=== PATIENT | female | born 1975 | race Caucasian/White ===

== ENCOUNTER 2024-07-27 13:11 | Emergency (ER) | payer BC, SELFPAY ==
--- OUTSIDE RECORDS SUMMARY | 2024-07-27 13:14 | XMS_ITS | Clinical Summary ---
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 828226070 (SNOMED CT) Active Marita Adams DNP,SYSTEMS INTEGRATION MANAGER,[place] P Tender point Sacroiliac joint dysfunction 536454280 (SNOMED CT) Active Marita Adams DNP,SYSTEMS INTEGRATION MANAGER,[place] P Sacroiliac disorder Paresthesia, bilateral legs 22030459 (SNOMED CT) Active Warren Gallagher MD Paresthesia Radicular pain to bilateral lower legs and bilateral feet 70226785 (SNOMED CT) Active Warren Gallagher MD Radicular pain Hip pain 84870784 (SNOMED CT) Active Warren Gallagher MD Hip pain Groin pain 297993886 (SNOMED CT) Active Warren Gallagher MD Inguinal pain Low back pain (LBP) 108561157 (SNOMED CT) Active Warren Gallagher MD Low back pain Medications Medication Instructions Start Date Stop Date Generic Name NDC Provider PREGABALIN 50 MG CAPS 1 capsule by mouth as directed : 1 cap or 50 mg 2 times/day for 1 week. Then increase by 50 mg 2 times/day every 1 week until 200 mg 2 times/day or until pain controlled. pregabalin [id number] Warren Gallagher MD FLUTICASONE PROPIONATE 50 MCG/ACT SUSP Administer 2 spray into both nostrils once a day 07/12 fluticasone propionate 61595913027 Warren Gallagher MD FLUTICASONE PROPIONATE 50 MCG/ACT SUSP Administer 2 spray into both nostrils once a day 07/12 fluticasone propionate 57852447852 Warren Gallagher MD FAMOTIDINE 40 MG TABS Take 1 tablet by mouth twice a day 07/12 famotidine 03717842147 Warren Gallagher MD TRETINOIN 0.025 % CREA Apply 1 pump to skin every night 07/12 tretinoin 28882406354 Warren Gallagher MD IBUPROFEN 200 MG TABS Take 400 mg by mouth 07/12 ibuprofen 87890460975 Warren Gallagher MD CYCLOBENZAPRINE HCL 10 MG TABS Take 1 tablet by mouth every night as needed 07/12 cyclobenzaprine 89589558551 Warren Gallagher MD multivitamin tablet Take 1 tablet by mouth once a day 07/12 multivitamin tablet Warren Gallagher MD LORATADINE 10 MG TBDP Dissolve 10 mg by mouth once a day 07/12 loratadine 49963630180 Warren Gallagher MD ACETAMINOPHEN 500 MG TABS Take by mouth 07/12 acetaminophen 73176227156 Warren Gallagher MD TRETINOIN 0.025 % CREA Apply 1 pump to skin every night 07/12 tretinoin 86766203327 Marita Adams DNP,SYSTEMS INTEGRATION MANAGER,SALES OFFICE ADMINISTRATOR magnesium 200 mg tablet Take 330 mg by mouth every morning magnesium 200 mg tablet Marita Adams DNP,SYSTEMS INTEGRATION MANAGER,SALES OFFICE ADMINISTRATOR ALBUTEROL SULFATE HFA 108 (90 Base) MCG/ACT AERS Inhale 2 puff every six hours as needed 12/19 albuterol sulfate 80415177125 Marita Adams DNP,SYSTEMS INTEGRATION MANAGER,SALES OFFICE ADMINISTRATOR FAMOTIDINE 40 MG TABS Take 1 tablet by mouth twice a day 07/12 famotidine 71282565539 Marita Adams DNPSYSTEMS INTEGRATION MANAGER,SALES OFFICE ADMINISTRATOR ACETAMINOPHEN 500 MG TABS Take by mouth 07/12 acetaminophen 97378076682 Marita Adams DNPSYSTEMS INTEGRATION MANAGER,SALES OFFICE ADMINISTRATOR LORATADINE 10 MG TBDP Dissolve 10 mg by mouth once a day 07/12 loratadine 93502465156 Marita Adams DNPSYSTEMS INTEGRATION MANAGER,SALES OFFICE ADMINISTRATOR CYCLOBENZAPRINE HCL 10 MG TABS Take 1 tablet by mouth every night as needed 07/12 cyclobenzaprine 73425377445 Marita Adams DNP,SYSTEMS INTEGRATION MANAGER,SALES OFFICE ADMINISTRATOR FLUTICASONE PROPIONATE 50 MCG/ACT SUSP Administer 2 spray into both nostrils once a day 07/12 fluticasone propionate 15329491389 Marita Adams DNPSYSTEMS INTEGRATION MANAGER,SALES OFFICE ADMINISTRATOR LIDOCAINE VISCOUS HCL 2 % SOLN Apply 10 ml every six hours as needed 12/19 lidocaine hcl 69842327886 Marita Adams DNPSYSTEMS INTEGRATION MANAGER,SALES OFFICE ADMINISTRATOR multivitamin tablet Take 1 tablet by mouth once a day 07/12 multivitamin tablet Marita Adams DNP,SYSTEMS INTEGRATION MANAGER,SALES OFFICE ADMINISTRATOR IBUPROFEN 200 MG TABS Take 400 mg by mouth 07/12 ibuprofen 82364361959 Marita Adams DNPSYSTEMS INTEGRATION MANAGER,SALES OFFICE ADMINISTRATOR FLUTICASONE PROPIONATE 50 MCG/ACT SUSP Administer 2 spray into both nostrils once a day 08/15 fluticasone propionate 82466374427 Marita Adams DNPSYSTEMS INTEGRATION MANAGER,SALES OFFICE ADMINISTRATOR TRETINOIN 0.025 % CREA APPLY ONE APPLICATION TOPICALLY AT BEDTIME 12/19 tretinoin 44764632324 QIEUSER QIEUSER multivitamin tablet Take 1 tablet by mouth daily. 12/19 multivitamin tablet QIEUSER QIEUSER magnesium 200 mg tablet Take 330 mg by mouth every morning before breakfast. 12/19 magnesium 200 mg tablet QIEUSER QIEUSER LORATADINE 10 MG TBDP Dissolve 10 mg in the mouth daily. Seasonal; summer and fall 12/19 loratadine 92239789840 QIEUSER QIEUSER LIDOCAINE VISCOUS HCL 2 % SOLN Apply 10 mL to the mouth or throat every 6 (six) hours as needed for pain. 12/19 lidocaine hcl 53782389408 QIEUSER QIEUSER IBUPROFEN 200 MG TABS Take 400 mg by mouth. 12/19 ibuprofen 35548147201 QIEUSER QIEUSER FLUTICASONE PROPIONATE 50 MCG/ACT SUSP Administer 2 sprays into each nostril daily. 12/19 fluticasone propionate 84459627664 QIEUSER QIEUSER FLUTICASONE PROPIONATE 50 MCG/ACT SUSP Administer 2 sprays into each nostril daily. 08/15 fluticasone propionate 50608808605 QIEUSER QIEUSER FAMOTIDINE 40 MG TABS Take 1 tablet (40 mg total) by mouth 2 (two) times a day. 12/19 famotidine 71852986483 QIEUSER QIEUSER CYCLOBENZAPRINE HCL 10 MG TABS TAKE ONE TABLET BY MOUTH AT BEDTIME NEEDED FOR MUSCLE SPASMS 12/19 cyclobenzaprine 98231558090 QIEUSER QIEUSER ALBUTEROL SULFATE HFA 108 (90 Base) MCG/ACT AERS Inhale 2 puffs every 6 (six) hours as needed for wheezing for up to 14 days. 12/19 albuterol sulfate 58844740943 QIEUSER QIEUSER ACETAMINOPHEN 500 MG TABS Take by mouth. 12/19 acetaminophen 64913833668 QIEUSER QIEUSER Medications Administered No information available. Allergies, Adverse Reactions, Alerts Allergy Name Reaction Description Start Date Severity Statu s Provider LEVOFLOXACIN Nausea And Vomiting Mild Active Ellis Marin Results Date Name Value Unit Range Flag Description Internal Other: Authorizatio n - OBS [email or web address] Yes Authoriza tion: Release of Information - Authorize [facility] - Payment and Healthcare Operations ROIAUTHOTHER Yes Authoriz ation: Release of Information - Authorize Others/Insurance - Payment and Healthcare Operations HIECONSENT Yes Consent To Release information to the Health Information Exchange (HIE) [email or web address] Yes Authorizat ion: Authorization for [facility] to leave messages, voicemail, send text messages, send emails AUTHRELHCARE Yes Authoriz ation: Release/Retrieval of Information to/from Healthcare Facilities, Pharmacy Benefit Payers and Providers AUTHPRIVPRAC Yes Authoriz ation: Notice of privacy practices AUTHBENEFIT Yes Authoriza tion: Assignment of Benefits and Payment Agreement Internal Other: Verbal Autho rization/Emergency Contact - OBS VERBAL_EMER Done Verbal au thorization and emergency contact Office Visit: Office Visit f ax+mail MEDS REVIEW Done Documenta tion of current medications (procedure) Plan of Care Type Date Detail Referral Other Referral Pending order Follow up Pending order Follow up Pending order Follow up Pending order Follow up Pending order Immunofixation S marty w/Electrophoresis Pending order Other Test Pending order Update Referring Provider Pending order Follow up with N eurologist or EDDIE Pending order Update Referring Provider Pending order Follow up as nee ded Pending order EMG bilateral lo w ext Procedures Code Procedure Name Date Entry Date [facility]-[id number] Documentation of current medicatio ns ORDERS Immunofixation Serum w/Electrophoresis 24/04/15 ORDERS Other Test CPT-45996 Skin Biopsy, 1 lesion 03/12 CPT-06877 Skin Biopsy, each additional lesion 03/12 ORDERS Update Referring Provider 22/02/19 ORDERS Update Referring Provider 20 24/12/19 ORDERS Other Referral ORDERS Follow up as needed ORDERS Follow up with Neurologist or EDDIE ORDERS EMG bilateral low ext 11/20 CPT-55128 Nerve Conduction 7-8 studies CPT-44224 EMG with NCS (5+ muscles) - 2 limbs 12/17 [facility]-[id number] Documentation of current medicatio ns Vital Signs Date Name Value Unit Description Heart Rate 66 /min pulse rate Immunizations No information available. Advance Directives No information available.
[2024-07-27 13:30] VITALS: BP 143/91; PULSE 85; RESP 16; TEMP 36.6; O2SAT 98; BMI 18.1
--- NOTE | 2024-07-27 14:05 | ED.GENADULT ---
HPI - General Adult General Chief complaint: Psychiatric Problem/Disorder <Marisela Means MD - Last Filed: 08/02/24 08:20> Stated complaint: would like drug screen <Marisela Means MD - Last Filed: 08/02/24 08:20> Time Seen by Provider: 07/27/24 13:15 <Marisela Means MD - Last Filed: 08/02/24 08:20> Source: patient and family <Marisela Means MD - Last Filed: 08/02/24 08:20> Mode of arrival: ambulatory <Marisela Means MD - Last Filed: 08/02/24 08:20> Limitations: altered mental status <Marisela Means MD - Last Filed: 08/02/24 08:20> History of Present Illness HPI narrative: 49-year-old female presenting today requesting a toxicology screen because she believes that her is poisoning her. Patient states that she has not been able to sleep for 3 days and when she does sleep she wakes up in the middle of the night not feeling well. She is convinced that her is trying to poison her. She states that she has asked him to move out and he refuses. She states that she has seen multiple doctors in the last several weeks and they are all trying to ?dope her up?. She states that she stop taking all of her medications because of this. Patient is also requesting a hepatitis screen. She states that she has never had 1 and she feels this is necessary. Patient's vjxpxc-ni-anp is here with her and is quite concerned about the patient's behavior. She states that the patient has not slept at all in the last 3 days and she has been very manic and paranoid. The this is not necessarily new behavior according to the zqdntv-ul-cqf, however it has progressively gotten worse. Ctjxkl-jp-vne also states that the patient has mentioned on multiple occasions wanting to kill herself, patient herself denies this today. Looking through medical records from [facility]: Past medical history significant for back pain, tobacco use disorder, depression, anxiety. Patient was on ProAir inhaler as needed, Cymbalta, was on hydrocodone in the past for her pain. Family history: Mother has a history of hypertension, thyroid disease, dementia, anxiety, bipolar disorder, depression, lung cancer. Father had aortic stenosis, kidney disease, hypertension and history of stroke. Patient's son has ADD, ADHD, anxiety, PTSD. Her other son has anxiety, ADHD. Allergies include Levaquin which causes nausea and vomiting. <Marisela Means MD - Last Filed: 08/02/24 08:20> Related Data Home medications: Previous Rx's ?Medication ?Instructions ?Recorded lorazepam 2 mg tablet (Ativan) 2 mg PO QHS PRN #1 tab 07/28/24 <Marisela Means MD - Last Filed: 08/02/24 08:20> Allergies/adverse reactions: Allergies Allergy/AdvReac Type Severity Reaction Status Date / Time levofloxacin (From Levaquin) AdvReac nausea Verified 07/27/24 14:06 <Marisela Means MD - Last Filed: 08/02/24 08:20> Review of Systems Status of ROS: Reports: 10 or more systems reviewed and unremarkable except as noted in History and below <Marisela Means MD - Last Filed: 08/02/24 08:20> PFSH PFS Social History: Social History Smoking Status: Current every day smoker Do you use any of these nicotine containing products: None Non-prescribed substance use details: uses cbd and thc <Marisela Menas MD - Last Filed: 08/02/24 08:20> Exam Narrative: Exam Narrative: Well-nourished well-developed patient in no acute distress. Alert and oriented x3. Patient is very animated, speech is pressured and loud, and includes endless expletives. The patient appears to be very angry and her current situation, angry that her is trying to kill her. She is exhibiting tangential and irrational thoughts. Very difficult to keep the patient on task. Patient speaks in full sentences without needing to catch her breath. HEENT: Normocephalic atraumatic. Pupils are equally round reactive to light. Extraocular muscles are intact. Conjunctivae are moist without any icterus noted. Moist mucous membranes. Neck is soft without any lymphadenopathy or thyromegaly. No masses are appreciated. Cardiovascular: Heart is regular rate and rhythm S1 and S2 are present without any murmurs. Lungs: Clear to auscultation bilaterally no wheezes rhonchi or rales are appreciated. Patient takes deep breaths without any discomfort. Abdomen: Soft and nontender nondistended with normal bowel sounds. Extremities: Bilateral lower extremities are without edema. Normal DP and PT pulses. Skin: Well perfused without any obvious rashes. <Marisela Means MD - Last Filed: 08/02/24 08:20> Const: Vital Signs, click to edit/add: Vital Signs - 24 hr 07/27/24 13:30 07/27/24 21:00 07/28/24 08:00 Temperature 97.9 F 97.1 F L 98.5 F Pulse Rate [Right Pulse Oximeter] 85 64 61 Respiratory Rate 16 16 18 Blood Pressure [Le ft Upper Arm] 143/91 H 135/91 H 123/60 Pulse Oximetry 98 95 94 Oxygen Delivery Me thod Room Air Room Air Room Air <Marisela Means MD - Last Filed: 08/02/24 08:20> Vital Signs, click to edit/add: Vital Signs - 24 hr 07/27/24 13:30 07/27/24 21:00 07/28/24 08:00 Temperature 97.9 F 97.1 F L 98.5 F Pulse Rate [Right Pulse Oximeter] 85 64 61 Respiratory Rate 16 16 18 Blood Pressure [Le ft Upper Arm] 143/91 H 135/91 H 123/60 Pulse Oximetry 98 95 94 Oxygen Delivery Me thod Room Air Room Air Room Air <Vee Nguyen MD - Last Filed: 07/30/24 23:54> Vital Signs, click to edit/add: Vital Signs - 24 hr 07/27/24 13:30 07/27/24 21:00 07/28/24 08:00 Temperature 97.9 F 97.1 F L 98.5 F Pulse Rate [Right Pulse Oximeter] 85 64 61 Respiratory Rate 16 16 18 Blood Pressure [Le ft Upper Arm] 143/91 H 135/91 H 123/60 Pulse Oximetry 98 95 94 Oxygen Delivery Me thod Room Air Room Air Room Air <Tong Melgoza MD - Last Filed: 07/28/24 00:20> Vital Signs, click to edit/add: Vital Signs - 24 hr 07/27/24 13:30 07/27/24 21:00 07/28/24 08:00 Temperature 97.9 F 97.1 F L 98.5 F Pulse Rate [Right Pulse Oximeter] 85 64 61 Respiratory Rate 16 16 18 Blood Pressure [Le ft Upper Arm] 143/91 H 135/91 H 123/60 Pulse Oximetry 98 95 94 Oxygen Delivery Me thod Room Air Room Air Room Air <Marisela Nguyen MD - Last Filed: 07/28/24 12:46> Course Course ED Course: Upon further review of the patient's medical records she has been dealing with chronic pain, has been having bilateral low back pain leg pain feet pain. She had an L4-L5 injection which made her symptoms worse. Is also complaining of neck shoulder hips and ankle pain. She has gone through extensive testing including EMG testing as well as multiple specific laboratory examinations which have been unremarkable. Them RI of the lumbar spine did not show any significant pathology she had an epidermal nerve fiber density test which was normal. These things involved none in the last couple of months. She has also been seen by production line assembler: Abdominal CT and pelvic MRI both done within the last year. She has also seen ENT recently in patient overall is very upset that she has seen so many doctors and has not had a definitive diagnosis regarding her myriad of symptoms. We did go ahead and draw labs including a drug screen and hepatitis panel. Blood work is unremarkable. Drug screen is positive for THC which the patient admits to taking for pain control. Patient had a mental health evaluation from [facility] -it was difficult for her to hold a conversation and the pfqtmx-uc-jds did not want to speak frankly in front of the patient. However, again we went on for the patient's jujxow-wm-bnu states that the patient has mention suicide more than 1 occasion, has not slept in 3 days and has been behaving very erratically over the last several days. Because of this I do not feel it is safe for this patient to go home at this time. I did discuss this with her. Patient tells me that she does not trust any doctors or any hospitals and that she knows that every one is trying to kill her. Because of this, patient will be placed on hold at this time. Inpatient psychiatric evaluation recommended. <Marisela Means MD - Last Filed: 08/02/24 08:20> Upon further review of the patient's medical records she has been dealing with chronic pain, has been having bilateral low back pain leg pain feet pain. She had an L4-L5 injection which made her symptoms worse. Is also complaining of neck shoulder hips and ankle pain. She has gone through extensive testing including EMG testing as well as multiple specific laboratory examinations which have been unremarkable. Them RI of the lumbar spine did not show any significant pathology she had an epidermal nerve fiber density test which was normal. These things involved none in the last couple of months. She has also been seen by production line assembler: Abdominal CT and pelvic MRI both done within the last year. She has also seen ENT recently in patient overall is very upset that she has seen so many doctors and has not had a definitive diagnosis regarding her myriad of symptoms. We did go ahead and draw labs including a drug screen and hepatitis panel. Blood work is unremarkable. Drug screen is positive for THC which the patient admits to taking for pain control. Patient had a mental health evaluation from [facility] -it was difficult for her to hold a conversation and the phmvgo-jp-mpv did not want to speak frankly in front of the patient. However, again we went on for the patient's zyhipc-gu-vvh states that the patient has mention suicide more than 1 occasion, has not slept in 3 days and has been behaving very erratically over the last several days. Because of this I do not feel it is safe for this patient to go home at this time. I did discuss this with her. Patient tells me that she does not trust any doctors or any hospitals and that she knows that every one is trying to kill her. Because of this, patient will be placed on hold at this time. Inpatient psychiatric evaluation recommended. Patient signed out to Dr. Melgoza at shift change-[address] Means 49-year-old female presenting to the ER today with family. Has had recent paranoid delusions that her 's trying to poison her and also dealing with chronic pain and mental health problems. She is now developing paranoid thoughts that her doctors are trying to poison her with medications. She has been increasingly agitated and anxious at home. She stopped her recent medications, apparently due to her paranoid thoughts. Family reports that she has not had any sleep for 3 days. She has also made some suicidal statements. She has been angry and sometimes belligerent but not violent. She has been assessed and is medically clear. She has been evaluated by [facility] and they recommend inpatient mental health placement She believes that inpatient mental health placement is an attempt to poison her. Therefore she has been placed on hold by Dr. Means I reassessed the patient at about 9:30 p.m.. Her sxqufx-fr-dhz was at her bedside. Patient remained paranoid, guarded, and denying that she has any problems. She is refusing to eat or drink any food that we give her here in the hospital because she is concerned that it might be poisoned. She says she will only drink ?hy Vee water. ?. Her fsvwgf-mi-nxd is reassuring and they interact well together. Discussed the plan is for her to remain on a hold. Unfortunately way of not yet been able to identify any appropriate inpatient mental health unit to meet her needs. Therefore she will have to board here in the [facility] until a bed becomes available, possibly overnight. I offered her food and water here but she refused. I offered medications for anxiety or insomnia and she is refusing, citing that she thinks I am trying to poison her. Recheck-her nurse reports that she is willing to take an Ativan. Ativan 1 mg p.o. ordered. Nurses report that she did have some water and a salad and a small snack. Signed out to Dr. Nguyen <Tong Melgoza MD - Last Filed: 07/28/24 00:20> Reevaluation(s) Time of Reevaluation #1: 00:03 <Vee Nguyen MD - Last Filed: 07/30/24 23:54> Reevaluation #1: Dr. Nguyen- I assumed care for patient overnight. Chart is reviewed. Classic choco symptoms. Will start 250 Depakote delayed release b.i.d. will we continue to await placement. Labs are reviewed, no contraindications. End of shift update: Patient ambulated to bathroom overnight, was calm and respectful with staff. Still verbalizing paranoid delusions but no aggressive or problematic behavior. She declined to take the Depakote which is not terribly surprising, it is still ordered for her to take twice daily and will continue to be offered. Vitals have remained stable, has not required any additional intervention. Labs were reviewed with no additional concerns. We are awaiting potential transfer later today. <Vee Nguyen MD - Last Filed: 07/30/24 23:54> Consultations Consultation #1: Spoke with the tele psychiatrist Dr. Reynoso. Went over patient's history, she will talk to the patient, review prior notes. 12:19 p.m.: The psychiatrist spoke with Nicole the krrlpu-lr-fvz, spoke with the patient. Both the psychiatrist and the hvpqcn-mg-vgr feel that a psychiatric hospitalization is not going to be helpful or good for this patient. They both feel that she has no harm to others or herself. This CT wrist does note her to be intense and irritable and angry but the bslkyb-tj-ojp does endorse that her has been mean to her that this is true. She does not feel that she is necessarily delusional. In the past when she has ramped up like this, sleep has calmed her down. She does have future appointments for her physical issues, the psychiatrist does wonder about somatic type pain in this patient. Discussing bipolar disorder does flare her. She is wondering if we could get her prescription for 2 mg of oral Ativan and try to have her sleep. She is recommending discharge. We discussed other potential sleep aids that I could talk to the patient. She thought mirtazapine or trazodone might be beneficial. I did subsequently review this with the patient. She has tried trazodone in the past and did not help her. She has also used Ambien was sleep walking with that. She does talk about her physical pain, she is having hysteroscopy, CT next week. She does states that she is done genetic testing for psychiatric medications. She states citalopram, many other medicines she is found not respond to. She has tried melatonin vkor-ixr-giawzpx sleep aids. She is agreeable to go back to talk to the pharmacist to reviewed this genetic testing with her, was done at [facility]. Reviewed with her that I do not have any long-term sleep solution for her. I do not have access to her [facility] records. I do recommend that she follow up there if she is having ongoing issues. She is agreeable to trying 2 mg oral Ativan to try to get some sleep at home. If this is not helping, may need to proceed for further medical evaluation. She may need inpatient psychiatric evaluation if this is not helpful. <Marisela Nguyen MD - Last Filed: 07/28/24 12:46> Time: 11:24 <Marisela Nguyen MD - Last Filed: 07/28/24 12:46> Vital Signs Vital signs: Initial Vital Signs Temperature 97.9 F 07/27/24 13:30 Temperature Source Oral 07/27/24 13:30 Pulse Rate 85 07/27/24 13:30 Respiratory Rate 16 07/27/24 13:30 Blood Pressure 143/91 H 07/27/24 13:30 Blood Pressure Mean 108 H 07/27/24 13:30 Blood Pressure Position Sitting 07/27/24 13:30 Pulse Oximetry 98 07/27/24 13:30 Oxygen Delivery Method Room Air 07/27/24 13:30 Vital Signs Temperature 97.9 F 07/27/24 13:30 Pulse Rate 85 07/27/24 13:30 Respiratory Rate 16 07/27/24 13:30 Blood Pressure 143/91 H 07/27/24 13:30 Pulse Oximetry 98 07/27/24 13:30 Oxygen Delivery Method Room Air 07/27/24 13:30 Temperature 98.5 F 07/28/24 08:00 Pulse Rate 61 07/28/24 08:00 Respiratory Rate 18 07/28/24 08:00 Blood Pressure 123/60 07/28/24 08:00 Pulse Oximetry 94 07/28/24 08:00 Oxygen Delivery Method Room Air 07/28/24 08:00 <Marisela Means MD - Last Filed: 08/02/24 08:20> Initial Vital Signs Temperature 97.9 F 07/27/24 13:30 Temperature Source Oral 07/27/24 13:30 Pulse Rate 85 07/27/24 13:30 Respiratory Rate 16 07/27/24 13:30 Blood Pressure 143/91 H 07/27/24 13:30 Blood Pressure Mean 108 H 07/27/24 13:30 Blood Pressure Position Sitting 07/27/24 13:30 Pulse Oximetry 98 07/27/24 13:30 Oxygen Delivery Method Room Air 07/27/24 13:30 Vital Signs Temperature 97.9 F 07/27/24 13:30 Pulse Rate 85 07/27/24 13:30 Respiratory Rate 16 07/27/24 13:30 Blood Pressure 143/91 H 07/27/24 13:30 Pulse Oximetry 98 07/27/24 13:30 Oxygen Delivery Method Room Air 07/27/24 13:30 Temperature 98.5 F 07/28/24 08:00 Pulse Rate 61 07/28/24 08:00 Respiratory Rate 18 07/28/24 08:00 Blood Pressure 123/60 07/28/24 08:00 Pulse Oximetry 94 07/28/24 08:00 Oxygen Delivery Method Room Air 07/28/24 08:00 <Vee Nguyen MD - Last Filed: 07/30/24 23:54> Initial Vital Signs Temperature 97.9 F 07/27/24 13:30 Temperature Source Oral 07/27/24 13:30 Pulse Rate 85 07/27/24 13:30 Respiratory Rate 16 07/27/24 13:30 Blood Pressure 143/91 H 07/27/24 13:30 Blood Pressure Mean 108 H 07/27/24 13:30 Blood Pressure Position Sitting 07/27/24 13:30 Pulse Oximetry 98 07/27/24 13:30 Oxygen Delivery Method Room Air 07/27/24 13:30 Vital Signs Temperature 97.9 F 07/27/24 13:30 Pulse Rate 85 07/27/24 13:30 Respiratory Rate 16 07/27/24 13:30 Blood Pressure 143/91 H 07/27/24 13:30 Pulse Oximetry 98 07/27/24 13:30 Oxygen Delivery Method Room Air 07/27/24 13:30 Temperature 98.5 F 07/28/24 08:00 Pulse Rate 61 07/28/24 08:00 Respiratory Rate 18 07/28/24 08:00 Blood Pressure 123/60 07/28/24 08:00 Pulse Oximetry 94 07/28/24 08:00 Oxygen Delivery Method Room Air 07/28/24 08:00 <Tong Melgoza MD - Last Filed: 07/28/24 00:20> Initial Vital Signs Temperature 97.9 F 07/27/24 13:30 Temperature Source Oral 07/27/24 13:30 Pulse Rate 85 07/27/24 13:30 Respiratory Rate 16 07/27/24 13:30 Blood Pressure 143/91 H 07/27/24 13:30 Blood Pressure Mean 108 H 07/27/24 13:30 Blood Pressure Position Sitting 07/27/24 13:30 Pulse Oximetry 98 07/27/24 13:30 Oxygen Delivery Method Room Air 07/27/24 13:30 Vital Signs Temperature 97.9 F 07/27/24 13:30 Pulse Rate 85 07/27/24 13:30 Respiratory Rate 16 07/27/24 13:30 Blood Pressure 143/91 H 07/27/24 13:30 Pulse Oximetry 98 07/27/24 13:30 Oxygen Delivery Method Room Air 07/27/24 13:30 Temperature 98.5 F 07/28/24 08:00 Pulse Rate 61 07/28/24 08:00 Respiratory Rate 18 07/28/24 08:00 Blood Pressure 123/60 07/28/24 08:00 Pulse Oximetry 94 07/28/24 08:00 Oxygen Delivery Method Room Air 07/28/24 08:00 <Marisela Nguyen MD - Last Filed: 07/28/24 12:46> Medications Administered Medications: Discontinued Medications Generic Name Dose Route Start Last Admin Trade Name Freq PRN Reason Stop Dose Admin Divalproex Sodium 250 mg 07/28/24 00:05 07/28/24 09:08 Divalproex Delayed Release 250 Mg Tablet PO Not Given BID CHERELLE Lorazepam 1 mg 07/27/24 16:16 07/27/24 16:20 Lorazepam 1 Mg Tablet PO 07/27/24 16:17 1 mg ONCE ONE Administration Lorazepam 1 mg 07/27/24 22:57 07/27/24 23:07 Lorazepam 1 Mg Tablet PO 07/27/24 22:58 1 mg ONCE ONE Administration Olanzapine 10 mg 07/27/24 16:12 07/27/24 16:15 Olanzapine 5 Mg Tab.Rapdis PO 07/27/24 16:13 Not Given ONCE ONE <Marisela Means MD - Last Filed: 08/02/24 08:20> Discontinued Medications Generic Name Dose Route Start Last Admin Trade Name Freq PRN Reason Stop Dose Admin Divalproex Sodium 250 mg 07/28/24 00:05 07/28/24 09:08 Divalproex Delayed Release 250 Mg Tablet PO Not Given BID CHERELLE Lorazepam 1 mg 07/27/24 16:16 07/27/24 16:20 Lorazepam 1 Mg Tablet PO 07/27/24 16:17 1 mg ONCE ONE Administration Lorazepam 1 mg 07/27/24 22:57 07/27/24 23:07 Lorazepam 1 Mg Tablet PO 07/27/24 22:58 1 mg ONCE ONE Administration Olanzapine 10 mg 07/27/24 16:12 07/27/24 16:15 Olanzapine 5 Mg Tab.Rapdis PO 07/27/24 16:13 Not Given ONCE ONE <Vee Nguyen MD - Last Filed: 07/30/24 23:54> Discontinued Medications Generic Name Dose Route Start Last Admin Trade Name Freq PRN Reason Stop Dose Admin Divalproex Sodium 250 mg 07/28/24 00:05 07/28/24 09:08 Divalproex Delayed Release 250 Mg Tablet PO Not Given BID CHERELLE Lorazepam 1 mg 07/27/24 16:16 07/27/24 16:20 Lorazepam 1 Mg Tablet PO 07/27/24 16:17 1 mg ONCE ONE Administration Lorazepam 1 mg 07/27/24 22:57 07/27/24 23:07 Lorazepam 1 Mg Tablet PO 07/27/24 22:58 1 mg ONCE ONE Administration Olanzapine 10 mg 07/27/24 16:12 07/27/24 16:15 Olanzapine 5 Mg Tab.Rapdis PO 07/27/24 16:13 Not Given ONCE ONE <Tong Melgoza MD - Last Filed: 07/28/24 00:20> Discontinued Medications Generic Name Dose Route Start Last Admin Trade Name Freq PRN Reason Stop Dose Admin Divalproex Sodium 250 mg 07/28/24 00:05 07/28/24 09:08 Divalproex Delayed Release 250 Mg Tablet PO Not Given BID CHERELLE Lorazepam 1 mg 07/27/24 16:16 07/27/24 16:20 Lorazepam 1 Mg Tablet PO 07/27/24 16:17 1 mg ONCE ONE Administration Lorazepam 1 mg 07/27/24 22:57 07/27/24 23:07 Lorazepam 1 Mg Tablet PO 07/27/24 22:58 1 mg ONCE ONE Administration Olanzapine 10 mg 07/27/24 16:12 07/27/24 16:15 Olanzapine 5 Mg Tab.Rapdis PO 07/27/24 16:13 Not Given ONCE ONE <Marisela Nguyen MD - Last Filed: 07/28/24 12:46> Medical Decision Making MDM Narrative Medical decision making narrative: 49-year-old female with paranoid delusions. Concern about self-harm. Patient will be transferred to inpatient psych. <Marisela Means MD - Last Filed: 08/02/24 08:20> Lab Data Lab results reviewed: Yes I reviewed the patient's lab results <Vee Nguyen MD - Last Filed: 07/30/24 23:54> Lab results narrative: Labs reassuring. <Vee Nguyen MD - Last Filed: 07/30/24 23:54> Labs: Lab Results 07/27/24 07/27/24 07/27/24 Range/Units 14:24 14:25 14:30 WBC 9.51 (4.50-11.00) K/uL RBC 4.77 (4.00-5.20) m/uL Hgb 14.3 (12.0-16.0) gm/dL Hct 43.5 (33.0-51.0) % MCV 91 (80-100) fL MCH 30 (26-34) pg MCHC 33 (32-36) gm/dL RDW Coeff of Halley 12.2 (11.5-15.5) % Plt Count 328 (140-440) K/uL Neut % (Auto) 67.4 (42.0-72.0) % Lymph % (Auto) 24.8 (20-44) % Clinch % (Auto) 6.3 (0.0-11.0) % Eos % (Auto) 0.9 (0.0-7.0) % Baso % (Auto) 0.4 (0.0-3.0) % Neut # (Auto) 6.40 (1.7-7.0) K/uL Lymph # (Auto) 2.36 (0.90-2.90) K/uL Clinch # (Auto) 0.60 (0.00-0.90) K/UL Eos # (Auto) 0.09 (0.00-0.50) K/uL Baso # (Auto) 0.04 (0.00-0.30) K/uL Abs Immat Gran (auto) 0.02 (0.00-0.30) K/uL Imm/Tot Granulo (auto) 0.2 % Sodium 141 (135-149) mmol/L Potassium 3.8 (3.6-5.1) mmol/L Chloride 106 (96-114) mmol/L Carbon Dioxide 26 (20-32) mmol/L Anion Gap 9 (7-15) mEq/L BUN 17 (5-24) mg/dL Creatinine 0.6 (0.5-1.5) mg/dL Estimated Creat Clear 90.96 Estimated GFR 110 ml/min Glucose 100 (60-115) mg/dL Calcium 9.6 (8.4-10.6) mg/dL Total Bilirubin 0.4 (0.1-1.5) mg/dL Direct Bilirubin 0.2 (0.0-0.5) mg/dL AST 18 (12-35) U/L ALT 19 (4-35) U/L Alkaline Phosphatase 69 (40-150) U/L Total Protein 6.9 (6.0-8.3) g/dL Albumin 4.5 (3.3-5.0) g/dL TSH 0.676 (0.270-4.20) uIU/mL Urine Color Yellow (Yellow) Urine Appearance Clear (Clear) Urine pH 6.0 (5.0-8.5) Ur Specific [place] 1.020 (1.000-1.030) Urine Protein Negative (Negative) Urine Glucose (UA) Negative (Negative) Urine Ketones Negative (Negative) Urine Blood Negative (Negative) Urine Nitrite Negative (Negative) Urine Bilirubin Negative (Negative) Urine Urobilinogen 0.2 (0.2-1.0) Ur Leukocyte Esterase Negative (Negative) Urine RBC 0-2 (0-2) Urine WBC 0-2 (0-5) Ur Squamous Epith Cells None (None-Few) Urine Bacteria None (None) Urine HCG, Qual Negative (Negative) Salicylates < 1.0 L (1.0-10) mg/dL Urine Opiates Screen Negative (Negative) Ur Oxycodone Screen Negative (Negative) Urine Methadone Screen Negative (Negative) Acetaminophen < 10.0 L (10.0-30.0) ug/mL Ur Barbiturates Screen Negative (Negative) U Tricyclic Antidepress Negative (Negative) Ur Phencyclidine Scrn Negative (Negative) Ur Amphetamines Screen Negative (Negative) U Methamphetamines Scrn Negative (Negative) U Benzodiazepines Scrn Negative (Negative) Urine Cocaine Screen Negative (Negative) U Marijuana (THC) Screen POSITIVE A (Negative) Ur Drug Screen Comment See Note Ethyl Alcohol < 0.00 L (0.01-0.03) % SARS-CoV-2 (PCR) Negative SARS-CoV-2 (Negative) Hepatitis A IgM Ab Negative (Negative) Hep Bs Antigen Negative (Negative) Hep B Core IgM Ab Negative (Negative) Hep C Ab Index (SERENA) 0.13 IV Hep C Ab Interp SERENA Negative (Negative) Hepatitis Interpret See Note <Marisela Means MD - Last Filed: 08/02/24 08:20> Lab Results 07/27/24 07/27/24 07/27/24 Range/Units 14:24 14:25 14:30 WBC 9.51 (4.50-11.00) K/uL RBC 4.77 (4.00-5.20) m/uL Hgb 14.3 (12.0-16.0) gm/dL Hct 43.5 (33.0-51.0) % MCV 91 (80-100) fL MCH 30 (26-34) pg MCHC 33 (32-36) gm/dL RDW Coeff of Halley 12.2 (11.5-15.5) % Plt Count 328 (140-440) K/uL Neut % (Auto) 67.4 (42.0-72.0) % Lymph % (Auto) 24.8 (20-44) % Clinch % (Auto) 6.3 (0.0-11.0) % Eos % (Auto) 0.9 (0.0-7.0) % Baso % (Auto) 0.4 (0.0-3.0) % Neut # (Auto) 6.40 (1.7-7.0) K/uL Lymph # (Auto) 2.36 (0.90-2.90) K/uL Clinch # (Auto) 0.60 (0.00-0.90) K/UL Eos # (Auto) 0.09 (0.00-0.50) K/uL Baso # (Auto) 0.04 (0.00-0.30) K/uL Abs Immat Gran (auto) 0.02 (0.00-0.30) K/uL Imm/Tot Granulo (auto) 0.2 % Sodium 141 (135-149) mmol/L Potassium 3.8 (3.6-5.1) mmol/L Chloride 106 (96-114) mmol/L Carbon Dioxide 26 (20-32) mmol/L Anion Gap 9 (7-15) mEq/L BUN 17 (5-24) mg/dL Creatinine 0.6 (0.5-1.5) mg/dL Estimated Creat Clear 90.96 Estimated GFR 110 ml/min Glucose 100 (60-115) mg/dL Calcium 9.6 (8.4-10.6) mg/dL Total Bilirubin 0.4 (0.1-1.5) mg/dL Direct Bilirubin 0.2 (0.0-0.5) mg/dL AST 18 (12-35) U/L ALT 19 (4-35) U/L Alkaline Phosphatase 69 (40-150) U/L Total Protein 6.9 (6.0-8.3) g/dL Albumin 4.5 (3.3-5.0) g/dL TSH 0.676 (0.270-4.20) uIU/mL Urine Color Yellow (Yellow) Urine Appearance Clear (Clear) Urine pH 6.0 (5.0-8.5) Ur Specific [place] 1.020 (1.000-1.030) Urine Protein Negative (Negative) Urine Glucose (UA) Negative (Negative) Urine Ketones Negative (Negative) Urine Blood Negative (Negative) Urine Nitrite Negative (Negative) Urine Bilirubin Negative (Negative) Urine Urobilinogen 0.2 (0.2-1.0) Ur Leukocyte Esterase Negative (Negative) Urine RBC 0-2 (0-2) Urine WBC 0-2 (0-5) Ur Squamous Epith Cells None (None-Few) Urine Bacteria None (None) Urine HCG, Qual Negative (Negative) Salicylates < 1.0 L (1.0-10) mg/dL Urine Opiates Screen Negative (Negative) Ur Oxycodone Screen Negative (Negative) Urine Methadone Screen Negative (Negative) Acetaminophen < 10.0 L (10.0-30.0) ug/mL Ur Barbiturates Screen Negative (Negative) U Tricyclic Antidepress Negative (Negative) Ur Phencyclidine Scrn Negative (Negative) Ur Amphetamines Screen Negative (Negative) U Methamphetamines Scrn Negative (Negative) U Benzodiazepines Scrn Negative (Negative) Urine Cocaine Screen Negative (Negative) U Marijuana (THC) Screen POSITIVE A (Negative) Ur Drug Screen Comment See Note Ethyl Alcohol < 0.00 L (0.01-0.03) % SARS-CoV-2 (PCR) Negative SARS-CoV-2 (Negative) Hepatitis A IgM Ab Negative (Negative) Hep Bs Antigen Negative (Negative) Hep B Core IgM Ab Negative (Negative) Hep C Ab Index (SERENA) 0.13 IV Hep C Ab Interp SERENA Negative (Negative) Hepatitis Interpret See Note <Vee Nguyen MD - Last Filed: 07/30/24 23:54> Lab Results 07/27/24 07/27/24 07/27/24 Range/Units 14:24 14:25 14:30 WBC 9.51 (4.50-11.00) K/uL RBC 4.77 (4.00-5.20) m/uL Hgb 14.3 (12.0-16.0) gm/dL Hct 43.5 (33.0-51.0) % MCV 91 (80-100) fL MCH 30 (26-34) pg MCHC 33 (32-36) gm/dL RDW Coeff of Halley 12.2 (11.5-15.5) % Plt Count 328 (140-440) K/uL Neut % (Auto) 67.4 (42.0-72.0) % Lymph % (Auto) 24.8 (20-44) % Clinch % (Auto) 6.3 (0.0-11.0) % Eos % (Auto) 0.9 (0.0-7.0) % Baso % (Auto) 0.4 (0.0-3.0) % Neut # (Auto) 6.40 (1.7-7.0) K/uL Lymph # (Auto) 2.36 (0.90-2.90) K/uL Clinch # (Auto) 0.60 (0.00-0.90) K/UL Eos # (Auto) 0.09 (0.00-0.50) K/uL Baso # (Auto) 0.04 (0.00-0.30) K/uL Abs Immat Gran (auto) 0.02 (0.00-0.30) K/uL Imm/Tot Granulo (auto) 0.2 % Sodium 141 (135-149) mmol/L Potassium 3.8 (3.6-5.1) mmol/L Chloride 106 (96-114) mmol/L Carbon Dioxide 26 (20-32) mmol/L Anion Gap 9 (7-15) mEq/L BUN 17 (5-24) mg/dL Creatinine 0.6 (0.5-1.5) mg/dL Estimated Creat Clear 90.96 Estimated GFR 110 ml/min Glucose 100 (60-115) mg/dL Calcium 9.6 (8.4-10.6) mg/dL Total Bilirubin 0.4 (0.1-1.5) mg/dL Direct Bilirubin 0.2 (0.0-0.5) mg/dL AST 18 (12-35) U/L ALT 19 (4-35) U/L Alkaline Phosphatase 69 (40-150) U/L Total Protein 6.9 (6.0-8.3) g/dL Albumin 4.5 (3.3-5.0) g/dL TSH 0.676 (0.270-4.20) uIU/mL Urine Color Yellow (Yellow) Urine Appearance Clear (Clear) Urine pH 6.0 (5.0-8.5) Ur Specific [place] 1.020 (1.000-1.030) Urine Protein Negative (Negative) Urine Glucose (UA) Negative (Negative) Urine Ketones Negative (Negative) Urine Blood Negative (Negative) Urine Nitrite Negative (Negative) Urine Bilirubin Negative (Negative) Urine Urobilinogen 0.2 (0.2-1.0) Ur Leukocyte Esterase Negative (Negative) Urine RBC 0-2 (0-2) Urine WBC 0-2 (0-5) Ur Squamous Epith Cells None (None-Few) Urine Bacteria None (None) Urine HCG, Qual Negative (Negative) Salicylates < 1.0 L (1.0-10) mg/dL Urine Opiates Screen Negative (Negative) Ur Oxycodone Screen Negative (Negative) Urine Methadone Screen Negative (Negative) Acetaminophen < 10.0 L (10.0-30.0) ug/mL Ur Barbiturates Screen Negative (Negative) U Tricyclic Antidepress Negative (Negative) Ur Phencyclidine Scrn Negative (Negative) Ur Amphetamines Screen Negative (Negative) U Methamphetamines Scrn Negative (Negative) U Benzodiazepines Scrn Negative (Negative) Urine Cocaine Screen Negative (Negative) U Marijuana (THC) Screen POSITIVE A (Negative) Ur Drug Screen Comment See Note Ethyl Alcohol < 0.00 L (0.01-0.03) % SARS-CoV-2 (PCR) Negative SARS-CoV-2 (Negative) Hepatitis A IgM Ab Negative (Negative) Hep Bs Antigen Negative (Negative) Hep B Core IgM Ab Negative (Negative) Hep C Ab Index (SERENA) 0.13 IV Hep C Ab Interp SERENA Negative (Negative) Hepatitis Interpret See Note <Tong Melgoza MD - Last Filed: 07/28/24 00:20> Lab Results 07/27/24 07/27/24 07/27/24 Range/Units 14:24 14:25 14:30 WBC 9.51 (4.50-11.00) K/uL RBC 4.77 (4.00-5.20) m/uL Hgb 14.3 (12.0-16.0) gm/dL Hct 43.5 (33.0-51.0) % MCV 91 (80-100) fL MCH 30 (26-34) pg MCHC 33 (32-36) gm/dL RDW Coeff of Halley 12.2 (11.5-15.5) % Plt Count 328 (140-440) K/uL Neut % (Auto) 67.4 (42.0-72.0) % Lymph % (Auto) 24.8 (20-44) % Clinch % (Auto) 6.3 (0.0-11.0) % Eos % (Auto) 0.9 (0.0-7.0) % Baso % (Auto) 0.4 (0.0-3.0) % Neut # (Auto) 6.40 (1.7-7.0) K/uL Lymph # (Auto) 2.36 (0.90-2.90) K/uL Clinch # (Auto) 0.60 (0.00-0.90) K/UL Eos # (Auto) 0.09 (0.00-0.50) K/uL Baso # (Auto) 0.04 (0.00-0.30) K/uL Abs Immat Gran (auto) 0.02 (0.00-0.30) K/uL Imm/Tot Granulo (auto) 0.2 % Sodium 141 (135-149) mmol/L Potassium 3.8 (3.6-5.1) mmol/L Chloride 106 (96-114) mmol/L Carbon Dioxide 26 (20-32) mmol/L Anion Gap 9 (7-15) mEq/L BUN 17 (5-24) mg/dL Creatinine 0.6 (0.5-1.5) mg/dL Estimated Creat Clear 90.96 Estimated GFR 110 ml/min Glucose 100 (60-115) mg/dL Calcium 9.6 (8.4-10.6) mg/dL Total Bilirubin 0.4 (0.1-1.5) mg/dL Direct Bilirubin 0.2 (0.0-0.5) mg/dL AST 18 (12-35) U/L ALT 19 (4-35) U/L Alkaline Phosphatase 69 (40-150) U/L Total Protein 6.9 (6.0-8.3) g/dL Albumin 4.5 (3.3-5.0) g/dL TSH 0.676 (0.270-4.20) uIU/mL Urine Color Yellow (Yellow) Urine Appearance Clear (Clear) Urine pH 6.0 (5.0-8.5) Ur Specific [place] 1.020 (1.000-1.030) Urine Protein Negative (Negative) Urine Glucose (UA) Negative (Negative) Urine Ketones Negative (Negative) Urine Blood Negative (Negative) Urine Nitrite Negative (Negative) Urine Bilirubin Negative (Negative) Urine Urobilinogen 0.2 (0.2-1.0) Ur Leukocyte Esterase Negative (Negative) Urine RBC 0-2 (0-2) Urine WBC 0-2 (0-5) Ur Squamous Epith Cells None (None-Few) Urine Bacteria None (None) Urine HCG, Qual Negative (Negative) Salicylates < 1.0 L (1.0-10) mg/dL Urine Opiates Screen Negative (Negative) Ur Oxycodone Screen Negative (Negative) Urine Methadone Screen Negative (Negative) Acetaminophen < 10.0 L (10.0-30.0) ug/mL Ur Barbiturates Screen Negative (Negative) U Tricyclic Antidepress Negative (Negative) Ur Phencyclidine Scrn Negative (Negative) Ur Amphetamines Screen Negative (Negative) U Methamphetamines Scrn Negative (Negative) U Benzodiazepines Scrn Negative (Negative) Urine Cocaine Screen Negative (Negative) U Marijuana (THC) Screen POSITIVE A (Negative) Ur Drug Screen Comment See Note Ethyl Alcohol < 0.00 L (0.01-0.03) % SARS-CoV-2 (PCR) Negative SARS-CoV-2 (Negative) Hepatitis A IgM Ab Negative (Negative) Hep Bs Antigen Negative (Negative) Hep B Core IgM Ab Negative (Negative) Hep C Ab Index (SERENA) 0.13 IV Hep C Ab Interp SERENA Negative (Negative) Hepatitis Interpret See Note <Marisela Nguyen MD - Last Filed: 07/28/24 12:46> Discharge Plan Discharge Clinical Impression: Insomnia <Marisela Means MD - Last Filed: 08/02/24 08:20> Patient Disposition: Home, Self-Care <Marisela Means MD - Last Filed: 08/02/24 08:20> Condition: Stable <Marisela Means MD - Last Filed: 08/02/24 08:20> Instructions: Insomnia (ED) <Marisela Means MD - Last Filed: 08/02/24 08:20> Additional Instructions: Try the 2 mg of oral Ativan and see if this will help you sleep. If you are not getting sleep with Ativan, may need to seek further evaluation, would recommend going where the stenotic testing for psychiatric medicines was done. It is unclear at this time if there is possibly some underlying psychiatric illness contributing to the insomnia, continue to proceed with outpatient therapy as you have been doing. Keep your scheduled clinic appointments for next week. Do recommend follow-up with your primary care provider as soon as possible. <Marisela Means MD - Last Filed: 08/02/24 08:20> Activity Level: Activity as Tolerated <Marisela Means MD - Last Filed: 08/02/24 08:20> Activity as Tolerated <Vee Nguyen MD - Last Filed: 07/30/24 23:54> Activity as Tolerated <Tong Melgoza MD - Last Filed: 07/28/24 00:20> Activity as Tolerated <Marisela Nguyen MD - Last Filed: 07/28/24 12:46> Prescriptions: New lorazepam [Ativan] 2 mg tablet 2 mg PO QHS PRNQty: 1 0RF <Marisela Means MD - Last Filed: 08/02/24 08:20> Follow Up/Referrals: Provider,Not a Local [Primary Care Provider] - <Marisela Means MD - Last Filed: 08/02/24 08:20> Stand Alone Forms: MyHealth Info Instructions <Marisela Means MD - Last Filed: 08/02/24 08:20>
--- OUTSIDE RECORDS SUMMARY | 2024-07-27 14:27 | XMS_ITS | Encounter Summary ---
Author Organization [facility] Address [address] [place] [address] Care Team Providers Care Naturopathic Doctor Name Role Phone Sadaf Go APRN C.N.PAngelo, M.S.N. Primary Care Provider Reason for Referral * Outpatient (Routine) - Authorized Specialty Diagnoses / Procedures Referred By Contac t Referred To Contact Obstetrics and Gynecology Diagnoses Perimenopause Micaela Ellington APRN, C.N.P., M.S.N. [address] [place] [address] Phone: tel: fax: [facility] Referral ID Status Reason Start Date Expiration Date V isits Requested Visits Authorized [id number] Authorized 06/13/2024 12/13/2025 1 1 [place] LEASING [place] * Outpatient (Routine) - Authorized Specialty Diagnoses / Procedures Referred By Contact Referred To Contact Radiology / Interventional Radiology Diagnoses Pelvic Congestion Syndrome Micaela Ellington APRN, C.N.P., M.S.N. [address] [place] [address] Phone: tel: fax: [facility] Referral ID Status Reason Start Date Expiration Date V isits Requested Visits Authorized [id number] Authorized 06/13/2024 12/13/2025 1 1 [place] LE[place] Reason for Visit * Reason Comments Results Follow up on results * Outpatient (Routine) - Closed Specialty Diagnoses / Procedures Referred By Yvette zhang Referred To Contact Obstetrics and Gynecology Diagnoses Amenorrhea Bleeding Postmenopausal Pelvic Congestion Syndrome Sadaf Go APRN, C.N.Crispin., M.S.N. [address] [place] [address] Phone: tel: fax: [facility] Referral ID Status Reason Start Date Expiration Date Visits Re quested Visits Authorized [id number] Closed 05/28/2024 11/27/2025 1 1 Encounter Details Date Type Department Care Team (Latest Contact Info) Description 06/13/2024 12:00 PM RETAIL LEASING AGENT Comprehensive Visit Department of Obstetrics and Gynecology in [place], [place] [address] [place] [phone] Micaela Ellington APRN, C.N.Crispin., M.S.N. [address] [place] [phone] Perimenopause (Primary Dx); Pelvic Congestion Syndrome; Pap Smear Examination Discharge Disposition: Home or Self Care Social History Tobacco Use Types Packs/Day Years Used Date Smoking Tobacco: Every Day Cigarettes 1 25 Smokeless Tobacco: Never Tobacco Cessation:Ready to Q uit: Not Asked; Counseling Given: Not Answered Alcohol Use Standard Drinks/Week Comments Yes 2 (1 standard drink = 0.6 oz pur e alcohol) [facility] Utilities Answer Date Recorded In the past 12 months has [employer], gas, oil, or water [employer] threatened to shut off services in your home? No 02/25/2024 Humiliation, Afraid, Rape, and Kick questionnair e Answer Date Recorded Within the last year, have y ou been afraid of your partner or ex-partner? No 02/20/2023 Within the last year, have y ou been humiliated or emotionally abused in other ways by your partner or ex-partner? No Within the last year, have y ou been kicked, hit, slapped, or otherwise physically hurt by your partner or ex-partner? No 02/20/2023 Within the last year, have y ou been raped or forced to have any kind of sexual activity by your partner or ex-partner? No 02/20/2023 Social Connection and Isolation Panel [NHANES] A nswer Date Recorded In a typical week, how many times do you talk on the phone with family, friends, or neighbors? Three times a week 05/13/20 How often do you get togethe r with friends or relatives? Once a week 05/13/2021 How often do you attend chur ch or baptism services? Never 05/13/2021 Do you belong to any clubs o r organizations such as bahai groups, unions, fraternal or athletic groups, or school groups? No 05/13/2021 How often do you attend meet ings of the clubs or organizations you belong to? 1 to 4 times per year 05/13/2021 Are you , , di vorced, , never , or living with a partner? 05/13/2021 AUDIT-C Answer Date Recorded Q1: How often do you have a drink containing alc ohol? 2-4 times a month 12/06/2021 Q2: How many drinks containi ng alcohol do you have on a typical day when you are drinking? 3 or 4 12/06/2021 Q3: How often do you have si x or more drinks on one occasion? Less than monthly 12/06/2021 Overall Financial Resource Strain (CARDIA) Answe r Date Recorded How hard is it for you to pa y for the very basics like food, housing, medical care, and heating? Not hard at all 02/20/2023 PHQ-2 Answer Date Recorded PHQ-2 Score 0 09/07/2023 [facility] [employer] [facility] - Occupational Stress Questionnaire Answer Date Recorded Do you feel stress - tense, restless, nervous, or anxious, or unable to sleep at night because your mind is troubled all the time - these days? Only a little 05/13/2021 Exercise Vital Sign Answer Date Recorde d On average, how many days pe r week do you engage in moderate to strenuous exercise (like a brisk walk)? 6 days 02/25/2024 On average, how many minutes do you engage in exercise at this level? 150+ min 02/25/2024 Hunger Vital Sign Answer Date Recorded Within the past 12 months, y ou worried that your food would run out before you got the money to buy more. Never true 02/25/20 24 Within the past 12 months, t he food you bought just didn't last and you didn't have money to get more. Never true 02/25/2024 PRAPARE - Transportation Answer Date Re corded In the past 12 months, has l ack of transportation kept you from medical appointments or from getting medications? No 01/31 In the past 12 months, has l ack of transportation kept you from meetings, work, or from getting things needed for daily living? No 02/25/2024 Depression Answer Date Recor ded PHQ-9 Total Score (max 27) 1 12/05 Nutrition Answer Date Recorded On average, how many serving s of fruits and vegetables do you eat per day (serving size is equal to 1 cup or approximately the size of a tennis ball)? 5 or more 02/25/2024 Dental Answer Date Recorded Dental: Regular Dentist Yes 07/02/19 Employment Answer Date Recorded Employment status Employed but not working due t o illness or injury 02/25/2024 Housing Stability Answer Date Recorded What is your living situation today? I have a [facility] place to live 02/25/2024 Education Answer Date Recorded What is the highest level of school you have completed or the highest degree you have received? Some college, no degree 06/13/2019 Comments No Sex and Gender Information Value Date Recorded Sex Assigned at Female 07/06/2019 10:15 AM RETAIL LEASING AGENT Legal Sex Female 8:01 AM RETAIL LEASING AGENT Gender Identity Female 07/06/2019 10:15 AM RETAIL LEASING AGENT Sexual Orientation Not on file documented as of this encounter Last Filed Vital Signs Vital Sign Reading Time Taken Comments Blood Pressure 150/89 06/13/2024 11:46 AM RETAIL LEASING AGENT Pulse 78 06/13/2024 11:46 AM RETAIL LEASING AGENT Temperature - - Respiratory Rate - - Oxygen Saturation - - Inhaled Oxygen Concentration - - Weight 53.8 kg (118 lb 9.6 oz) 06/13/2024 11:46 AM RETAIL LEASING AGENT Height 168.5 cm (5' 6.34) 06/13/2024 11:[address] Body Mass Index 18.95 06/13/2024 11:46 AM RETAIL LEASING AGENT documented in this encounter Consult Notes * Micaela Ellington APRN C.N.Crispin., M.S.N. - 06/13/2024 12:00 PM CST SUBJECTIVE REFERRING PROVIDER Sadaf Go APRN, C.Armond., M.S.N. REASON FOR VISIT Consult HISTORY OF PRESENT CONDITION Ms. Conn is a 49 y.o. who presents for gynecological evaluation and review of recent imaging. She is accompanied by her , Arvind. Her primary presenting complaint is low back pain and lower extremity pain with neuropathy symptomsas well as menstrual changes and ovarian cyst findings on recent imaging. She would like to review whether any of these things are related and if she should be pursuing treatment options apart from her spine and pain medicine providers. Her history and timeline of events were provided by the patient, her , and a thorough chart review. She reports regular menstrual cycles were occurring up until December 2022. She was evaluated in April 2023 for abdominal bloating and pain. Pelvic ultrasound at that time showed a 6-7 mm endometrial lining, a physiological cyst to the right ovary, and a unilocular cystic lesion to the left ovary. Patient recalls a very light spotting episode sometime that fall. (She recalls a retained tampon scenar io). She had 3 days bleeding in August 2023 and 11 days of bleeding in September or October 2023. She has had no bleeding since. Her FSH was checked in December and was 99. She has some vasomotor complaints that have waxed and waned over the past 12 months. She does have some difficulty falling asleep and staying asleep as well as some vaginal dryness complaints. She had an MRI for back pain in October 2023. There was mention of a 4 cm right ovarian cyst at that time. At [facility] in May 2024, pelvic US showed a 7 mm endometrial lining and no persistent ovarian cysts noted. CT scan showed evidence of pelvic congestion syndrome. Coinciding with this timeline, she began doctoring at [facility] for back pain and lower extremity symptoms in August 2023. She does recall that some of her back pain symptoms began before that time. She has since had numerous imaging studies, cortisone injections, and referrals related to her low back pain and activities of daily living impact. She has a Neurology consult next week in [place]. She describes the bulk of her symptoms as radiating through her pelvis and to her inner groin as well as radiating down her legs. HISTORY REVIEW The following portions of the patient's history were reviewed and updated as appropriate: allergies, current medications, family history, medical history, social history, surgical history and problemlist. 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 I found normal external pap smear results dated 07/20/2011 and 01/12/2016. She had normal pap at [facility] 12/05/2021. OBJECTIVE VITAL SIGNS Vitals: 06/13/24 1146 BP: 150/89 Patient Position: Sitting Pulse: 78 Height: 168.5 cm Weight: 53.8 kg PHYSICAL EXAM Constitutional General: She is not in acute distress. Appearance: Normal appearance. She is well-groomed. She is not ill-appearing. Genitourinary Normal external genitalia. Normal urethra, no masses. Normal introitus. Vaginal mucosa normal. Cervix exam normal. Pap smear screening collected. Well-supported anterior, apical, posterior, vaginal clement. Uterus is normal and smooth. No adnexal masses palpable. No pain with palpation of pelvic floor muscles. Rectum normal. Abdominal General: Abdomen is flat. Palpations: Abdomen is soft. Tenderness: There is no abdominal tenderness. There is no guarding or rebound. Neurological Mental Status: She is alert and oriented to person, place, and time. Psychiatric Mood and Affect: Mood normal. Speech: Speech normal. Behavior: Behavior normal. Behavior is cooperative. Cognition and Memory: Cognition normal. Javascript Ui Developer for pelvic exam or qualifying procedure: Cielo Lubin, C.M.A. Constitutional: Positive for night sweats. Gastrointestinal: Positive for abdominal (belly) pain or cramping and constipation. Genitourinary: Positive for menses change or abnormal. Musculoskeletal: Positive for back pain. Neurological: Positive for numbness or shooting pain in hands, arms, legs, or feet and loss of balance or tendency to fall easily. Psychiatric/Behavioral: Positive for sleep disturbance. DIAGNOSTICS CT Abdomen Pelvis with IV Contrast Narrative: EXAM: CT ABDOMEN PELVIS WITH IV CONTRAST COMPARISON: None FINDINGS: Lung bases: Centrilobular emphysematous changes, greatest in the bilateral apices. No acute airspace opacity is observed. Liver: Area of focal fatty infiltration along the fissure for ligamentum teres. No suspicious hepatic masses Gallbladder and Biliary Tree: No evidence of cholelithiasis. No biliary dilatation. Spleen: No focal lesion is identified. No evidence of splenomegaly. Pancreas: Normal enhancement. No focal lesion or ductal dilatation. Adrenal glands: No focal lesion identified. Kidneys, ureters, and bladder: Normal enhancement. No evidence of hydronephrosis or hydroureter. Nosuspicious mass lesion. No renal or ureteral calculi. GI tract: Normal appearing appendix in the right lower quadrant on image [id number] of series 3. No small bowel or colon obstruction or pneumatosis. Arcuate uterus demonstrated best on image 218 of series 3, unchanged. Prominent draining pelvic veins more so than was seen 05/11/2008. There is no free intraperitoneal air, free fluid, fluid collection, or abscess. Aortoiliac atherosclerotic changes are observed. Impression: 1. Normal appearing appendix. 2. No acute intra-abdominal/pelvic pathology. 3. Findings that can be consistent with pelvic congestion syndrome, in the correct clinical context Narrative & Impression EXAM: US PELVIS TRANSVAGINAL AND TRANSABDOMINAL COMPARISON: Pelvic MRI in 10/01/2023, pelvic ultrasound 04/10/2023. TECHNIQUE: Transabdominal and transvaginal. Transvaginal exam performed to better visualize the uterus and/or adnexal regions. FINDINGS: Uterus: 3.0 cm x 4.1 cm x 7.0 cm. Myometrium: Normal. Endometrium: A few endometrial echogenic foci/calcifications. Thickness: 7 mm Right ovary: Dominant 1.7 cm follicle. Ovarian volume: 6 ml. Left ovary: Normal. Ovarian volume: 2 ml. Intraperitoneal Fluid: None. IMPRESSION: 1. Endometrial thickening up to 7 mm, abnormal in a postmenopausal patient. Recommend gynecologic consultation for further evaluation. 2. A few endometrial echogenic foci/calcifications that are similar to 04/10/2023 and may be sequela of prior infection/instrumentation. 3. The ovaries are unremarkable. ASSESSMENT / PLAN #1 Perimenopause In review of her menstrual pattern, which was regular up until December 2022 and then irregularly occurring since then, I suspect late perimenopause over postmenopausal bleeding at this time. This is also in conjunction with evidence of physiological cyst formation on imaging in April 2023 and October 2023. Currently, her last menstrual bleed is considered October 2023. The endometrial lining on ultrasound is not of particular concern, but one way we can rule out abnormal tissue formation or presence of a polyp contributing to her bleeding is to perform a hysteroscopy. This would provide the greatestlevel of reassurance for a duration of time, so that she isn't left worrying if she does have spotti ng again in the near future. She would like to proceed with that, but requests a referral to [place] for this. She understands she may need to meet with the gynecology team there first before beingoffered a procedure. We reviewed perimenopausal and menopausal symptom management options. She is not interested in hormone replacement therapy at this time, but we did introduce the topic if her symptoms are increasingly bothersome to her and after completing her uterine assessment. We reviewed sexual intimacy drynessand OTC products to trial, including lubricants and vaginal moisturizers. She is welcome to return for further conversation on any of this at a future date. #2 Pelvic Congestion Syndrome Her primary complaint is the lower back, pelvic, and extremity discomfort she is experiencing. I donot think that pelvic congestion syndrome would be the root cause of all of it, but I cannot rule out a contributing factor for the pelvic pressure and achiness she is feeling at times. She was interested in referral to Interventional Radiology for further consultation on this topic. Again, she would prefer [place] location for this referral. #3 Pap Smear Examination Pap smear obtained during pelvic exam today as precaution. If normal, recommend co-testing every 3 years until 2035 based on her reported history of cone biopsy procedure. BILLING Total time: 60 minutes Greater than 50% of the time spent counseling. Micaela Ellington APRN, C.N.P., M.S.N. [place] LE[place]ING AG[place] documented in this encounter Plan of Treatment Upcoming Encounters Date Type Department Care Team (Latest Contact Info) Description 07/30/2024 8:45 AM RETAIL LEASING AGENT Appointment Department of Radiology, [facility], in [place], [place] [address] [place] [address] Micaela Ellington APRN, C.N.P., M.S.N. [address] [place] [address] 07/30/2024 10:00 AM RETAIL LEASING AGENT Procedure visit Department of Obstetrics and Gynecology in [place], [place] [address] [place] [address] Micaela Ellington APRN, C.N.P., M.S.N. [address] [place] [address] Yaneth Edgar M.D. [address] [place] [address] Discharge Disposition: Home or Self Care 07/30/2024 12:45 PM RETAIL LEASING AGENT Comprehensive Visit Division of Vascular and Endovascular Surgery in [place], [place] [address] [place] [address] Joselo Horton M.D. [address] [place] [address] Scheduled Referrals Name Type Priority Associated Diagnoses Order Schedule Interventional Radiology - General consult (clinic) Outpatient Referral Routine Pelvic Congestion Syndrome Expected: 06/13/2024, Expires: 09/11/2025 Obstetrics and Gynecology - Gynecology consult (clinic) Outpatient Referral Routine Perimenopause Expected: 06/13/2024 (Approximate), Expires: 09/11/2025 documented as of this encounter Procedures Procedure Name Priority Date/Time Associated Diagnosis Comments THINPREP W/HPV CO-TEST SCREEN Routine 06/13/2024 1:04 PM RETAIL LEASING AGENT Pap Smear Examination HPV WITH GENOTYPING, PCR, THINPREP Routine 06/13/2024 1:04 PM RETAIL LEASING AGENT documented in this encounter Results * HPV with Genotyping, PCR, ThinPrep (06/13/2024 1:04 PM RETAIL LEASING AGENT) Pathologist [facility] HPV with Genotyping, ThinPrep, PCR Negative Negative 06/16/2024 2:47 PM RETAIL LEASING AGENT MK[facility] Comment: Negative for high risk HPV by nucleic acid amplification. The following high risk HPV types were not detected: 16, 18, 31, 33, 35, 39, 45, 51, 52, 56, 58, 59, 66, and 68 This result does not rule out HPV in the patient, as the sensitivity of the test depends on the timing of the specimen collection and the quality of the specimen. Result should be correlated with patient's history, clinical presentation, and FREIGHT MANAGER cytology report. 06/13/2024 1:04 PM RETAIL LEASING AGENT 06/16/2024 7:38 AM RETAIL LEASING AGENT us Tad Manning APRNNDago., M.S.N. LAB MICROBIOLOGY - GENERAL ORDERABLES Final Result [facility] [address] [place] [address] [facility] [place] [address] * ThinPrep w/HPV Co-Test Screen (06/13/2024 1:04 PM RETAIL LEASING AGENT) Pathologist [facility] 06/18/2024 1:07 PM RETAIL LEASING AGENT [facility] Report electronically signed by ANNY Monzon (ASCP) I verify that I have examined all relevant slides/materials for the specimen(s) and rendered or confirmed the diagnosis. 06/18/2024 1:07 PM RETAIL LEASING AGENT [facility] Gross Description Received specimen in a ThinPrep vial. 06/18/2024 1:07 PM RETAIL LEASING AGENT [facility] Pap Test Source Cervical/Endocervi noy 06/18/2024 1:07 PM RETAIL LEASING AGENT [facility] Hormone Therapy/Contracep tives None/Not known 06/18/2024 1:07 PM RETAIL LEASING AGENT [facility] Interpretation Cervical/Endocervi noy (ThinPrep): Satisfactory for Evaluation Negative for Intraepithelial Lesion or Malignancy High Risk HPV: Negative Negative for High Risk HPV by nucleic acid amplification. The following High Risk HPV types were not detected: 16, 18, 31, 33, 35, 39, 45, 51, 52, 56, 58, 59, 66, and 68. 06/18/2024 1:07 PM RETAIL LEASING AGENT [facility] Thin Prep Vial (Cervix/Endocerv ix) 06/13/2024 1:04 PM RETAIL LEASING AGENT 06/16/2024 7:38 AM RETAIL LEASING AGENT us Elia Manning APRN.Crispin., M.S.N. LAB PAP PATH DX ORDERABLES Final Result [facility] [address] [place] [address], [facility] [address] [address] documented in this encounter Visit Diagnoses Diagnosis Perimenopause- Primary Pelvic Congestion Syndrome Pap Smear Examination documented in this encounter Additional Health Concerns Assessment Noted Time PHQ-9 Depression Total Score: 1 12/06/19 22 3:26 PM CDT documented as of this encounter Care Teams Naturopathic Doctor Relationship Specialty Start Date End Date Sadaf Go APRN, C.N.P., M.S.N. [address] [place] [address] PCP - General Family Medicine 08/08/19 documented as of this encounter
--- OUTSIDE RECORDS SUMMARY | 2024-07-27 14:27 | XMS_ITS | Encounter Summary ---
Author Organization [facility] Address [address] [place] [address] Care Team Providers Care [employer] Senior Officer Name Role Phone Sadaf Go APRN C.N.Lanre, M.S.N. Primary Care Provider Encounter Details Date Type Department Care Team (Late st Contact Info) Description 07/16/2024 12:10 PM SKI TOPPER - 07/16/2024 11:59 PM [facility] Hospital Encounter Department of Laboratory Medicine and Pathology, [facility] in [place], [place] [address] [place] [phone] Servando Garcias M.D. [address] [place] [phone] Paresthesia Discharge Disposition: Home or Self Care Social History Tobacco Use Types Packs/Day Years Used Date Smoking Tobacco: Every Day Cigarettes 1 25 Smokeless Tobacco: Never Alcohol Use Standard Drinks/Week Comments Yes 2 (1 standard drink = 0.6 oz pur e alcohol) [facility] Utilities Answer Date Recorded In the past 12 months has e [employer], gas, oil, or water [employer] threatened to shut off services in your [...] often do you attend chur ch or tenriism services? Never 05/13/2021 Do you belong to any clubs o r organizations such as judaism groups, unions, fraternal or athletic groups, or [...] Answer Date Recorded PHQ-2 Score 0 09/07/2023 [facility] [place] of Occupat ional Health - Occupational Stress [...] your living situation today? I have a [facility] place to live 02/25/2024 Education Answer Date Recorded What is the highest level of school you have completed or the highest degree you have received? Some college, no degree 06/13/2019 Comments No Sex and Gender Information Value Date Recorded Sex Assigned at Female 07/06/2019 10:15 AM SKI TOPPER Legal Sex Female 8:01 AM SKI TOPPER Gender Identity Female 07/06/2019 10:15 AM SKI TOPPER Sexual Orientation Not on file documented as of this encounter Medications at Time of Discharge bisacodyL (Dulcolax) 5 mg EC tablet Take 2 tablets (10mg) by mouth 2 days before and the day before the procedure in the morning 4 tablet 05/26/2024 magnesium 200 mg tablet Take 330 mg by mouth daily before morning meal. multivitamin tablet Take 1 tablet by mouth daily. polyethylene glycol (Miralax) 17 gram/dose oral powder Mix 1 heaping tablespoon of MiraLAX into 4 to 8 oz of clear beverage and drink daily starting 5 to 7 days prior to procedure through the day before the procedure. 238 g 05/26/2024 polyethylene glycol-electroly porfirio (Golytely) 236-22.74-6.74 -5.86 gram solution Take first portion of the prep at 4pm the evening before and start second portion 3 to 6 hours before and finish 2 hours prior to report time. 4000 mL 05/26/2024 UNABLE TO FIND Med Name: THC oil. 0.25 ml prn documented as of this encounter Plan of Treatment Upcoming Encounters Date Type Department Care Team (Latest Contact Info) Description 07/30/2024 8:45 AM SKI TOPPER Appointment Department of Radiology, [facility], in [place], [place] [address] [place] [phone] Micaela Ellington APRN, C.N.P., M.S.N. [address] [place] [phone] 07/30/2024 10:00 AM SKI TOPPER Procedure visit Department of Obstetrics and Gynecology in [place], [place] [address] [place] [phone] Micaela Ellington APRN, C.N.P., M.S.N. [address] [place] [phone] Yaneth Edgar M.D. [address] [place] [phone] Discharge Disposition: Home or Self Care 07/30/2024 12:45 PM SKI TOPPER Comprehensive Visit Division of Vascular and Endovascular Surgery in [place], [place] [address] [place] [phone] Joselo Horton M.D. [address] [place] [phone] documented as of this encounter Procedures Procedure Name Priority Date/Time Associated Diagnosis Comments AXONAL, AUTOIMM/PARANEO, SERUM Routine 07/16/2024 12:21 PM SKI TOPPER Paresthesia documented in this encounter Results * Axonal Neuropathy, Autoimmune/Paraneoplastic Evaluation (07/16/2024 12:21 PM SKI TOPPER) Autoimmune Axonal Interp, S see below 07/23/2024 9:07 AM SKI TOPPER DTL Comment: No informative autoantibodies were detected in this evaluation. However, a negative result does not exclude an autoimmune neuropathy. IFA Notes None. 07/23/2024 9:07 AM SKI TOPPER DTL Amphiphysin Ab, S Negative Negative 025 9:07 AM SKI TOPPER DTL Comment: ----ADDITIONAL INFORMATION---- This test was developed and its performance characteristics determined by [facility] in a manner consistent with CLIA requirements. This test has not been cleared or approved by the U.S. Food and Drug Administration. ISRAEL-1, S Negative Negative 07/23/2024 9:07 AM SKI TOPPER DTL Comment: ----ADDITIONAL INFORMATION---- This test was developed and its performance characteristics determined by [facility] in a manner consistent with CLIA requirements. This test has not been cleared or approved by the U.S. Food and Drug Administration. ISRAEL-3, S Negative Negative 07/23/2024 9:07 AM SKI TOPPER DTL Comment: ----ADDITIONAL INFORMATION---- This test was developed and its performance characteristics determined by [facility] in a manner consistent with CLIA requirements. This test has not been cleared or approved by the U.S. Food and Drug Administration. AGNA-1, S Negative Negative 07/23/2024 9:07 AM SKI TOPPER DTL Comment: ----ADDITIONAL INFORMATION---- This test was developed and its performance characteristics determined by [facility] in a manner consistent with CLIA requirements. This test has not been cleared or approved by the U.S. Food and Drug Administration. AP3B2 IFA, S Negative Negative 07/23/2024 9:07 AM SKI TOPPER DTL Comment: ----ADDITIONAL INFORMATION---- This test was developed and its performance characteristics determined by [facility] in a manner consistent with CLIA requirements. This test has not been cleared or approved by the U.S. Food and Drug Administration. CASPR2-IgG CBA, S Negative Negative 025 9:07 AM SKI TOPPER DTL Comment: ----ADDITIONAL INFORMATION---- This test was developed and its performance characteristics determined by [facility] in a manner consistent with CLIA requirements. This test has not been cleared or approved by the U.S. Food and Drug Administration. CRMP-5-IgG Western Blot, S Negative Negative 07/23/2024 9:07 AM SKI TOPPER DTL Comment: ----ADDITIONAL INFORMATION---- This test was developed and its performance characteristics determined by [facility] in a manner consistent with CLIA requirements. This test has not been cleared or approved by the U.S. Food and Drug Administration. GFAP IFA, S Negative Negative 07/23/2024 9:07 AM SKI TOPPER DTL Comment: ----ADDITIONAL INFORMATION---- This test was developed and its performance characteristics determined by [facility] in a manner consistent with CLIA requirements. This test has not been cleared or approved by the U.S. Food and Drug Administration. IgLON5 CBA, S Negative Negative 07/23/2024 9:07 AM SKI TOPPER DTL Comment: ----ADDITIONAL INFORMATION---- This test was developed and its performance characteristics determined by [facility] in a manner consistent with CLIA requirements. This test has not been cleared or approved by the U.S. Food and Drug Administration. LGI1-IgG CBA, S Negative Negative 5 9:07 AM SKI TOPPER DTL Comment: ----ADDITIONAL INFORMATION---- This test was developed and its performance characteristics determined by [facility] in a manner consistent with CLIA requirements. This test has not been cleared or approved by the U.S. Food and Drug Administration. NIF IFA, S Negative Negative 07/23/2024 9:07 AM SKI TOPPER DTL Comment: ----ADDITIONAL INFORMATION---- This test was developed and its performance characteristics determined by [facility] in a manner consistent with CLIA requirements. This test has not been cleared or approved by the U.S. Food and Drug Administration. STOCK FEEDER-1, S Negative Negative 07/23/2024 9:07 AM SKI TOPPER DTL Comment: ----ADDITIONAL INFORMATION---- This test was developed and its performance characteristics determined by [facility] in a manner consistent with CLIA requirements. This test has not been cleared or approved by the U.S. Food and Drug Administration. STOCK FEEDER-2, S Negative Negative 07/23/2024 9:07 AM SKI TOPPER DTL Comment: ----ADDITIONAL INFORMATION---- This test was developed and its performance characteristics determined by [facility] in a manner consistent with CLIA requirements. This test has not been cleared or approved by the U.S. Food and Drug Administration. Blood (Blood, Venous) 07/16/2024 12:21 PM SKI TOPPER 07/16/2024 1:58 PM SKI TOPPER us Servando Garcias M.D. LAB BLOOD NON ADD-ON Fi nal Result [facility] [address] [place] [address], [facility] [address] [place] [address] documented in this encounter Visit Diagnoses Diagnosis Paresthesia documented in this encounter Additional Health Concerns Assessment Noted Time PHQ-9 Depression Total Score: 1 12/06/19 22 3:26 PM CDT documented as of this encounter Care Teams [employer] Senior Officer Relationship Specialty Start Date End Date Sadaf Go APRN, C.N.P., M.S.N. [address] [place] [phone] PCP - General Family Medicine 08/08/19 documented as of this encounter
--- OUTSIDE RECORDS SUMMARY | 2024-07-27 14:27 | XMS_ITS | Encounter Summary ---
Author Organization [facility] Address [address] [place] [address] Care Team Providers Care Academic Administrator Name Role Phone Sadaf Go APRN, C.N.P., M.S.N. Primary Care Provider Reason for Referral * MRI/CAT/PET Scan (Routine) - Authorized Specialty Diagnoses / Procedures Referred By Contac t Referred To Contact Radiology Diagnoses Pelvic Congestion Syndrome Procedures CT Abdomen Pelvis Venogram with IV Contrast Micaela Ellington APRN, C.N.P., M.S.N. 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 [address] [place] [phone] Social History Tobacco Use Types Packs/Day Years Used Date Smoking Tobacco: Every Day Cigarettes 1 25 Smokeless Tobacco: Never Alcohol Use Standard Drinks/Week Comments Yes 2 (1 standard drink = 0.6 oz pur e alcohol) [facility] Utilities Answer Date Recorded In the past 12 months has th e electric, gas, oil, or water company threatened to shut off services in your [...] or neighbors? Three times a week 05/13/20 21 How often do you get togethe r with friends or relatives? Once a week 05/13/2021 How often do you attend chur ch or cheondoism services? Never 05/13/2021 Do you belong to any clubs o r organizations such as yazdanism groups, unions, fraternal or athletic groups, or [...] Answer Date Recorded PHQ-2 Score 0 09/07/2023 [facility] of Occupat ional Health - Occupational Stress [...] your living situation today? I have a [facility] place to live 02/25/2024 Education Answer Date Recorded What is the highest level of school you have completed or the highest degree you have received? 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 [address] [place] [phone] 07/30/2024 10:00 AM UPSETTING MACHINE OPERATOR Procedure visit Department of Obstetrics and Gynecology in [place], [place] [address] [place] [phone] Micaela Ellington APRN, C.N.P., M.S.N. [address] [place] [phone] Yaneth Edgar M.D. [address] [place] [phone] Discharge Disposition: Home or Self Care 07/30/2024 12:45 PM UPSETTING MACHINE OPERATOR Comprehensive Visit Division of Vascular and Endovascular Surgery in [place], [place] [address] [place] [phone] Joselo Horton M.D. [address] [place] [phone] Scheduled Orders Name Type Priority Associated Diagnoses Orde r Schedule CT Abdomen Pelvis Venogram with IV Contrast Imaging RAD - Routine (most inpatients and all outpatients) Pelvic Congestion Syndrome Expected: 07/30/2024, Expires: 09/14/2025 documented as of this encounter Visit Diagnoses Diagnosis Pelvic Congestion Syndrome- Primary documented in this encounter Additional Health Concerns Assessment Noted Time PHQ-9 Depression Total Score: 1 12/06/19 22 3:26 PM CDT documented as of this encounter Care Teams Academic Administrator Relationship Specialty Start Date End Date Sadaf Go APRN, C.N.P., M.S.N. [address] [place] [phone] PCP - General Family Medicine 08/08/19 documented as of this encounter
--- OUTSIDE RECORDS SUMMARY | 2024-07-27 14:27 | XMS_ITS | Encounter Summary ---
Author Organization [facility] Address [address] [place] [id number] Care Team Providers Care Project Buyer Name Role Phone Sadaf Go APRN C.NNadeem, M.S.N. Primary Care Provider Reason for Visit * Outpatient (Routine) - Closed Specialty Diagnoses / Procedures Referred By Yvette zhang Referred To Contact Neurology Diagnoses Neuropathy Peripheral Kenyon Mathis M.D. [address] [place] [phone] Phone: tel: fax: [facility] Referral ID Status Reason Start Date Expiration Date Visits Re quested Visits Authorized [id number] Closed 05/16/2024 11/15/2025 1 1 Encounter Details Date Type Department Care Team ([facility] st Contact Info) Description 07/16/2024 10:00 AM REAL ESTATE OFFICER Comprehensive Visit Department of Neurology in [place], [place] [address] [place] [phone] Servando Garcias M.D. [address] [place] [phone] Paresthesia (Primary Dx); Neuropathy Peripheral Social History Tobacco Use Types Packs/Day Years Used Date Smoking Tobacco: Every Day Cigarettes 1 25 Smokeless Tobacco: Never Alcohol Use Standard Drinks/Week Comments Yes 2 (1 standard drink = 0.6 oz pur e alcohol) [facility] Utilities Answer Date Recorded In the past 12 months has [employer] electric, gas, oil, or water company threatened [...] 05/13/2021 How often do you attend chur or cheondoism services? Never 05/13/2021 Do you belong to any clubs o r organizations such as faith groups, unions, fraternal or athletic groups, or [...] Answer Date Recorded PHQ-2 Score 0 09/07/2023 [facility] - Occupational Stress [...] Date Recorded Dental: Regular Dentist Yes 07/02/19 23 Employment Answer Date Recorded Employment status Employed but not working due t o illness or injury 02/25/2024 Housing Stability Answer Date Recorded What is your living situation today? I have a [facility] place to live 02/25/2024 Education Answer Date Recorded What is the highest level of school you have completed or the highest degree you have received? Some college, no degree 06/13/2019 Comments No Sex and Gender Information Value Date Recorded Sex Assigned at Female 07/06/2019 10:15 AM REAL ESTATE OFFICER Legal Sex Female 8:01 AM REAL ESTATE OFFICER Gender Identity Female 07/06/2019 10:15 AM REAL ESTATE OFFICER Sexual Orientation Not on file documented as of this encounter Last Filed Vital Signs Vital Sign Reading Time Taken Comments Blood Pressure - - Pulse - - Temperature - - Respiratory Rate - - Oxygen Saturation - - Inhaled Oxygen Concentration - - Weight 54.2 kg (119 lb 7.8 oz) 07/16/2024 10:06 AM REAL ESTATE OFFICER Height 171.2 cm (5' 7.4) 07/16/2024 10:06 AM CS T Body Mass Index 18.49 07/16/2024 10:06 AM REAL ESTATE OFFICER documented in this encounter Consult Notes * Servando Garcias M.D. - 07/16/2024 10:00 AM CST Supervisory note for Dr. Campos. Whereas to review for possible neuropathy in Mrs. Conn. She outlines pain problem beginning in March of last year after a tattoo was placed on her right wrist. She had shock-like pains in the bilateral buttock posterior thigh. Return of pain in her left ankle prior injury site, and weight loss. She has been using low intensity pulsed electromagnetic field with the device from [employer], which tends to help her symptoms. She finds her symptoms worse at night. Review of systems she has lost weight. I see in old notes her BMI was as high as 21 currently 19. Her testing has been thoughtful she underwent an EMG that showed a fairly normal study apart from slightly larger motor units performed by the resident. Spine imaging has not been revealing as to cause. She underwent Thera path skin punch biopsy which was remarkably normal at all sites. He had thermoregulatory sweat test and autonomic reflex screen which are both normal. Impression #1 Myofascial pain disorder not otherwise specified no evidence for neuropathy I think in such condition staying active is important in returning to work at the would be good forher at a limited capacity. With a big problem she has a sitting for any period of time in between jobs on the way in the car. She can continue to work with physical therapy. Because of the weight loss we will order a paraneoplastic eval for axonal neuropathy which can sometimes be hyperexcitable inform without loss of fibers. ESTATE OFFICER * Ronak Campos M.D. - 07/16/2024 10:00 AM CST Images from the original note were not included. Referring provider Katty Delacruz.* CHIEF COMPLAINT / REASON FOR VISIT Mya Conn is a 49 y.o. female who presents for evaluation of possible small fiber neuropathy. HISTORY OF PRESENT ILLNESS In July of 2023, she began having bilateral low back pain radiating into her buttocks, posteriorthighs and calves, and feet. Symptoms were worse sitting. In September, she received in L4-5 injection which made symptoms worse and seemed to correlate with the onset of bilateral foot numbness and coolness, which was worse in the cold. She occasionally has reddish discoloration of her feet. She also describes diffuse body pain in her ankles, thighs, hips, neck, and shoulders. She has received multiple sacroiliac injections and short oral steroid courses which have been ineffective. Autonomic reflex screen and thermoregulatory sweat test here were normal. EMG was overall normal and suggested possible L5-S1 radiculopathies but did not show neuropathy. Lumbar spine MRI showed milddegenerative changes but no critical areas of stenosis. Epidermal nerve fiber density (Therapath) was normal. Sweat gland nerve fiber density was reduced in the left thigh, which prompted her physicians to consider small fiber neuropathy. She has found the Bemer device to be very helpful for her pain symptoms. I reviewed outside records for this visit. She has had extensive lab evaluation for causes of neuropathy including Sjogren's antibodies, A1c, RF, monoclonal protein study, and inflammatory markers which have all been normal. I directly reviewed imaging studies for this visit. PAST MEDICAL SURGICAL HISTORY #1 Neuropathy Peripheral #2 Paresthesia #3 Other Specified Anxiety Disorders #4 Pain Back #5 Livedo Reticularis #6 Tobacco Use REVIEW OF SYSTEMS: She has had weight loss and dry mouth. CURRENT MEDICATIONS: Current Outpatient Medications: bisacodyL (Dulcolax) 5 mg EC tablet, Take 2 tablets (10mg) by mouth 2 days before and the day before the procedure in the morning (Patient not taking: Reported on 06/13/2024), Disp: 4 tablet, Rfl: 0 magnesium 200 mg tablet, Take 330 mg by mouth daily before morning meal., Disp: , Rfl: multivitamin tablet, Take 1 tablet by mouth daily., Disp: , Rfl: polyethylene glycol (Miralax) 17 gram/dose oral powder, Mix 1 heaping tablespoon of MiraLAX into 4 to 8 oz of clear beverage and drink daily starting 5 to 7 days prior to procedure through the day before the procedure. (Patient not taking: Reported on 06/13/2024), Disp: 238 g, Rfl: 0 polyethylene glycol-electrolytes (Golytely) 236-22.74-6.74 -5.86 gram solution, Take first portion of the prep at 4pm the evening before and start second portion 3 to 6 hours before and finish 2 hours prior to report time. (Patient not taking: Reported on 06/13/2024), Disp: 4000 mL, Rfl: 0 UNABLE TO FIND, Med Name: THC oil. 0.25 ml prn (Patient not taking: Reported on 06/13/2024), Disp: , Rfl: ALLERGIES: Allergies Allergen Reactions Levofloxacin Nausea And Vomiting Levaquin SOCIAL HISTORY: Social History Socioeconomic History Marital status: Highest education level: Some college, no degree Tobacco Use Smoking status: Every Day Current packs/day: 1.00 Average packs/day: 1 pack/day for 25.0 years (25.0 ttl pk-yrs) Types: Cigarettes Smokeless tobacco: Never Vaping Use Vaping status: current some days use Substances: Nicotine Devices: Pre-filled pod Substance and Sexual Activity Alcohol use: Yes Alcohol/week: 2.0 standard drinks of alcohol Types: 2 Standard drinks or equivalent per week Drug use: Yes Comment: Cannabis patches, edibles, smoked. Sexual activity: Yes Partners: Male control/protection: Post-menopausal, Vasectomy Comment: with vasectomy Social Drivers of Health Food Insecurity: No Food Insecurity (02/25/2024) Hunger Vital Sign Worried About Running Out of Food in the Last Year: Never true Ran Out of Food in the Last Year: Never true Transportation Needs: No Transportation Needs (02/25/2024) PRAPARE - Transportation Lack of Transportation (Medical): No Lack of Transportation (Non-Medical): No Physical Activity: Sufficiently Active (02/25/2024) Exercise Vital Sign Days of Exercise per Week: 6 days Minutes of Exercise per Session: 150+ min Intimate Partner Violence: Not At Risk (02/20/2023) Humiliation, Afraid, Rape, and Kick questionnaire Fear of Current or Ex-Partner: No Emotionally Abused: No Physically Abused: No Sexually Abused: No Housing Stability: Low Risk (02/25/2024) Housing Stability Housing: Living Situation: I have a steady place to live FAMILY HISTORY Family History Problem Relation Name Age of Onset Hypertension Mother Vilma Thyroid disease Mother Vilma Dementia Mother Vilma Coronary artery disease Mother Vilma triple bypass Hyperlipidemia Mother Vilma Anxiety disorder Mother Vilma Arthritis Mother Vilma Bipolar Mother Vilma Osteoporosis Mother Vilma Psychiatric Mother Vilma Vasculitis Mother Vilma purpura vascular disease many vascular issues legs look similar to Mya pain in feet Kidney disease Mother Vilma 60 stage 3 Depression Mother Vilma Lung cancer Mother Vilma 73 radiation Aortic stenosis Father Don Kidney disease Father Don stage 3 Clotting disorder Father Don Hypertension Father Don Stroke Father Don 2019 after knee surgery stroke, 60 Arthritis Father Don Transient ischemic attack Father Don Other (anthro scolastic disease) Father Don d. Heart attack Maternal Grandmother Aidee 55. 57 Lung cancer Maternal Grandmother Aidee d. 2x Heart attack Maternal Grandfather d. Blood clot Paternal Grandmother Yamile in lungs and legs Arthritis Paternal Grandmother Yamile in spine Diabetes Paternal Grandmother Yamile Stroke Paternal Grandmother Yamile 80 - 89 Transient ischemic attack Paternal Grandmother Yamile Migraines Paternal Grandfather Ankush Intestinal cancer Paternal Grandfather Ankush smoker Stroke Paternal Grandfather Ankush 80 - 89 Transient ischemic attack Paternal Grandfather Ankush ADD Son Tristian Anxiety depression Son Tristian ADD / ADHD Son Mable Anxiety disorder Son Mable PTSD Son Mable milirary service Anxiety disorder Son Treyton ADD / ADHD Son Treyton GI problems Son Treyton Single kidney Brother Vladimir found this out at 21 Skin cancer Brother Vladimir non-melanoma ADD / ADHD Grandson ADD / ADHD Nephew Heart attack Mother's Sister 76 Other (emergency hysterectomy) Mother's Sister Alcohol abuse Mother's Sister Autoimmune disorder Mother's Sister Autoimmune Father's Sister unsure of details Other (genetic testing) Maternal Cousin Cockayne syndrome Other (genetic testing) Maternal Cousin negative for cockayne syndrome VITALS & BMI: Ht 171.2 cm Wt 54.2 kg LMP 11/17/2021 BMI 18.49 kg/m?? Body mass index is 18.49 kg/m??. PHYSICAL EXAM Ht 171.2 cm Wt 54.2 kg LMP 11/17/2021 BMI 18.49 kg/m?? I have reviewed vital signs as recorded in the EPIC record. NEUROMUSCULAR NEUROLOGICAL EXAMINATION Neurology Scorecard Lower limb assessment Gait: Normal Walk on heels: Able Walk on toes: Able Arise from chair: Able Foot/Ankle deformities: Absent Associated conditions Speech/Language: Normal Cognition: Normal Tremor: Absent Myoclonus: Absent Limb ataxia: Absent Joint abnormalities: Absent Facial dysmorphism: Absent Scoring, muscle weakness (* NIS) The Neuropathy Impairment Scoring System (NIS) strength: 0=normal; 1=25% weak (MRC equivalent= 5-);2=50% weak (MRC equivalent 4+); 3=75% weak (MRC equivalent 4-); 3.25%=movement against gravity (MRCequivalent 3); 3.5=movement, gravity eliminated (MRC equivalent 2); 3.75; flicker of movement (MRC equivalent 1) 4=complete paralysis (MRC equivalent 0). Right Left Deficit Deficit Visual Acuity normal Fundus normal 0 Pupil light reflex 0 0 Hearing loss 0 Right Cranial Left Strength Strength 0 * 3rd nerve 0 0 4th nerve 0 0 * 6th nerve 0 0 * Facial weakness 0 Temporal-[place] Forehead Orbicularis Oculi Orbicularis Mary * Palate weakness Sternocleidomastoid Trapezius * Tongue weakness Right Cervical Left Strength Strength * Neck flexion Neck extension Infraspinatus Supraspinatus Pectoralis 0 * Deltoid 0 0 * Elbow flexion 0 * Brachioradialis 0 * Elbow extension 0 0 * Wrist extension 0 0 * Wrist flexion 0 Supinator Pronator 0 Finger extension 0 0 * Finger flexion 0 0 * Thumb abduction 0 0 Thumb flexion 0 0 * Finger spread 0 0 Hypothenar 0 Abdominal muscles * Respiratory Right Lumbosacral Left Strength Strength 0 * Hip flexion 0 0 * Hip extension 0 Hip internal rotation 0 Hip adduction 0 0 Hip abduction 0 0 * Knee extension 0 0 * Knee flexion 0 0 * Ankle dorsiflexors 0 0 * Ankle plantar flexors 0 0 * Toe extensors 0 0 * Toe flexors 0 0 Extensor hallucis 0 0 Ankle evertors 0 0 Ankle invertors 0 Scoring, reflexes (* NIS) NIS (Normal= 0 or above 0; Reduced= -1 to -3; Absent=-4) Right Reflexes Left 0 * Biceps brachii 0 0 * Brachioradialis 0 0 * Triceps brachii 0 0 Albert 0 0 * Quadriceps femoris 0 0 * Gastroc. soleus 0 0 Clonus 0 0 Plantar response 0 Scoring, sensation (* NIS) NIS (Normal= 0 or above 0; Reduced= -1 to -3; Absent=-4) Right Sensation - Index finger Left 0 * Touch-pressure 0 0 * Pin-prick 0 0 Heat-pain 0 0 Cold-sensation 0 0 * Vibration 0 0 * Joint position 0 Right Sensation - Great Toe Left 0 * Touch-pressure 0 0 * Pin-prick 0 0 Heat-pain 0 0 Cold-sensation 0 0 * Vibration 0 0 * Joint position 0 SUMMED SCORES (0 is normal) Strength (Range) Reflex (Range) Sensation (Range) Total Score (Range) Total Scores 0 (0-376) 0 (0-64) 0 (0-96) 0 (0-536) Musculoskeletal: Tender to palpation of ankles, posterior neck, shoulders, hips. IMPRESSION #1 Whole-body pain, suspect myofascial #2 Weight loss #3 Anxiety PLAN and RECOMMENDATIONS The patient has no clinical or physiologic evidence for a small fiber neuropathy. We reassured the patient that overall her clinical presentation is not concerning for a sinister etiology, though we will order a paraneoplastic axonal neuropathy evaluation given her weight loss. We recommended continued physical activity with exercise, work, and physical therapy if she finds it helpful. Orders Placed This Encounter Procedures Axonal Neuropathy, Autoimmune/Paraneoplastic Evaluation PATIENT EDUCATION Ready to learn, no apparent learning barriers were identified; learning preferences include listening. Explained diagnosis and treatment plan; patient expressed understanding of the content. Electronically signed by: Ronak Campos M.D. 07/16/24 12:17 PM REAL ESTATE OFFICER ESTATE OFFICER documented in this encounter Plan of Treatment Upcoming Encounters Date Type Department Care Team (Latest Contact Info) Description 07/30/2024 8:45 AM REAL ESTATE OFFICER Appointment Department of Radiology, [facility], in [place], [place] [address] [place] [phone] Micaela Ellington APRN, C.N.P., M.S.N. [address] [place] [phone] 07/30/2024 10:00 AM REAL ESTATE OFFICER Procedure visit Department of Obstetrics and Gynecology in [place], [place] [address] [place] [phone] Micaela Ellington, KAY, C.N.P., M.S.N. [address] [place] [phone] Yaneth Edgar M.D. [address] [place] [phone] Discharge Disposition: Home or Self Care 07/30/2024 12:45 PM REAL ESTATE OFFICER Comprehensive Visit Division of Vascular and Endovascular Surgery in [place], [place] [address] [place] [phone] Joselo Horton M.D. [address] [place] [phone] documented as of this encounter Results * Axonal Neuropathy, Autoimmune/Paraneoplastic Evaluation (07/16/2024 12:21 PM REAL ESTATE OFFICER) Autoimmune Axonal Interp, S see below 07/23/2024 9:07 AM REAL ESTATE OFFICER DTL Comment: No informative autoantibodies were detected in this evaluation. However, a negative result does not exclude an autoimmune neuropathy. IFA Notes None. 07/23/2024 9:07 AM REAL ESTATE OFFICER DTL Amphiphysin Ab, S Negative Negative 025 9:07 AM REAL ESTATE OFFICER DTL Comment: ----ADDITIONAL INFORMATION---- This test was developed and its performance characteristics determined by [facility] in a manner consistent with CLIA requirements. This test has not been cleared or approved by the U.S. Food and Drug Administration. ISRAEL-1, S Negative Negative 07/23/2024 9:07 AM REAL ESTATE OFFICER DTL Comment: ----ADDITIONAL INFORMATION---- This test was developed and its performance characteristics determined by [facility] in a manner consistent with CLIA requirements. This test has not been cleared or approved by the U.S. Food and Drug Administration. ISRAEL-3, S Negative Negative 07/23/2024 9:07 AM REAL ESTATE OFFICER DTL Comment: ----ADDITIONAL INFORMATION---- This test was developed and its performance characteristics determined by [facility] in a manner consistent with CLIA requirements. This test has not been cleared or approved by the U.S. Food and Drug Administration. AGNA-1, S Negative Negative 07/23/2024 9:07 AM REAL ESTATE OFFICER DTL Comment: ----ADDITIONAL INFORMATION---- This test was developed and its performance characteristics determined by [facility] in a manner consistent with CLIA requirements. This test has not been cleared or approved by the U.S. Food and Drug Administration. AP3B2 IFA, S Negative Negative 07/23/2024 9:07 AM REAL ESTATE OFFICER DTL Comment: ----ADDITIONAL INFORMATION---- This test was developed and its performance characteristics determined by [facility] in a manner consistent with CLIA requirements. This test has not been cleared or approved by the U.S. Food and Drug Administration. [id number]-IgG CBA, S Negative Negative 9:07 AM REAL ESTATE OFFICER DTL Comment: ----ADDITIONAL INFORMATION---- This test was developed and its performance characteristics determined by [facility] in a manner consistent with CLIA requirements. This test has not been cleared or approved by the U.S. Food and Drug Administration. [id number]-[id number] Western Blot, S Negative Negative 07/23/2024 9:07 AM REAL ESTATE OFFICER DTL Comment: ----ADDITIONAL INFORMATION---- This test was developed and its performance characteristics determined by [facility] in a manner consistent with CLIA requirements. This test has not been cleared or approved by the U.S. Food and Drug Administration. GFAP IFA, S Negative Negative 07/23/2024 9:07 AM REAL ESTATE OFFICER DTL Comment: ----ADDITIONAL INFORMATION---- This test was developed and its performance characteristics determined by [facility] in a manner consistent with CLIA requirements. This test has not been cleared or approved by the U.S. Food and Drug Administration. IgLON5 CBA, S Negative Negative 07/23/2024 9:07 AM REAL ESTATE OFFICER DTL Comment: ----ADDITIONAL INFORMATION---- This test was developed and its performance characteristics determined by [facility] in a manner consistent with CLIA requirements. This test has not been cleared or approved by the U.S. Food and Drug Administration. [id number] CBA, S Negative Negative 9:07 AM REAL ESTATE OFFICER DTL Comment: ----ADDITIONAL INFORMATION---- This test was developed and its performance characteristics determined by [facility] in a manner consistent with CLIA requirements. This test has not been cleared or approved by the U.S. Food and Drug Administration. NIF IFA, S Negative Negative 07/23/2024 9:07 AM REAL ESTATE OFFICER DTL Comment: ----ADDITIONAL INFORMATION---- This test was developed and its performance characteristics determined by [facility] in a manner consistent with CLIA requirements. This test has not been cleared or approved by the U.S. Food and Drug Administration. SPORTS INFORMATION DIRECTOR-1, S Negative Negative 07/23/2024 9:07 AM REAL ESTATE OFFICER DTL Comment: ----ADDITIONAL INFORMATION---- This test was developed and its performance characteristics determined by [facility] in a manner consistent with CLIA requirements. This test has not been cleared or approved by the U.S. Food and Drug Administration. SPORTS INFORMATION DIRECTOR-2, S Negative Negative 07/23/2024 9:07 AM REAL ESTATE OFFICER DTL Comment: ----ADDITIONAL INFORMATION---- This test was developed and its performance characteristics determined by [facility] in a manner consistent with CLIA requirements. This test has not been cleared or approved by the U.S. Food and Drug Administration. Blood (Blood, Venous) 07/16/2024 12:21 PM REAL ESTATE OFFICER 07/16/2024 1:58 PM REAL ESTATE OFFICER Servando Garcias M.D. LAB BLOOD NON ADD-ON Fi nal Result [facility] [address] [place] [address], [facility] [address] [place] [address] documented in this encounter Visit Diagnoses Diagnosis Paresthesia- Primary Neuropathy Peripheral documented in this encounter Additional Health Concerns Assessment Noted Time PHQ-9 Depression Total Score: 1 12/06/19 22 3:26 PM CDT documented as of this encounter Care Teams Project Buyer Relationship Specialty Start Date End Date Sadaf Go APRN, C.N.P., M.S.N. [address], [place] [phone] PCP - General Family Medicine 08/08/19 documented as of this encounter
--- OUTSIDE RECORDS SUMMARY | 2024-07-27 14:27 | XMS_ITS | Encounter Summary ---
Author Organization [facility] Address [address] [place] [address] Care Team Providers Care After School Program Assistant Name Role Phone Sadaf Go APRN C.N.Lanre, M.S.N. Primary Care Provider Reason for Referral * Outpatient (Routine) - Closed Specialty Diagnoses / Procedures Referred By Yvette zhang Referred To Contact Diagnoses Pain Leg Bilateral Procedures Lower Extremity Arterial (GREAT) - Exercise (Claudication) Jaciel King M.D. [address] [place] [address] Phone: tel: fax: [facility] Referral ID Status Reason Start Date Expiration Date Visits Re quested Visits Authorized [id number] Closed 05/20/2024 05/20/2025 1 1 NTIFIC PROCESS OPERATOR Reason for Visit * Outpatient (Routine) - Closed Specialty Diagnoses / Procedures Referred By Yvette zhang Referred To Contact Diagnoses Pain Leg Bilateral Procedures Lower Extremity Arterial (GRETA) - Exercise (Claudication) Jaciel King M.D. [address] [place] [address] Phone: tel: fax: [facility] Referral ID Status Reason Start Date Expiration Date Visits Re quested Visits Authorized [id number] Closed 05/20/2024 05/20/2025 1 1 Encounter Details Date Type Department Care Team (Latest Contact Info) Description 06/16/2024 9:29 AM SCIENTIFIC PROCESS OPERATOR - 06/16/2024 11:59 PM SCIENTIFIC PROCESS OPERATOR Hospital Encounter Department of Vascular Medicine in [place], [place] [address] [place] [address] Jaciel King M.D. [address] [place] [address] Pain Leg Bilateral Discharge Disposition: Home or Self Care Social History Tobacco Use Types Packs/Day Years Used Date Smoking Tobacco: Every Day Cigarettes 1 25 Smokeless Tobacco: Never Alcohol Use Standard Drinks/Week Comments Yes 2 (1 standard drink = 0.6 oz pur e alcohol) [facility] Utilities Answer Date Recorded In the past 12 months has e electric, gas, oil, or water company [...] often do you attend chur ch or synagogue services? Never 05/13/2021 Do you belong to any clubs o r organizations such as sabianist groups, unions, fraternal or athletic groups, or [...] Answer Date Recorded PHQ-2 Score 0 09/07/2023 [facility] - Occupational Stress Questionnaire Answer Date Recorded [...] Sex Assigned at Female 07/06/2019 10:15 AM SCIENTIFIC PROCESS OPERATOR Legal Sex Female 8:01 AM SCIENTIFIC PROCESS OPERATOR Gender Identity Female 07/06/2019 10:15 AM SCIENTIFIC PROCESS OPERATOR Sexual Orientation Not on file documented [...] (Latest Contact Info) Description 07/30/2024 8:45 AM SCIENTIFIC PROCESS OPERATOR Appointment Department of Radiology, [facility], in [place], [place] [address] [place] [address] Micaela Ellington, PLASTIC FINISHER, C.N.P., M.S.N. [address] [place] [phone] 07/30/2024 10:00 AM SCIENTIFIC PROCESS OPERATOR Procedure visit Department of Obstetrics and Gynecology in [place], [place] [address] [place] [address] Micaela Ellington APRN, C.N.P., M.S.N. [address] [place] [address] Yaneth Edgar M.D. [address] [place] [address] Discharge Disposition: Home or Self Care 07/30/2024 12:45 PM SCIENTIFIC PROCESS OPERATOR Comprehensive Visit Division of Vascular and Endovascular Surgery in [place], [place] [address] [place] [address] Joselo Horton M.D. [address] [place] [address] documented as of this encounter Procedures Procedure Name Priority Date/Time Associated Diagnosis Comments LOWER EXTREMITY ARTERIAL (GRETA) - EXERCISE (CLAUDICATION) Routine 06/16/2024 10:45 AM SCIENTIFIC PROCESS OPERATOR Pain Leg Bilateral documented in this encounter Results * Lower Extremity Arterial (GRETA) - Exercise (Claudication) (06/16/2024 10:45 AM SCIENTIFIC PROCESS OPERATOR) Anatomical Region Laterality Modality Other 06/16/2024 9:59 AM SCIENTIFIC PROCESS OPERATOR Narrative 06/16/2024 11:21 AM SCIENTIFIC PROCESS OPERATOR Right: Doppler Waveforms: Normal at all levels evaluated. Resting Index: GRETA (PT)- 1.02 GRETA (DP)- 0.95 TBI- 0.70 Post-exercise GRETA: 0.97 Post-Exercise CF Doppler: Normal. Left: Doppler Waveforms: Normal at all levels evaluated. Resting Index: GRETA (PT)- 1.04 GRETA (DP)- 1.05 TBI- 0.66 Post-exercise GRETA: 1.01 General: Patient exercised at speed of 2.0 mph (10% grade) for 2'16 (123 yards). Standard protocol: 2.0 mph (10% grade) for 5 minutes (283 yards). Onset of symptoms at 1'07 (55 yards). Exercise terminated due to lower extremity symptoms and general fatigue. Conclusions: Normal study. No arterial obstruction in either lower extremity. EKG- negative for cardiac ischemia with exercise. No prior study for comparison Procedure Note Checo Odonnell M.D. - 06/16/2024 Right: Doppler Waveforms: Normal at all levels evaluated. RestingIndex: GRETA (PT)- 1.02 GRETA (DP)- 0.95 TBI- 0.70Post-exercise GRETA: 0.97 Post-Exercise CF Doppler: Normal. Left: Doppler Waveforms: Normal at all levels evaluated. RestingIndex: GRETA (PT)- 1.04 GRETA (DP)- 1.05 TBI- 0.66Post-exercise GRETA: 1.01 General: Patient exercised at speed of 2.0 mph (10% grade) for 2'16 (123yards). Standard protocol: 2.0 mph (10% grade) for 5 minutes (283yards). Onset of symptoms at 1'07 (55 yards). Exercise terminated dueto lower extremity symptoms and general fatigue. Conclusions: Normal study. No arterial obstruction in either lowerextremity. EKG- negative for cardiac ischemia with exercise. No priorstudy for comparison Jaciel King M.D. CV VASCULAR PROCEDURES Fi nal Result documented in this encounter Visit Diagnoses Diagnosis Pain Leg Bilateral documented in this encounter Additional Health Concerns Assessment Noted Time PHQ-9 Depression Total Score: 1 12/06/19 22 3:26 PM CDT documented as of this encounter Care Teams After School Program Assistant Relationship Specialty Start Date End Date Sadaf Go APRN, C.N.P., M.S.N. [address] [place] [phone] PCP - General Family Medicine 08/08/19 documented as of this encounter
--- OUTSIDE RECORDS SUMMARY | 2024-07-27 14:27 | XMS_ITS | Clinical Summary ---
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 925475984 (SNOMED CT) Active Marita Adams DNP,PIECE JOBBER,CN P Tender point Sacroiliac joint dysfunction 649448552 (SNOMED CT) Active Marita Adams DNP,PIECE JOBBER,CN P Sacroiliac disorder Paresthesia, bilateral legs 55988493 (SNOMED CT) Active Warren Gallagher MD Paresthesia Radicular pain to bilateral lower legs and bilateral feet 59692354 (SNOMED CT) Active Warren Gallagher MD Radicular pain Hip pain 04858375 (SNOMED CT) Active Warren Gallagher MD Hip pain Groin pain 990040016 (SNOMED CT) Active Warren Gallagher MD Inguinal pain Low back pain (LBP) 197290310 (SNOMED CT) Active Warren Gallagher MD Low back pain Medications Medication Instructions Start Date Stop Date Generic Name NDC Provider PREGABALIN 50 MG CAPS 1 capsule by mouth as directed : 1 cap or 50 mg 2 times/day for 1 week. Then increase by 50 mg 2 times/day every 1 week until 200 mg 2 times/day or until pain controlled. pregabalin [id number] Warren Gallagher MD FLUTICASONE PROPIONATE 50 MCG/ACT SUSP Administer 2 spray into both nostrils once a day 07/12 fluticasone propionate 98841896884 Warren Gallagher MD FLUTICASONE PROPIONATE 50 MCG/ACT SUSP Administer 2 spray into both nostrils once a day 07/12 fluticasone propionate 88602160483 Warren Gallagher MD FAMOTIDINE 40 MG TABS Take 1 tablet by mouth twice a day 07/12 famotidine 88450801493 Warren Gallagher MD TRETINOIN 0.025 % CREA Apply 1 pump to skin every night 07/12 tretinoin 05362856263 Warren Gallagher MD IBUPROFEN 200 MG TABS Take 400 mg by mouth 07/12 ibuprofen 92377845505 Warren Gallagher MD CYCLOBENZAPRINE HCL 10 MG TABS Take 1 tablet by mouth every night as needed 07/12 cyclobenzaprine 74905048281 Warren Gallagher MD multivitamin tablet Take 1 tablet by mouth once a day 07/12 multivitamin tablet Warren Gallagher MD LORATADINE 10 MG TBDP Dissolve 10 mg by mouth once a day 07/12 loratadine 48858449590 Warren Gallagher MD ACETAMINOPHEN 500 MG TABS Take by mouth 07/12 acetaminophen 17363166100 Warren Gallagher MD TRETINOIN 0.025 % CREA Apply 1 pump to skin every night 07/12 tretinoin 55199940774 Marita Adams DNP,PIECE JOBBER,SAND MILL OPERATOR magnesium 200 mg tablet Take 330 mg by mouth every morning magnesium 200 mg tablet Marita Adams DNP,PIECE JOBBER,SAND MILL OPERATOR ALBUTEROL SULFATE HFA 108 (90 Base) MCG/ACT AERS Inhale 2 puff every six hours as needed 12/19 albuterol sulfate 30069769479 Marita Adams DNP,PIECE JOBBER,SAND MILL OPERATOR FAMOTIDINE 40 MG TABS Take 1 tablet by mouth twice a day 07/12 famotidine 95386865799 Marita Adams DNPPIECE JOBBER,SAND MILL OPERATOR ACETAMINOPHEN 500 MG TABS Take by mouth 07/12 acetaminophen 29527579252 Marita Adams DNPPIECE JOBBER,SAND MILL OPERATOR LORATADINE 10 MG TBDP Dissolve 10 mg by mouth once a day 07/12 loratadine 41494011234 Marita Adams DNPPIECE JOBBER,SAND MILL OPERATOR CYCLOBENZAPRINE HCL 10 MG TABS Take 1 tablet by mouth every night as needed 07/12 cyclobenzaprine 92279868395 Marita Adams DNP,PIECE JOBBER,SAND MILL OPERATOR FLUTICASONE PROPIONATE 50 MCG/ACT SUSP Administer 2 spray into both nostrils once a day 07/12 fluticasone propionate 32175525113 Marita Adams DNPPIECE JOBBER,SAND MILL OPERATOR LIDOCAINE VISCOUS HCL 2 % SOLN Apply 10 ml every six hours as needed 12/19 lidocaine hcl 74025290309 Marita Adams DNPPIECE JOBBER,SAND MILL OPERATOR multivitamin tablet Take 1 tablet by mouth once a day 07/12 multivitamin tablet Marita Adams DNP,PIECE JOBBER,SAND MILL OPERATOR IBUPROFEN 200 MG TABS Take 400 mg by mouth 07/12 ibuprofen 49823145169 Marita Adams DNPPIECE JOBBER,SAND MILL OPERATOR FLUTICASONE PROPIONATE 50 MCG/ACT SUSP Administer 2 spray into both nostrils once a day 08/15 fluticasone propionate 65537309113 Marita Adams DNPPIECE JOBBER,SAND MILL OPERATOR TRETINOIN 0.025 % CREA APPLY ONE APPLICATION TOPICALLY AT BEDTIME 12/19 tretinoin 43796375036 QIEUSER QIEUSER multivitamin tablet Take 1 tablet by mouth daily. 12/19 multivitamin tablet QIEUSER QIEUSER magnesium 200 mg tablet Take 330 mg by mouth every morning before breakfast. 12/19 magnesium 200 mg tablet QIEUSER QIEUSER LORATADINE 10 MG TBDP Dissolve 10 mg in the mouth daily. Seasonal; summer and fall 12/19 loratadine 39437144053 QIEUSER QIEUSER LIDOCAINE VISCOUS HCL 2 % SOLN Apply 10 mL to the mouth or throat every 6 (six) hours as needed for pain. 12/19 lidocaine hcl 42832253408 QIEUSER QIEUSER IBUPROFEN 200 MG TABS Take 400 mg by mouth. 12/19 ibuprofen 70779738856 QIEUSER QIEUSER FLUTICASONE PROPIONATE 50 MCG/ACT SUSP Administer 2 sprays into each nostril daily. 12/19 fluticasone propionate 53396879590 QIEUSER QIEUSER FLUTICASONE PROPIONATE 50 MCG/ACT SUSP Administer 2 sprays into each nostril daily. 08/15 fluticasone propionate 89067907375 QIEUSER QIEUSER FAMOTIDINE 40 MG TABS Take 1 tablet (40 mg total) by mouth 2 (two) times a day. 12/19 famotidine 65548664198 QIEUSER QIEUSER CYCLOBENZAPRINE HCL 10 MG TABS TAKE ONE TABLET BY MOUTH AT BEDTIME NEEDED FOR MUSCLE SPASMS 12/19 cyclobenzaprine 57617088499 QIEUSER QIEUSER ALBUTEROL SULFATE HFA 108 (90 Base) MCG/ACT AERS Inhale 2 puffs every 6 (six) hours as needed for wheezing for up to 14 days. 12/19 albuterol sulfate 52726459114 QIEUSER QIEUSER ACETAMINOPHEN 500 MG TABS Take by mouth. 12/19 acetaminophen 38087584941 QIEUSER QIEUSER Medications Administered No information available. [...] Procedures Code Procedure Name Date Entry Date [facility]-[id number] Documentation of current medicatio ns ORDERS Immunofixation Serum w/Electrophoresis 24/04/15 ORDERS Other Test CPT-63647 Skin Biopsy, 1 lesion 03/12 CPT-18314 Skin Biopsy, each additional lesion 03/12 ORDERS Update Referring Provider 22/02/19 ORDERS Update Referring Provider 20 24/12/19 ORDERS Other Referral ORDERS Follow up as needed ORDERS Follow up with Neurologist or EDDIE ORDERS EMG bilateral low ext 11/20 CPT-72846 Nerve Conduction 7-8 studies CPT-51152 EMG with NCS (5+ muscles) - 2 limbs 12/17 [facility]-[id number] Documentation of current medicatio ns Vital Signs Date Name Value Unit Description Heart Rate 66 /min pulse rate Immunizations No information available. Advance Directives No information available.
--- OUTSIDE RECORDS SUMMARY | 2024-07-27 14:27 | XMS_ITS | Encounter Summary ---
Author Organization [facility] Address [address] [place] [address] Care Team Providers Care Truck Body Builder Apprentice Name Role Phone Sadaf Go APRN C.NNadeem, M.S.N. Primary Care Provider Reason for Referral * Outpatient (Routine) - Closed Specialty Diagnoses / Procedures Referred By Yvette zhang Referred To Contact Diagnoses Neuropathy Peripheral Procedures Autonomic reflex Screen Kenyon Mathis M.D. [address] [place] [address] Phone: tel: fax: [facility] Referral ID Status Reason Start Date Expiration Date Visits Re quested Visits Authorized [id number] Closed 05/16/2024 05/16/2025 1 1 HOUSE LOADER Reason for Visit * Outpatient (Routine) - Closed Specialty Diagnoses / Procedures Referred By Yvette zhang Referred To Contact Diagnoses Neuropathy Peripheral Procedures Autonomic reflex Screen Kenyon Mathis M.D. [address] [place] [address] Phone: tel: fax: [facility] Referral ID Status Reason Start Date Expiration Date Visits Re quested Visits Authorized [id number] Closed 05/16/2024 05/16/2025 1 1 Encounter Details Date Type Department Care Team (Latest Contact Info) Description 06/16/2024 6:43 AM MALT HOUSE LOADER - 06/16/2024 9:28 AM MALT HOUSE LOADER Hospital Encounter Department of Neurology in [place], [place] [address] [place] [address] Kenyon Mathis M.D. [address] [place] [address] Neuropathy Peripheral Discharge Disposition: Home or Self Care Social [...] often do you attend chur ch or zoroastrian services? Never 05/13/2021 Do you belong to any clubs o r organizations such as evangelical groups, unions, fraternal or athletic groups, or [...] Answer Date Recorded PHQ-2 Score 0 09/07/2023 [facility] - [...] your living situation today? I have a david place to live 02/25/2024 Education Answer Date Recorded What is the highest level of school you have completed or the highest degree you have received? Some college, no degree 06/13/2019 Comments No Sex and Gender Information Value Date Recorded Sex Assigned at Female 07/06/2019 10:15 AM MALT HOUSE LOADER Legal Sex Female 8:01 AM MALT HOUSE LOADER Gender Identity Female 07/06/2019 10:15 AM MALT HOUSE LOADER Sexual Orientation Not on file documented as [...] (Latest Contact Info) Description 07/30/2024 8:45 AM MALT HOUSE LOADER Appointment Department of Radiology, [facility], in [place], [place] [address] [place] [address] Micaela Ellington, KAY, C.N.P., M.S.N. [address] [place] [address] 07/30/2024 10:00 AM MALT HOUSE LOADER Procedure visit Department of Obstetrics and Gynecology in [place], [place] [address] [place] [address] Micaela Ellington, KAY, C.N.P., M.S.N. [address] [place] [address] Yaneth Edgar M.D. [address] [place] [address] Discharge Disposition: Home or Self Care 07/30/2024 12:45 PM MALT HOUSE LOADER Comprehensive Visit Division of Vascular and Endovascular Surgery in [place], [place] [address] [place] [address] Joselo Horton M.D. [address] [place] [phone] documented as of this encounter Procedures Procedure Name Priority Date/Time Associated Diagnosis Comments AUTONOMIC REFLEX SCREEN Routine 06/16/2024 8:49 AM MALT HOUSE LOADER Neuropathy Peripheral documented in this encounter Results * Autonomic reflex Screen (06/16/2024 8:49 AM MALT HOUSE LOADER) 06/16/2024 7:45 AM MALT HOUSE LOADER Narrative [facility] JAKE AUTO - 06/16/2024 11:17 AM MALT HOUSE LOADER FINAL REPORT AUTONOMIC REFLEX SCREEN [id number] Age: 49 Location: [place] Lab #: [id number] Mya Conn Sex: F Order ID: [id number] Date: 06/16/2024 : 1975 Autonomic Commissary Helper: Zulema Jalloh M.D. ([phone]) CONCLUSION Normal study. There is no evidence of autonomic failure. QUANTITATIVE AXON REFLEX SWEAT TEST (QSWEAT) Test Latency Sweat Output Sweat Output Normal Cutoff Side Site Current Duration (min) (uL) 5th (10th) Percentile (mA) (min) L Forearm 2 10 1.6 0.55 F: 0.08 (0.13) L Proximal Leg 2 10 1.3 0.56 F: 0.19 (0.31) L Distal Leg 2 10 1.0 0.53 F: 0.14 (0.23) L Foot 2 10 2.0 0.55 F: 0.07 (0.14) Comments on Sudomotor Test: QSART responses were normal at all sites. DEEP BREATHING & VALSALVA MANEUVER RESPONSES Result Normal Cutoff Deep Breathing Heart Rate Range (bpm) 11.3 > 10 Valsalva Maneuver Valsalva Ratio 1.53 > 1.36 Comments on Deep Breathing: Heart rate responses to deep breathing were normal. Comments on Valsalva maneuver: (A) Heart rate responses to the Valsalva maneuver were normal. (B) Mwyt-tf-nokp blood pressure responses to the Valsalva maneuver were normal. BLOOD PRESSURE AND HEART RATE RESPONSES TO TILT BP (mmHg) Heart Rate (BPM) Supine 120/72 60 Tilt 1 min 136/76 68 Tilt 2 min 112/70 70 Tilt 3 min 124/76 69 Tilt 5 min 130/82 72 Tilt 10 min 142/80 73 Comments on Tilt: Patient was tilted for 10 minutes. Orthostatic hypotension was not detected. Heart rate response was normal. The patient reported feeling mild lightheadedness the first few minutes of tilt. -99 = missing value us Kenyon Mathis M.D. NEUROLOGY ORDERABLES Fi nal Result JAKE AUTO documented in this encounter Visit Diagnoses Diagnosis Neuropathy Peripheral documented in this encounter Additional Health Concerns Assessment Noted Time PHQ-9 Depression Total Score: 1 12/06/19 22 3:26 PM CDT documented as of this encounter Care Teams Truck Body Builder Apprentice Relationship Specialty Start Date End Date Sadaf Go APRN, C.N.P., M.S.N. [address], [place] [address] PCP - General Family Medicine 08/08/19 documented as of this encounter
--- OUTSIDE RECORDS SUMMARY | 2024-07-27 14:27 | XMS_ITS ---
Author Organization [facility] Address [address] [place] [address] Care Team Providers Care Sde Name Role Phone Sadaf Go APRN C.N.P., M.S.N. Primary Care Provider [facility] Program Status:Enrolled (Active) Start date:01/14/2024 Enrollment date:01/17/2024 Current support & services provided:Tier 2 - Specialty Care Consults Continued Care and Services Coordination
--- OUTSIDE RECORDS SUMMARY | 2024-07-27 14:28 | XMS_ITS ---
Author Organization [facility] Address [address] [place] [address] Care Team Providers Care Senior Compensation Analyst Name Role Phone Unavailable Unavailable Unavailable Surgery Details Not on file Complications Check Surgery Details section. Procedure Estimated Blood Loss Check Surgery Details section. Procedure Findings Check Surgery Details section. Procedure Specimens Taken Check Surgery Details section.
--- OUTSIDE RECORDS SUMMARY | 2024-07-27 14:28 | XMS_ITS | Clinical Summary ---
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 0 07/21/19 14 Active albuterol HFA (PRO-AIR,VENTOLIN, PROVENTIL) 90 mcg/actuation inhalerIndications :Acute bronchitis Inhale 2 Puffs by mouth 4 times daily if needed. 1 Inhaler 0 04/10/20 14 Active HYDROcodone-acetam inophen, 5-325 mg, (NORCO) per tabletIndications: Sacroiliac joint dysfunction of left side Take 1 tablet by mouth every 4 hours if needed for Pain Max acetaminophen dose: 4000 mg in 24 hrs. 20 tablet 10/03/19 17 Active MAPAP EXTRA STRENGTH 500 mg tabletIndications: Chronic midline low back pain without sciatica TAKE ONE TABLET BY MOUTH EVERY 6 HOURS NEEDED, MAX ACETAMINOPHEN DOSE: 4000MG / 24HRS 120 tablet 1 02/20/20 17 Active ibuprofen (ADVIL; MOTRIN) 800 mg tabletIndications: Chronic midline low back pain without sciatica TAKE ONE TABLET BY MOUTH THREE TIMES A DAY NEEDED 30 tablet 06/04/20 17 Active loratadine (ALAVERT) 10 mg orally disintegrating tablet Place 1 tablet on the tongue once daily. 0 05/30/20 17 Active DULoxetine (CYMBALTA) 60 mg Delayed-release capsuleIndications :Depression with anxiety TAKE ONE CAPSULE BY MOUTH EVERY DAY 30 capsule 02/02/20 18 Active DULoxetine (CYMBALTA) 30 mg Delayed-release capsuleIndications :Depression with anxiety Take 1 capsule by mouth once daily. 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 Work up at at [facility] was negative and extensive -- PPD with 0 induration; negative sputum culture, microbacaterial QuantiFERON gold test, amplified direct MTbc RNA x2, sputum staining. 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 Numbness of hand 06/22/2010 Back pain 06/22/2010 Numbness of arm 06/22/2010 Tobacco abuse 12/31/2009 Depression with anxiety 12/31/2009 Overview (11/15/2016): Dr. Manriquez recommend stopping all benzo's as they have only short effect and overall worsen mood. Immunizations Name Administration Dates Next Due Influenza, IIV3 (Age >=3 years) 03/22/2009,05/15,04/13/2005 Influenza, IIV4 05/30/2017,08/03/2016 Tdap 05/25/2017,08/22/2007 Tuberculin (PPD) 12/27/2011 Family History Medical History Relation Name Comments Good Health Brother Other Brother congenital one kidney Hyperlipidemia Father Hypertension Father Stroke Father severe Alcohol/Drug Maternal Grandfather EtOh Heart Disease Maternal Grandfather [place] Hyperlipidemia Maternal Grandfather Cancer-breast Maternal Grandmother recove red fully; had B mastectomies Heart Disease Mother [place]; CABG 3v Hypertension Mother Psychiatric illness Mother bipolar Hyperlipidemia Paternal Grandfather Stroke Paternal Grandfather Alcohol/Drug Son 1 Mable chem dependency ; s/p tx Alcohol/Drug Son 2 [place] Psychiatric illness Son 2 Tristian bipolar, Aspergers, ADHD Good Health Son 3 [place] Relation Name Status Comments Brother Alive Father Alive Maternal Grandfather (Age 55) [place] Maternal Grandmother Alive Mother Alive Paternal Grandfather Alive Paternal Grandmother (Age 85) [place] F Son 1 Mable Alive Son 2 [place] Alive Son 3 [place] Alive Social History Tobacco Use Types Packs/Day Years Used Date Smoking Tobacco: Every Day Cigarettes Smokeless Tobacco: Never Tobacco Cessation:Ready to Q uit: No; Counseling Given: Yes Comments:declines any information Alcohol Use Standard Drinks/Week Comments Yes 0 (1 standard drink = 0.6 oz pur e alcohol) once a week; a few drink Comments No Sex and Gender Information Value Date Recorded Sex Assigned at Not on file Legal Sex Female 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 Gender Identity Not on file Sexual Orientation Not on file Obstetrics History Para Term AB IAB SAB Ectopic Multiple Livin g Live Births 3 3 3 3 Date Outcome GA Total Labor Labor/2nd/3rd Weight Sex Type Anes PTL Cele A1 A5 Name Clin Term Term Term Comments Breast fed all children Last Filed Vital Signs Vital Sign Reading Time Taken Comments Blood Pressure 116/74 05/30/2017 2:20 PM PREFITTER Pulse 80 05/30/2017 2:20 PM PREFITTER Temperature 36.7 C (98 F) 05/25/2017 9:58 PM PREFITTER Respiratory Rate 15 05/25/2017 9:58 PM PREFITTER Oxygen Saturation 99% 05/25/2017 9:58 PM PREFITTER Inhaled Oxygen Concentration - - Weight 70.3 kg (154 lb 14.4 oz) 05/30/2017 2:20 PM PREFITTER Height 172.1 cm (5' 7.75) 05/30/2017 2:20 PM CS T Body Mass Index 23.73 05/30/2017 2:20 PM PREFITTER Plan of Treatment Health Maintenance Due Date Last Done Comments HIV for age 15-65 1990 Hepatitis C screening for age 18-79 1993 Depression screening for age 12+ 11/15/2017 11/15/2016, 01/12/2016 BMI (ht and wt on same day) for age 18+ 05/30/2018 05/30/2017, 11/15/2016, 06/12/2016, Additional history exists Colonoscopy through age 75 02/03/2020 Mammogram for age 45-75 02/03/2020 02/28/2016, 02/24 Lipids for age 45-75 01/11/2021 01/12/2016, 07/14/19 11 Pap test for age 21-65 01/11/2021 6, 01/12/2016, 07/20/2011, Additional history exists COVID-19 vaccine series (2023-25 season) 2024 Influenza for age 9-49 03/02/2024 7, 08/03/2016, 03/22/2009, Additional history exists Tetanus booster 05/25/2027 05/25/2017, 08/03, 08/22/2007 Tdap Completed 05/25/2017, 08/22/2007 Pneumococcal series for age 6-49 Aged Out No longer eligible based on patient's age to complete this topic Procedures Procedure Name Priority Date/Time Associated Diagnosis Comments XR MAMMO BILAT DIAG FFDM (IA) Routine 02/28/2016 10:15 AM CDT Screening for breast cancer LIPID PANEL W REFLEX MEASURED LDL Routine 01/12/2016 11:25 AM CDT Screening for endocrine, metabolic and immunity disorder QC TECH THIN PREP PAP SCREEN IMAGED Routine 01/12/2016 10:00 AM CDT Cervical cancer screening from Last 3 Months or Most Recently Relevant to Health Maintenance Results * XR MAMMO BILAT DIAG FFDM (02/28/2016 10:15 AM CDT) Anatomical Region Laterality Modality BREASTS, Breast Left, Breast Right Bilateral Other 02/28/2016 10:1 5 AM CDT Impressions 02/28/2016 2:45 PM CDT IMPRESSION: BI-RADS CATEGORY: 1 - NEGATIVE. RECOMMENDED FOLLOW-UP: Annual Mammography Exam results letter mailed to patient. Narrative 02/28/2016 2:45 PM CDT SCREENING MAMMOGRAM, BILATERAL, DIGITAL w/CAD - 02/28/2016 10:15 AM BREAST SYMPTOMS: No current breast complaints. COMPARISON: 02/24/15. BREAST DENSITY: Heterogeneously dense COMMENTS: No findings of suspicion for malignancy. Procedure Note Aubrey Harden MD - 02/28/2016 SCREENING MAMMOGRAM, BILATERAL, DIGITAL w/CAD - 02/28/2016 10:15 AM BREAST SYMPTOMS: No current breast complaints. COMPARISON: 02/24/15. BREAST DENSITY: Heterogeneously dense COMMENTS: No findings of suspicion for malignancy. IMPRESSION: IMPRESSION: BI-RADS CATEGORY: 1 - NEGATIVE. RECOMMENDED FOLLOW-UP: Annual Mammography Exam results letter mailed to patient. Natalia Diaz MD MAMMO Final Re sult * (ABNORMAL) LIPID PANEL W REFLEX MEASURED LDL (01/12/2016 11:25 AM CDT) CHOLESTEROL,TOTAL 209(H) 100 - 199 mg/dL 01/12/2016 11:53 PM CDT [facility] TRIGLYCERIDES 80 <150 mg/dL 01/12/2016 11:53 PM CDT [facility] HDL CHOLESTEROL 57 >40 mg/dL 01/12/2016 11:53 PM CDT [facility] NON-HDL CHOLESTEROL 152(H) <145 mg/dl 01/12/2016 11:53 PM CDT [facility] CHOL/HDL RATIO 3.67 <4.50 01/12/2016 11:53 PM CDT [facility] LDL CHOLESTEROL 136(H) <=130 mg/dL 01/12/2016 11:53 PM CDT [facility] PATIENT STATUS FASTING 01/12/2016 11:53 PM CDT [facility] Blood BLOOD SPECIMEN / Unknown Butterfly / Unknown 01/12/2016 11:25 AM CDT 01/12/2016 11:25 AM CDT Natalia Diaz MD CHEMISTRY Final Re sult [facility] [address] [place] [address], [place] * QC TECH THIN PREP PAP SCREEN IMAGED (01/12/2016 10:00 AM CDT) QC TECH CYTOLOGY See Anatomic Pathology case 01/13/2016 12:00 PM CDT [facility] Other (Cervical) Non-Blood / Unknown 01/12/2016 10:00 AM CDT 01/12/2016 11:34 AM CDT Natalia Diaz MD PATHOLOGY/CYTOLOGY Final Result [facility] [address] [place] [address], from Last 3 Months or Most Recently Relevant to Health Maintenance Insurance [facility] NON-MS-[employer] WORK[employer] Care Teams Flower Machine Operator Relationship Specialty [place] [id number] [place] [address] PCP - General Family Practice 6/10/15
--- OUTSIDE RECORDS SUMMARY | 2024-07-27 14:28 | XMS_ITS | Referral Summary ---
Author Organization [facility] Address [address] [place] [address] Care Team Providers Care Claims Adjuster Name Role Phone Sadaf Go APRN, C.N.Crispin., M.S.N. Primary Care Provider Source Comments Patient records contain information from all sites at [facility]. For routine questions regarding patient records, call [phone] during business hours, M-F 8:00 AM - 5:00 PM Central Time. Record requests for emergency care only can be directed to [phone] at any time.[facility] Encounters Date Type Department Care Team Description 07/16/2024 12:10 PM COMPENSATOR - 07/16/2024 11:59 PM COMPENSATOR Hospital Encounter Department of Laboratory Medicine and Pathology, [facility] in [place], [place] [address] [place] [address] Servando Garcias M.D. Paresthesia Discharge Disposition: Home or Self Care 07/16/2024 10:00 AM COMPENSATOR Comprehensive Visit Department of Neurology in [place], [place] [address] [place] [address] Servando Garcias M.D. Paresthesia (Primary Dx); Neuropathy Peripheral 06/16/2024 Clinical Communication [facility] in [address] [place] [phone] Sadaf Go APRN C.N.P., M.S.N. 06/16/2024 9:29 AM COMPENSATOR - 06/16/2024 11:59 PM COMPENSATOR Hospital Encounter Department of Vascular Medicine in [place], [place] [address] [place] [address] Jaciel King M.D. Pain Leg Bilateral Discharge Disposition: Home or Self Care 06/16/2024 6:43 AM COMPENSATOR - 06/16/2024 9:28 AM COMPENSATOR Hospital Encounter Department of Neurology in [place], [place] [address] [place] [address] Antionette Mathis M.D. Neuropathy Peripheral Discharge Disposition: Home or Self Care 06/13/2024 12:00 PM COMPENSATOR Comprehensive Visit Department of Obstetrics and Gynecology in [address] [phone] Micaela Ellington APRN, C.N.P., M.S.N. Perimenopause (Primary Dx); Pelvic Congestion Syndrome; Pap Smear Examination Discharge Disposition: Home or Self Care 06/02/2024 9:15 AM COMPENSATOR - 06/02/2024 11:59 PM COMPENSATOR Hospital Encounter Department of Laboratory Medicine in [address] [phone] Sadaf Go APRN, C.N.P., M.S.N. Elevated Blood Pressure Discharge Disposition: Home or Self Care 05/28/2024 Orders Only [facility] of Family Medicine in [address] [place] [address] Sadaf Go APRN, C.N.P., M.S.N. Amenorrhea (Primary Dx); Bleeding Postmenopausal; Pelvic Congestion Syndrome 05/28/2024 7:42 AM COMPENSATOR - 05/28/2024 11:59 PM COMPENSATOR Hospital Encounter Department of Radiology in [address] [phone] Sadaf Go APRN, C.N.P., M.S.N. Bloating Abdominal Discharge Disposition: Home or Self Care 05/27/2024 6:42 PM COMPENSATOR - 05/27/2024 11:59 PM COMPENSATOR Hospital Encounter Department of Radiology in [place], [place] [address] [place] [phone] Sadaf Go APRN, C.N.P., M.S.N. Bleeding Postmenopausal Discharge Disposition: Home or Self Care 05/26/2024 Clinical Communication [facility] in [place], [place] [address] [place] [address] Sadaf Go APRN, C.N.P., M.S.N. 05/26/2024 4:30 PM COMPENSATOR - 05/26/2024 11:59 PM COMPENSATOR Hospital Encounter Department of Laboratory Medicine, [facility], in [place], [place] [address] [place] [address] Sadaf Go APRN, C.N.P., M.S.N. Bleeding Postmenopausal; Bloating Abdominal Discharge Disposition: Home or Self Care 05/26/2024 4:04 PM COMPENSATOR - 05/26/2024 4:29 PM COMPENSATOR Hospital Encounter Department of Laboratory Medicine, [facility], in [place], [place] [address] [place] [address] Sadaf Go APRN, C.N.P., M.S.N. Bleeding Postmenopausal; Bloating Abdominal Discharge Disposition: Home or Self Care 05/26/2024 3:00 PM COMPENSATOR Office Visit [facility] in [place], [place] [address] [place] [address] Sadaf Go APRN, C.N.P., M.S.N. Other Chronic Pain (Primary Dx); Neuropathy Fiber Small; Pain Leg Bilateral; Bleeding Postmenopausal; Bloating Abdominal; Screening Colon Cancer Average Risk; Livedo Reticularis; Other Specified Anxiety Disorders; Tobacco Use 05/21/2024 8:36 AM COMPENSATOR - 05/21/2024 12:35 PM COMPENSATOR Hospital Encounter Department of Neurology in [place], [place] [address] [place] [address] Antionette Mathis M.D. Neuropathy Peripheral Discharge Disposition: Home or Self Care 05/21/2024 12:36 PM COMPENSATOR - 05/21/2024 11:59 PM COMPENSATOR Hospital Encounter Department of Neurology in [place], [place] [address] [place] [address] Antionette Mathis M.D. Neuropathy Peripheral Discharge Disposition: Home or Self Care 05/20/2024 Orders Only Department of Vascular Medicine in [place], [place] [address] [place] [phone] Jaciel King M.D. Pain Leg Bilateral (Primary Dx) 05/20/2024 2:30 PM COMPENSATOR Comprehensive Visit Department of Vascular Medicine in [place], [place] [address] [place] [phone] Jaciel King M.D. Neuropathy Fiber Small (Primary Dx); Pain Leg Bilateral; Tobacco Use 05/19/2024 9:30 AM COMPENSATOR Office Visit Department of Family Medicine in [place], [place] [address] [place] [address] Sadaf Go, CONTRACT LAW SPECIALIST, C.N.P., M.S.N. Kamryn Ratliff, Pharm.D., BCACP, R.Ph. Neuropathy Fiber Small [G62.89] (Primary Dx) 05/16/2024 11:46 AM COMPENSATOR - 05/16/2024 11:59 PM COMPENSATOR Hospital Encounter Department of Laboratory Medicine and Pathology, [facility] in [place], [place] [address] [place] [phone] Antionette Mathis M.D. Neuropathy Peripheral Discharge Disposition: Home or Self Care 05/16/2024 11:46 AM COMPENSATOR - 05/16/2024 11:59 PM COMPENSATOR Hospital Encounter Department of Laboratory Medicine and Pathology, [place], [place] [address] [place] [address] Antionette Mathis M.D. Neuropathy Peripheral Discharge Disposition: Home or Self Care 05/16/2024 11:00 AM COMPENSATOR Comprehensive Visit Department of Medical Genetics in [place], [place] [address] [place] [address] Antionette Mathis M.D. 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 Marta Vela Livedo Reticularis; Neuropathy Fiber Small 04/29/2024 1:30 PM CDT Telemedicine Department of Pain Medicine in [place], [place] [address] [place] [phone] Benjamin Bell M.D., M.B.A. Pain Back (Primary Dx) Discharge Disposition: Home or Self Care 04/28/2024 10:50 AM CDT - 04/28/2024 11:59 PM CDT Hospital Encounter Department of Laboratory Medicine, [facility], in [place], [place] [address] [facility] [place] [phone] Sadaf Go APRN, C.N.P., M.S.N. Livedo Reticularis; Neuropathy Fiber Small Discharge Disposition: Home or Self Care 04/28/2024 10:00 AM CDT Office Visit [facility] in [place], [place] [address] [place] [phone] Sadaf Go APRN, C.N.P., M.S.N. 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) from Last 3 Months Allergies Active Allergy Reactions Criticality Noted Date Comments Levofloxacin Nausea And Vomiting 12/31/2009 Levaquin Medications * This document contains information received from the source organization and may not represent a complete record from that organization. multivitamin tablet Take 1 tablet by mouth daily. Active magnesium 200 mg tablet Take 330 mg by mouth daily before morning meal. Active UNABLE TO FIND Med Name: THC oil. 0.25 ml prn Active polyethylene glycol-electrol ytes (Golytely) 236-22.74-6.74 -5.86 gram solution Take first portion of the prep at 4pm the evening before and start second portion 3 to 6 hours before and finish 2 hours prior to report time. 4000 mL 4 Active Additional Information Patient not taking.Reported on 06/13/2024 polyethylene glycol (Miralax) 17 gram/dose oral powder Mix 1 heaping tablespoon of MiraLAX into 4 to 8 oz of clear beverage and drink daily starting 5 to 7 days prior to procedure through the day before the procedure. 238 g 4 Active Additional Information Patient not taking.Reported on 06/13/2024 bisacodyL (Dulcolax) 5 mg EC tablet Take 2 tablets (10mg) by mouth 2 days before and the day before the procedure in the morning 4 tablet Active Additional Information Patient not taking.Reported on 06/13/2024 Active Problems Problem Noted Date Diagnosed Date Neuropathy Fiber Small 04/28/2024 Livedo Reticularis 08/30/2015 Pain Back 06/22/2010 Other Specified Anxiety Disorders 12/31/2009 Overview (11/09/2017): Overview: Dr. Manriquez recommend stopping all benzo's as they have only short effect and overall worsen mood. 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 Work up at at [place] was negative and extensive -- PPD with 0 induration; negative sputum culture, microbacaterial QuantiFERON gold test, amplified direct MTbc RNA x2, sputum staining. 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 Anesthesia Of Skin 06/22/2010 9 Immunizations Immunization Administration Dates Next Due Influenza TIV (IM) 03/22/2009,05/15/2008, 005 Influenza, Seasonal, Injectable 03/22/2009,05/15,04/13/2005 Influenza, Unspecified 03/22/2009,05/15/2008, PCV20 12/05/2021 PPD Test 12/27/2011 Tdap 05/25/2017,08/22/2007 influenza vaccine quad (FLUZ ONE/FLUARIX) (6 months and older)(PF) 05/30/2017,08/03/2016 Social History Tobacco Use Types Packs/Day Years Used Date Smoking Tobacco: Every Day Cigarettes 1 25 Smokeless Tobacco: Never Tobacco Cessation:Ready to Q uit: Not Asked; Counseling Given: Not Answered Alcohol Use Standard Drinks/Week Comments Yes 2 (1 standard drink = 0.6 oz pur e alcohol) [facility] [employer] Answer Date Recorded In the past 12 months has e [employer], [employer], oil, or water [employer] threatened to shut off services in your [...] week 05/13/2021 How often do you attend [facility] or mormon services? Never 05/13/2021 Do you belong to any clubs o r organizations such as jehovah's witness groups, unions, fraternal or athletic groups, or [...] Answer Date Recorded PHQ-2 Score 0 09/07/2023 [facility] of Occupat ional [facility] - Occupational Stress Questionnaire Answer [...] your living situation today? I have a [facility] place to live 02/25/2024 Education Answer Date Recorded What is the highest level of school you have completed or the highest degree you have received? Some college, no degree 06/13/2019 Comments No Sex and Gender Information Value Date Recorded Sex Assigned at Female 07/06/2019 10:15 AM COMPENSATOR Legal Sex Female 8:01 AM COMPENSATOR Gender Identity Female 07/06/2019 10:15 AM COMPENSATOR Sexual Orientation Not on file Last Filed Vital Signs Vital Sign Reading Time Taken Comments Blood Pressure 150/89 06/13/2024 11:46 AM COMPENSATOR Pulse 78 06/13/2024 11:46 AM COMPENSATOR Temperature 36.9 C (98.4 F) 05/26/2024 2:42 PM COMPENSATOR Respiratory Rate 15 05/26/2024 2:42 PM COMPENSATOR Oxygen Saturation 97% 04/24/2024 2:44 PM CDT Inhaled Oxygen Concentration - - Weight 54.2 kg (119 lb 7.8 oz) 07/16/2024 10:06 AM COMPENSATOR Height 171.2 cm (5' 7.4) 07/16/2024 10:06 AM CS T Body Mass Index 18.49 07/16/2024 10:06 AM COMPENSATOR Plan of Treatment Upcoming Encounters Date Type Department Care Team (Latest Contact Info) Description 07/30/2024 8:45 AM COMPENSATOR Appointment Department of Radiology, [facility], in [place], [place] [address] [place] [address] Micaela Ellington, CONTRACT LAW SPECIALIST, C.N.P., M.S.N. [address] [place] [phone] 07/30/2024 10:00 AM COMPENSATOR Procedure visit Department of Obstetrics and Gynecology in [place], [place] [address] [place] [phone] Micaela Ellington, Cesar VILLANUEVAP., M.S.N. [address] [place] [address] Yaneth Edgar M.D. [address] [place] [address] Discharge Disposition: Home or Self Care 07/30/2024 12:45 PM COMPENSATOR Comprehensive Visit Division of Vascular and Endovascular Surgery in [place], [place] [address] [place] [address] Joselo Horton M.D. [address] [place] [address] Procedures Procedure Name Priority Date/Time Associated Diagnosis Comments AXONAL, AUTOIMM/PARANEO, SERUM Routine 07/16/2024 12:21 PM COMPENSATOR Paresthesia LOWER EXTREMITY ARTERIAL (GRETA) - EXERCISE (CLAUDICATION) Routine 06/16/2024 10:45 AM COMPENSATOR Pain Leg Bilateral AUTONOMIC REFLEX SCREEN Routine 06/16/2024 8:49 AM COMPENSATOR Neuropathy Peripheral THINPREP W/HPV CO-TEST SCREEN Routine 06/13/2024 1:04 PM COMPENSATOR Pap Smear Examination HPV WITH GENOTYPING, PCR, THINPREP Routine 06/13/2024 1:04 PM COMPENSATOR COMPREHENSIVE METABOLIC PANEL, S/P Routine 06/02/2024 9:20 AM COMPENSATOR Elevated Blood Pressure CT ABDOMEN PELVIS WITH IV CONTRAST RAD - Routine (most inpatients and all outpatients) 05/28/2024 8:15 AM COMPENSATOR Bloating Abdominal US PELVIS TRANSVAGINAL AND TRANSABDOMINAL RAD - Routine (most inpatients and all outpatients) 05/27/2024 7:13 PM COMPENSATOR Bleeding Postmenopausal URINALYSIS WITH MICROSCOPIC IF INDICATED, U Routine 05/26/2024 4:07 PM COMPENSATOR Bleeding Postmenopausal Bloating Abdominal EMG Routine 05/21/2024 12:36 PM COMPENSATOR Neuropathy Peripheral THERMOREGULATORY SWEAT TEST Routine 05/21/2024 10:35 AM COMPENSATOR Neuropathy Peripheral CRYOPRESERVATION FOR MOLEC STUDIES Routine 05/16/2024 11:59 AM COMPENSATOR Neuropathy Peripheral HEMOGLOBIN A1C, B Routine 05/16/2024 11:59 AM COMPENSATOR Neuropathy Peripheral SS-A AND SS-B ABS, IGG, S Routine 05/16/2024 11:59 AM COMPENSATOR Neuropathy Peripheral ONEOME RIGHTMED Routine 04/28/2024 10:58 AM CDT Livedo Reticularis Neuropathy Fiber Small BI BREAST SCREENING BILATERAL WITH TOMOSYNTHESIS RAD - Routine (most inpatients and all outpatients) 03/06/2024 1:03 PM CDT Screening Mammogram Breast Cancer LIPID PANEL, S Routine 02/21/2023 11:04 AM CDT Elevated Blood Pressure COLOGUARD Routine 12/22/2021 6:28 AM CDT Screening Cancer Colon from Last 3 Months or Most Recently Relevant to Health Maintenance Results * Axonal Neuropathy, Autoimmune/Paraneoplastic Evaluation (07/16/2024 12:21 PM COMPENSATOR) Autoimmune Axonal Interp, S see below 07/23/2024 9:07 AM COMPENSATOR DTL Comment: No informative autoantibodies were detected in this evaluation. However, a negative result does not exclude an autoimmune neuropathy. IFA Notes None. 07/23/2024 9:07 AM COMPENSATOR DTL Amphiphysin Ab, S Negative Negative 025 9:07 AM COMPENSATOR DTL Comment: ----ADDITIONAL INFORMATION---- This test was developed and its performance characteristics determined by [facility] in a manner consistent with CLIA requirements. This test has not been cleared or approved by the U.S. Food and Drug Administration. ISRAEL-1, S Negative Negative 07/23/2024 9:07 AM COMPENSATOR DTL Comment: ----ADDITIONAL INFORMATION---- This test was developed and its performance characteristics determined by [facility] in a manner consistent with CLIA requirements. This test has not been cleared or approved by the U.S. Food and Drug Administration. ISRAEL-3, S Negative Negative 07/23/2024 9:07 AM COMPENSATOR DTL Comment: ----ADDITIONAL INFORMATION---- This test was developed and its performance characteristics determined by [facility] in a manner consistent with CLIA requirements. This test has not been cleared or approved by the U.S. Food and Drug Administration. AGNA-1, S Negative Negative 07/23/2024 9:07 AM COMPENSATOR DTL Comment: ----ADDITIONAL INFORMATION---- This test was developed and its performance characteristics determined by [facility] in a manner consistent with CLIA requirements. This test has not been cleared or approved by the U.S. Food and Drug Administration. AP3B2 IFA, S Negative Negative 07/23/2024 9:07 AM COMPENSATOR DTL Comment: ----ADDITIONAL INFORMATION---- This test was developed and its performance characteristics determined by [facility] in a manner consistent with CLIA requirements. This test has not been cleared or approved by the U.S. Food and Drug Administration. CASPR2-IgG CBA, S Negative Negative 025 9:07 AM COMPENSATOR DTL Comment: ----ADDITIONAL INFORMATION---- This test was developed and its performance characteristics determined by [facility] in a manner consistent with CLIA requirements. This test has not been cleared or approved by the U.S. Food and Drug Administration. CRMP-5-IgG Western Blot, S Negative Negative 07/23/2024 9:07 AM COMPENSATOR DTL Comment: ----ADDITIONAL INFORMATION---- This test was developed and its performance characteristics determined by [facility] in a manner consistent with CLIA requirements. This test has not been cleared or approved by the U.S. Food and Drug Administration. GFAP IFA, S Negative Negative 07/23/2024 9:07 AM COMPENSATOR DTL Comment: ----ADDITIONAL INFORMATION---- This test was developed and its performance characteristics determined by [facility] in a manner consistent with CLIA requirements. This test has not been cleared or approved by the U.S. Food and Drug Administration. IgLON5 CBA, S Negative Negative 07/23/2024 9:07 AM COMPENSATOR DTL Comment: ----ADDITIONAL INFORMATION---- This test was developed and its performance characteristics determined by [facility] in a manner consistent with CLIA requirements. This test has not been cleared or approved by the U.S. Food and Drug Administration. LGI1-IgG CBA, S Negative Negative 9:07 AM COMPENSATOR DTL Comment: ----ADDITIONAL INFORMATION---- This test was developed and its performance characteristics determined by [facility] in a manner consistent with CLIA requirements. This test has not been cleared or approved by the U.S. Food and Drug Administration. NIF IFA, S Negative Negative 07/23/2024 9:07 AM COMPENSATOR DTL Comment: ----ADDITIONAL INFORMATION---- This test was developed and its performance characteristics determined by [facility] in a manner consistent with CLIA requirements. This test has not been cleared or approved by the U.S. Food and Drug Administration. OPTIONS TRADER-1, S Negative Negative 07/23/2024 9:07 AM COMPENSATOR DTL Comment: ----ADDITIONAL INFORMATION---- This test was developed and its performance characteristics determined by [facility] in a manner consistent with CLIA requirements. This test has not been cleared or approved by the U.S. Food and Drug Administration. OPTIONS TRADER-2, S Negative Negative 07/23/2024 9:07 AM COMPENSATOR DTL Comment: ----ADDITIONAL INFORMATION---- This test was developed and its performance characteristics determined by [facility] in a manner consistent with CLIA requirements. This test has not been cleared or approved by the U.S. Food and Drug Administration. Blood (Blood, Venous) 07/16/2024 12:21 PM COMPENSATOR 07/16/2024 1:58 PM COMPENSATOR us Servando Garcias M.D. LAB BLOOD NON ADD-ON Fi nal Result [facility] [address] [place] [address], [facility] DT [address] [place] [address] * Lower Extremity Arterial (GRETA) - Exercise (Claudication) (06/16/2024 10:45 AM COMPENSATOR) Anatomical Region Laterality Modality Other 06/16/2024 9:59 AM COMPENSATOR Narrative 06/16/2024 11:21 AM COMPENSATOR Right: Doppler Waveforms: Normal at all levels [...] M.D. CV VASCULAR PROCEDURES Fi nal Result * Autonomic reflex Screen (06/16/2024 8:49 AM COMPENSATOR) 06/16/2024 7:45 AM COMPENSATOR Narrative [facility] - 06/16/2024 11:17 AM COMPENSATOR FINAL REPORT AUTONOMIC REFLEX SCREEN [phone] Age: 49 Location: [facility] Lab #: [id number] Chalo Person Sex: F Order ID: [id number] Date: 06/16/2024 : 1975 Autonomic Director Data: Zulema Jalloh M.D. ([id number]) CONCLUSION Normal study. There is no evidence [...] to the Valsalva maneuver were normal. (B) [id number] blood pressure responses to the Valsalva maneuver [...] of tilt. -99 = missing value us Antionette Mathis M.D. NEUROLOGY ORDERABLES Fi nal Result [facility] AUTO * ThinPrep w/HPV Co-Test Screen (06/13/2024 1:04 PM COMPENSATOR) 06/18/2024 1:07 PM COMPENSATOR [facility] Report electronically signed by ANNY Monzon (ASCP) I verify that I have examined all relevant slides/materials for the specimen(s) and rendered or confirmed the diagnosis. 06/18/2024 1:07 PM COMPENSATOR [facility] Gross Description Received specimen in a ThinPrep vial. 06/18/2024 1:07 PM COMPENSATOR [facility] Pap Test Source Cervical/Endocervi noy 06/18/2024 1:07 PM COMPENSATOR [facility] Hormone Therapy/Contracep tives None/Not known 06/18/2024 1:07 PM COMPENSATOR [facility] Interpretation Cervical/Endocervi noy (ThinPrep): Satisfactory for Evaluation Negative for Intraepithelial Lesion or Malignancy High Risk HPV: Negative Negative for High Risk HPV by nucleic acid amplification. The following High Risk HPV types were not detected: 16, 18, 31, 33, 35, 39, 45, 51, 52, 56, 58, 59, 66, and 68. 06/18/2024 1:07 PM COMPENSATOR [facility] Thin Prep Vial (Cervix/Endocerv ix) 06/13/2024 1:04 PM COMPENSATOR 06/16/2024 7:38 AM COMPENSATOR us Micaela Ellington APRN, C.N.P., M.S.N. LAB PAP PATH DX ORDERABLES Final Result [facility] [address] [place] [address], [place] [facility] [id number] [place] [address] * HPV with Genotyping, PCR, ThinPrep (06/13/2024 1:04 PM COMPENSATOR) HPV with Genotyping, ThinPrep, PCR Negative Negative 06/16/2024 2:47 PM COMPENSATOR [facility] Comment: Negative for high risk HPV [...] correlated with patient's history, clinical presentation, and METAL TESTER cytology report. 06/13/2024 1:04 PM COMPENSATOR 06/16/2024 7:38 AM COMPENSATOR Micaela Ellington APRN, C.N.P., M.S.N. LAB MICROBIOLOGY - GENERAL ORDERABLES Final Result [facility] [address] [place] [address], [facility] [address] [address] * Comprehensive Metabolic Panel (06/02/2024 9:20 AM COMPENSATOR) Potassium, P 4.4 3.6 - 5.2 mmol/L 06/02/2024 9:47 AM COMPENSATOR NPRG Sodium, P 143 135 - 145 mmol/L 06/02/2024 9:47 AM COMPENSATOR NPRG Chloride, P 103 98 - 107 mmol/L 06/02/2024 9:47 AM COMPENSATOR NPRG Bicarbonate, P 28 22 - 29 mmol/L 06/02/2024 9:47 AM COMPENSATOR NPRG Anion Gap, P 12 7 - 15 06/02/2024 9:47 AM COMPENSATOR NPRG BUN (Blood Urea Nitrogen), P 16 6 - 21 mg/dL 06/02/2024 9:47 AM COMPENSATOR NPRG Creatinine 0.71 0.59 - 1.04 mg/dL 06/02/2024 9:47 AM COMPENSATOR NPRG Estimated GFR (eGFR) >90 >=60 mL/min/BS A 06/02/2024 9:47 AM COMPENSATOR NPRG Comment: Estimated GFR calculated using the 2020 CKD_EPI creatinine equation. Calcium, Total, P 9.8 8.6 - 10.0 mg/dL 06/02/2024 9:47 AM COMPENSATOR NPRG Glucose, P 113 70 - 140 mg/dL 06/02/2024 9:47 AM COMPENSATOR NPRG Protein, Total, P 7.3 6.3 - 7.9 g/dL 06/02/2024 9:47 AM COMPENSATOR NPRG Albumin, P 4.8 3.5 - 5.0 g/dL 06/02/2024 9:47 AM COMPENSATOR NPRG Aspartate Aminotransferase (AST), P 19 8 - 43 U/L 06/02/2024 9:47 AM COMPENSATOR NPRG Alkaline Phosphatase, P 82 35 - 104 U/L 06/02/2024 9:47 AM COMPENSATOR NPRG Alanine Aminotransferase (ALT), P 21 7 - 45 U/L 06/02/2024 9:47 AM COMPENSATOR NPRG Bilirubin, Total, P 0.3 0.0 - 1.2 mg/dL 06/02/2024 9:47 AM COMPENSATOR NPRG Blood (Blood, Venous) 06/02/2024 9:20 AM COMPENSATOR 06/02/2024 9:22 AM COMPENSATOR us Sadaf Go APRN, C.N.P., M.S.N. LAB BLOOD ADD -ON Final Result [facility] [address] [place] [address], [place] NPRG [facility] [address] [place] [address] * CT Abdomen Pelvis with IV Contrast (05/28/2024 8:15 AM COMPENSATOR) Anatomical Region Laterality Modality Abdomen, Pelvis, Abdominal R ST LOS, Abdominal ARZ LOS, Abdominal FLA LOS N/A Computed Tomography 05/28/2024 8:12 AM COMPENSATOR Impressions 05/28/2024 8:28 AM COMPENSATOR 1. Normal appearing appendix. 2. No acute intra-abdominal/pelvic pathology. 3. Findings that can be consistent with pelvic congestion syndrome, in the correct clinical context Narrative 05/28/2024 8:28 AM COMPENSATOR EXAM: CT ABDOMEN PELVIS WITH IV CONTRAST [...] enhancement. No evidence of hydronephrosis or hydroureter. No suspicious mass lesion. No renal or ureteral calculi. [...] or abscess. Aortoiliac atherosclerotic changes are observed. Procedure Note Gregor Lund M.D. - 05/28/2024 EXAM: CT ABDOMEN PELVIS WITH IV CONTRAST COMPARISON: None FINDINGS: Lung bases: Centrilobular emphysematous changes, greatest in the bilateralapices. No acute airspace opacity is observed. Liver: Area of focal fatty infiltration along the fissure for ligamentumteres. No suspicious hepatic masses Gallbladder and Biliary Tree: No evidence of cholelithiasis. No biliarydilatation. Spleen: No focal lesion is identified. No evidence of splenomegaly. Pancreas: Normal enhancement. No focal lesion or ductal dilatation. Adrenal glands: No focal lesion identified. Kidneys, ureters, and bladder: Normal enhancement. No evidence ofhydronephrosis or hydroureter. No suspicious mass lesion. No renal orureteral calculi. GI tract: Normal appearing appendix in the right lower quadrant on [id number] of series 3. No small bowel or colon obstruction or pneumatosis. 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 There isno free intraperitoneal air, free fluid, fluid collection, or abscess.Aortoiliac atherosclerotic changes are observed. IMPRESSION: 1. Normal appearing appendix. 2. No acute intra-abdominal/pelvic pathology. 3. Findings that can be consistent with pelvic congestion syndrome, in thecorrect clinical context us Sadaf Go APRN, C.N.P., M.S.N. IMG CT PROCED URES Final Result * US Pelvis Transvaginal and Transabdominal (05/27/2024 7:13 PM COMPENSATOR) Anatomical Region Laterality Modality Pelvis, Ultrasound RST LOS, Ultrasound ARZ LOS, Ultrasound FLA LOS N/A Ultrasound Impressions 05/27/2024 7:48 PM COMPENSATOR 1. Endometrial thickening up to 7 mm, abnormal in a postmenopausal patient. Recommend gynecologic consultation for further evaluation. 2. A few endometrial echogenic foci/calcifications that are similar to 04/10/2023 and may be sequela of prior infection/instrumentation. 3. The ovaries are unremarkable. Narrative 05/27/2024 7:48 PM COMPENSATOR EXAM: US PELVIS TRANSVAGINAL AND TRANSABDOMINAL COMPARISON: [...] Ovarian volume: 2 ml. Intraperitoneal Fluid: None. Procedure Note Chu Ferrer M.D. - 05/27/2024 EXAM: US PELVIS TRANSVAGINAL AND TRANSABDOMINAL COMPARISON: Pelvic MRI in 10/01/2023, pelvic ultrasound 04/10/2023. TECHNIQUE: Transabdominal and transvaginal. Transvaginal exam performed tobetter visualize the uterus and/or adnexal regions. FINDINGS: Uterus: 3.0 cm x 4.1 cm x 7.0 cm. Myometrium: Normal. Endometrium: A few endometrial echogenic foci/calcifications. Thickness: 7mm Right ovary: Dominant 1.7 cm follicle. Ovarian volume: 6 ml. Left ovary: Normal. Ovarian volume: 2 ml. Intraperitoneal Fluid: None. IMPRESSION: 1. Endometrial thickening up to 7 mm, abnormal in a postmenopausalpatient. Recommend gynecologic consultation for further evaluation. 2. A few endometrial echogenic foci/calcifications that are similar to04/10/2023 and may be sequela of prior infection/instrumentation. 3. The ovaries are unremarkable. us Sadaf oG APRN, C.N.P., M.S.N. IMG US PROCED URES Final Result * Urinalysis with Microscopic if Indicated (05/26/2024 4:07 PM COMPENSATOR) Source Urine, Urine, Midstream 05/26/2024 4:11 PM COMPENSATOR ERDG Clarity Clear Clear 05/26/2024 4:13 PM COMPENSATOR ERDG Color Yellow 05/26/2024 4:13 PM COMPENSATOR ERDG Comment: ----REFERENCE VALUE---- Colorless Yellow [place] Blood Negative Negative 05/26/2024 4:13 PM COMPENSATOR ERDG Nitrite Negative Negative 05/26/2024 4:13 PM COMPENSATOR ERDG Leukocyte Esterase Negative Negative 05/26/2024 4:13 PM COMPENSATOR ERDG Protein Negative mg/dL 05/26/2024 4:13 PM COMPENSATOR ERDG Comment: ----REFERENCE VALUE---- Negative Trace Glucose Negative Negative mg/dL 05/26/2024 4:13 PM COMPENSATOR ERDG Ketones, QI(U) Negative Negative mg/dL 05/26/2024 4:13 PM COMPENSATOR ERDG Bilirubin Negative Negative 05/26/2024 4:13 PM COMPENSATOR ERDG pH 6.5 5.0 - 8.0 05/26/2024 4:13 PM COMPENSATOR ERDG Specific Cyrus 1.020 1.001 - 1.035 05/26/2024 4:13 PM COMPENSATOR ERDG Urobilinogen 0.2 0.2 - 1.0 mg/dL 05/26/2024 4:13 PM COMPENSATOR ERDG Urine (Urine, Midstream) 05/26/2024 4:07 PM COMPENSATOR 05/26/2024 4:11 PM COMPENSATOR us Sadaf Go APRN C.N.P., M.S.N. LAB URINE ORD ERABLES Final Result [facility] [address] [place] [address], [facility] ERDG [facility] in [address] [place] [address] * EMG (05/21/2024 12:36 PM COMPENSATOR) 05/21/2024 1:15 PM COMPENSATOR Narrative EMG - 05/21/2024 2:34 PM COMPENSATOR Table formatting from the original result was not included. 21-May-2024 Electromyography Final Report Study Number: 1 EMG Director Data: Freddy Vizcarra 127 or [phone] Referred by: ANTIONETTE MATHIS (127 or [phone]) Referred for: SFN - LE Referral Code: RX: 335 SUMMARY: Prior to starting the procedure, the patient's identity was verified, pertinent available records were reviewed, the nature of the procedure was explained, the appropriate sites of the exam were confirmed directly with the patient, and a pre-procedure pause was performed for final verification of all of the above. Nerve conduction studies were normal. Needle examination revealed mildly enlarged, long duration, and mildly polyphasic motor unit potentials in predominantly L5 innervated muscles and a single distal S1 innervated muscle. CLINICAL INTERPRETATION: There is EMG evidence of a chronic L5-S1 radiculopathy with no active denervation. There is no evidence of a large fiber sensorimotor peripheral neuropathy. I have reviewed the findings of the examining physician and agree with the interpretation. Kaitlyn Snow/Preethi Vizcarra (127 or [phone])/SMB NERVE CONDUCTIONS Record Rep Normal Normal Distal Normal F-Wave F-Wave Temp Nerve Type Site Stim Side Amp Amp CV CV Lat Lat Lat Est ( C) Fibular Motor EDB L 4.9 (> 2.0) 46 (> 41) 5.1 (< 6.6) 52.4 51.6 29.6 Tibial Motor AH L 12.9 (> 4.0) 49 (> 40) 3.7 (< 6.1) 47.4 47.4 29.7 Medial plantar Sensory Ankle L 13 (> 7.0) (> 46) 3.0 (< 4.0) 29.6 NEEDLE EMG Ins Spont MUP Recruitment Duration Amplitude Phases Muscle Side Act Fib Fasc Normal Activ Reduced Rapid Long Short High Low % Turns Gluteus cheyenne L NL 0 0 NL Tensor fasciae latae L NL 0 0 + + Biceps femoris (long head) L NL 0 0 + + 25% Vastus medialis L NL 0 0 NL Gastrocnemius (medial head) L NL 0 0 + + 25% Tibialis anterior L NL 0 0 + + 25% This interpretation has been electronically signed: Freddy Vizcarra M.D. at 05/21/2024 2:32:49 PM COMPENSATOR Procedure Note Michael Vizcarra Jr., M.D. - 05/21/2024 21-May-2024 Electromyography Final Report Study Number: 1 EMG Director Data: Freddy Vizcarra 127 or [phone] Referred by: ANTIONETTE MATHIS (127 or [phone]) Referred for: SFN - LE Referral Code: RX: 335 SUMMARY: Prior to starting the procedure, the patient's identity wasverified, pertinent available records were reviewed, the nature of theprocedure was explained, the appropriate sites of the exam were confirmeddirectly with the patient, and a pre-procedure pause was performed forfinal verification of all of the above. Nerve conduction studies were normal. Needle examination revealed mildlyenlarged, long duration, and mildly polyphasic motor unit potentials inpredominantly L5 innervated muscles and a single distal S1 innervatedmuscle. CLINICAL INTERPRETATION: There is EMG evidence of a chronic L5-T3avpvngfimpcah with no active denervation. There is no evidence of a largefiber sensorimotor peripheral neuropathy. I have reviewed the findings of the examining physician and agree with theinterpretation. Kaitlyn Snow/Preethi Vizcarra (127 or [phone])/SMB NERVE CONDUCTIONS Record Rep Normal Normal Distal Normal F-Wave F-Wave Temp Nerve Type Site Stim Side Amp Amp CV CV Lat Lat Lat Est ( C) Fibular Motor EDB L 4.9 (> 2.0) 46 (> 41) 5.1 (< 6.6) 52.4 51.6 29.6 Tibial Motor AH L 12.9 (> 4.0) 49 (> 40) 3.7 (< 6.1) 47.4 47.4 29.7 Medial plantar Sensory Ankle L 13 (> 7.0) (> 46) 3.0 (< 4.0) 29.6 NEEDLE EMG Ins Spont MUP Recruitment Duration Amplitude Phases Muscle Side Act Fib Fasc Normal Activ Reduced Rapid Long Short High Low %Turns Gluteus cheyenne L NL 0 0 NL Tensor fasciae latae L NL 0 0 + + Biceps femoris (long head) L NL 0 0 + + 25% Vastus medialis L NL 0 0 NL Gastrocnemius (medial head) L NL 0 0 + + 25% Tibialis anterior L NL 0 0 + + 25% This interpretation has been electronically signed: Freddy Vizcarra M.D. at 05/21/2024 2:32:49 PM COMPENSATOR Antionette Mathis M.D. NEUROLOGY ORDERABLES Ed ited Result - Final EMG * Thermoregulatory sweat test (05/21/2024 10:35 AM COMPENSATOR) 05/21/2024 9:00 AM COMPENSATOR Impressions JAKE AUTO - 05/21/2024 2:03 PM COMPENSATOR There is hypohidrosis of the bilateral legs. These findings can be seen in limited autonomic (sudomotor) neuropathies, however, the clear demarcation between ankle and distal garcia raises the question of local skin factors/prior compression. The light sweating of the thighs can be a normal variant. Sweating in purple shaded area RESULTS: Starting Oral Temp ( C): 36.3 Ending Oral Temp ( C): 37.8 Oral Temp Difference ( C): 1.5 % Anhidrosis: 10.8 Distribution: Multifocal Hyperhidrosis: No Narrative MC JAKE AUTO - 05/21/2024 2:03 PM COMPENSATOR Table formatting from the original result was not included. Images from the original result were not included. FINAL REPORT Thermoregulatory Sweat Test 6 Age: 49 Location: [facility] Lab #: [id number] JOELBRITTNICHALO Sex: F Order ID: [id number] Date: 05/21/2024 : 1975 Autonomic Director Data: Zulema Jalloh M.D. ([phone]) us Antionette Mathis M.D. NEUROLOGY ORDERABLES Fi nal Result JAKE AUTO * SS-A and SS-B Antibodies, IgG (05/16/2024 11:59 AM COMPENSATOR) Pathologist [facility] SS-A/Ro Ab, IgG, S <0.2 <1.0 (Negative) U 05/16/2024 5:01 PM COMPENSATOR [facility] SS-B/La Ab, IgG, S <0.2 <1.0 (Negative) U 05/16/2024 5:01 PM COMPENSATOR [facility] Blood (Blood, Venous) 05/16/2024 11:59 AM COMPENSATOR 05/16/2024 3:54 PM COMPENSATOR us Antionette Mathis M.D. LAB BLOOD ADD-ON Final Result [facility] [address] [place] [address] [facility] [address] [place] [address] * Cryopreservation for Molecular Genetic Studies (05/16/2024 11:59 AM COMPENSATOR) Comment A DNA specimen has been stored for future genomic studies. This specimen has been stored at the request of the ordering physician for anticipated future testing. In some instances, a portion of the specimen may remain available (by consent) for use by the individual and/or family. This is not a DNA banking service. If snf, guaranteed specimen storage is required, DNA banking should be considered. The Genomic Extraction Core extracted DNA. DNA Volume (microliters): 500+ Please review the following table to determine the possible number of tests that can be added for send out testing. DNA (ul) Possible Send Outs (~100 ul) <100 Recommend Redraw 100 1 250 2 500 5 05/19/2024 1:06 PM COMPENSATOR DTL Specimen WB Whole Blood 05/19/2024 1:06 PM COMPENSATOR DTL Released By JENNIFER CRISTINA 05/19/2024 1:06 PM COMPENSATOR DTL Blood (Blood, Peripheral Draw) 05/16/2024 11:59 AM COMPENSATOR 05/16/2024 12:49 PM COMPENSATOR Antionette Mathis M.D. LAB GENETIC TESTING Fin al Result Performing Organization Address City/[facility]/ZIP Co de Phone Number [facility] [address] [place] [address], [facility] DT [address] [address] * Hemoglobin A1c (05/16/2024 11:59 AM COMPENSATOR) Hemoglobin A1c, B 5.5 4.0 - 5.6 % 05/16/2024 1:00 PM COMPENSATOR DTL Blood (Blood, Venous) 05/16/2024 11:59 AM COMPENSATOR 05/16/2024 12:40 PM COMPENSATOR us Antionette Mathis M.D. LAB BLOOD ADD-ON Final Result [facility] [address] [place] [address], [facility] [address] [place] [address] * [facility] PGx Test + MTHFR - Sent Out Lab (04/28/2024 10:58 AM CDT) [facility] Comments See Comment 05/05/2024 9:11 AM COMPENSATOR OOMI Comment: General Lab Comments: Interpretive Guidance - Hemizygous males and homozygous females are reported as HTR2C CC. CY phenotype Rapid metabolizer 05/05/2024 9:11 AM COMPENSATOR OOMI CY genotype *1F/*1F 9:11 AM COMPENSATOR OOMI Comment: Increased enzyme activity is likely based on the genotype results. This activity is more than a normal metabolizer, but less than an ultrarapid metabolizer. The metabolism of the medication affected by this gene is predicted to be increased. CYP2B6 phenotype Intermediate metabolizer 05/05/2024 9:11 AM COMPENSATOR OOMI CYP2B6 genotype *1/*6 9:11 AM COMPENSATOR OOMI Comment: Decreased enzyme activity is likely based on the genotype results. Decreased metabolism of the medication affected by this gene is predicted. CYP2C9 phenotype Intermediate metabolizer 05/05/2024 9:11 AM COMPENSATOR OOMI CYP2C9 genotype *1/*3 9:11 AM COMPENSATOR OOMI Comment: Decreased enzyme activity is likely based on the genotype results. Decreased metabolism of the medication affected by this gene is predicted. CYP2C cluster phenotype Normal 05/05/2024 9:11 AM COMPENSATOR OOMI CYP2C cluster genotype [id number] GG 05/05/2024 9:11 AM COMPENSATOR OOMI Comment: CYP2C [id number] homozygous wild-type genotype consistent with normal clearance of a certain medication, independent of the impact of CYP2C9*2 and *3. CYP2C [id number], together with CYP4F2, CYP2C9, and VKORC1, may affect treatment management of a certain medication. EDH2L88 phenotype Rapid metabolizer 05/05/2024 9:11 AM COMPENSATOR OOMI [id number] genotype *1/*17 05/05/20 24 9:11 AM COMPENSATOR OOMI Comment: Increased enzyme activity is likely based on the genotype results. This activity is more than a normal metabolizer, but less than an ultrarapid metabolizer. The metabolism of the medication affected by this gene is predicted to be increased. CYP2D6 phenotype Normal metabolizer 05/05/2024 9:11 AM COMPENSATOR OOMI CYP2D6 genotype *1/*41 9:11 AM COMPENSATOR OOMI Comment: Fully functional enzyme activity is likely based on the genotype results. Normal metabolism of the medication affected by this gene is predicted. CY phenotype Normal metabolizer 05/05/2024 9:11 AM COMPENSATOR OOMI CY genotype *1/*1 9:11 AM COMPENSATOR OOMI Comment: Fully functional enzyme activity is likely based on the genotype results. Normal metabolism of the medication affected by this gene is predicted. CY phenotype Poor metabolizer 05/05/2024 9:11 AM COMPENSATOR OOMI CY genotype *3/*3 9:11 AM COMPENSATOR OOMI Comment: This CY genotype is associated with the phenotype most prevalent in studies used to define standard dosing guidelines. CYP4F2 phenotype Reduced activity 05/05/2024 9:11 AM COMPENSATOR OOMI CYP4F2 genotype *1/*3 9:11 AM COMPENSATOR OOMI Comment: Genotype consistent with reduced activity of the CYP4F2 enzyme, which catalyzes the metabolism of vitamin K, in counterpoint to the activity of VKORC1. Impact of this variant has not been observed in individuals of [place] ancestry. CYP4F2, together with CYP2C9, VKORC1, and a variant in CYP2C Cluster, may affect treatment management of a certain medication. COMT phenotype High activity 024 9:11 AM COMPENSATOR OOMI COMT genotype [id number] GG 05/05/2024 9:11 AM COMPENSATOR OOMI Comment: The GG (Josette/Josette) genotype is associated with higher COMT activity than AA (Met/Met) or GA (Josette/Met) genotypes. DPYD phenotype Normal metabolizer 05/05/2024 9:11 AM COMPENSATOR OOMI DPYD genotype *1/*1 05/05/2024 9:11 AM COMPENSATOR OOMI Comment: DPD activity score= 2. This genotype and activity score is consistent with a normal metabolizer phenotype. 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 F2 phenotype Normal risk 05/05/2024 9:11 AM COMPENSATOR OOMI F2 genotype [id number] GG 05/05/2024 9:11 AM COMPENSATOR OOMI Comment: Normal risk of thrombosis associated with Factor II (prothrombin). Other genetic and clinical factors contribute to the risk for thrombosis. F5 phenotype Normal risk 05/05/2024 9:11 AM COMPENSATOR OOMI F5 genotype [id number] GG 05/05/2024 9:11 AM COMPENSATOR OOMI Comment: Normal risk of thrombosis associated with Factor V. Other genetic and clinical factors contribute to the risk for thrombosis. GRIK4 phenotype Normal receptor function 05/05/2024 9:11 AM COMPENSATOR OOMI GRIK4 genotype [id number] CC 05/05/20 9:11 AM COMPENSATOR OOMI Comment: Glutamate ionotropic receptor kainate type subunit 4 (GRIK4) genotype is consistent with normal receptor function. HLA-A phenotype Normal risk 05/05/20 9:11 AM COMPENSATOR OOMI HLA-A genotype Negative 05/05/2024 9:11 AM COMPENSATOR OOMI Comment: Negative for the presence of the HLA-A*31:01 allele. Normal risk of hypersensitivity induced by certain medications, and possibly others of structural similarity. Hypersensitivity and severe cutaneous reactions may occur regardless of the presence of the HLA-A*31:01 allele, in particular the presence of the HLA-B*15:02 allele is associated with severe cutaneous reactions induced by certain medications. HLA-B phenotype Normal risk 05/05/20 9:11 AM COMPENSATOR OOMI HLA-B genotype Negative 05/05/2024 9:11 AM COMPENSATOR OOMI Comment: Negative for presence of the HLA-B*15:02, HLA-B*57:01, and HLA-B*58:01 alleles. Normal risk of hypersensitivity, severe cutaneous reactions, and severe hepatotoxicity induced by certain medications. Hypersensitivity, severe cutaneous reactions, and severe hepatotoxicity may occur regardless of the presence of HLA-B*15:02, HLA-B*57:01, or HLA-B*58:01 alleles. In particular, the presence of the HLA-A*31:01 allele is associated with hypersensitivity reactions induced by a certain medication, and possibly other medications of structural similarity. HTR2A phenotype Variant absent 05/05 9:11 AM COMPENSATOR OOMI HTR2A genotype [id number] TT 05/05/20 9:11 AM COMPENSATOR OOMI Comment: The TT genotype is the wildtype genotype associated with intron 2 of the HTR2A gene. HTR2C phenotype Normal receptor expression 05/05/2024 9:11 AM COMPENSATOR OOMI HTR2C genotype [id number] CC 05/05/20 9:11 AM COMPENSATOR OOMI Comment: This genotype is associated with normal transcriptional activity of the HTR2C gene. IL28B (IFNL4) phenotype Normal 05/05/2024 9:11 AM COMPENSATOR OOMI IL28B (IFNL4) genotype [id number] CC 05/05/2024 9:11 AM COMPENSATOR OOMI Comment: Genotype consistent with a normal likelihood of hepatitis C sustained virologic response (SVR) with certain treatment options. MTHFR phenotype Decreased activity 05/05/2024 9:11 AM COMPENSATOR OOMI MTHFR genotype [id number] AA, [id number] CT 05/05/2024 9:11 AM COMPENSATOR OOMI Comment: This MTHFR genotype is associated with decreased enzyme activity. NUDT15 phenotype Normal metabolizer 05/05/2024 9:11 AM COMPENSATOR OOMI NUDT15 genotype *1/*1 9:11 AM COMPENSATOR OOMI Comment: NUDT15 genotype is consistent with normal enzyme activity and is not associated with an increased risk of thiopurine-induced toxicities. Toxicities with thiopurines can occur due to impaired TPMT activity independently from the NUDT15 activity. OPRM1 phenotype Variant absent 05/05 9:11 AM COMPENSATOR OOMI OPRM1 genotype [id number] AA 05/05/20 9:11 AM COMPENSATOR OOMI Comment: The AA genotype (or Asn/Asn isoform) is the wildtype genotype associated with the mu-1 opioid receptor. TSMB8V9 phenotype Normal function 9:11 AM COMPENSATOR OOMI SJEQ6G2 genotype *1/*1 05/05/20 9:11 AM COMPENSATOR OOMI Comment: [id number] genotype consistent with normal function of the USTT3X8 transporter. TPMT phenotype Normal metabolizer 05/05/2024 9:11 AM COMPENSATOR OOMI TPMT genotype *1/*1 05/05/2024 9:11 AM COMPENSATOR OOMI Comment: TPMT genotype is consistent with a normal metabolizer phenotype and is not associated with an increased risk of thiopurine-induced toxicities. Toxicities with thiopurines can occur due to impaired NUDT15 activity independently from the TPMT activity. UGT1A1 phenotype Normal metabolizer 05/05/2024 9:11 AM COMPENSATOR OOMI UGT1A1 genotype *1/*1 9:11 AM COMPENSATOR OOMI Comment: Genotype consistent with fully functional UGT1A1 enzyme activity, or a normal metabolizer phenotype. VKORC1 phenotype Low activity 2023 9:11 AM COMPENSATOR OOMI VKORC1 genotype [id number] AA 024 9:11 AM COMPENSATOR OOMI Comment: Genotype consistent with low activity of the vitamin K epoxide reductase enzyme, associated with the c.-1639AA ([id number]) variant. VKORC1, together with CYP2C9, CYP4F2, and a variant in CYP2C Cluster, may affect treatment management of a certain medication. SLC6A4 phenotype Typical to reduced expression 05/05/2024 9:11 AM COMPENSATOR OOMI SLC6A4 genotype L/S (La/Sa) 05/05/20 9:11 AM COMPENSATOR OOMI Comment: Genotype consistent with a typical to reduced expression of the SLC6A4 transporter compared to the L/L (La/La) genotype. This genotype was shown to exhibit different phenotypes in East populations, as opposite outcomes were observed for this genotype in East populations when compared to populations. Laboratory methods See Comment 05/05 9:11 AM COMPENSATOR OOMI Comment: This test was developed and its performance characteristics determined by [facility], a clinical laboratory located at [address] [place] [address]. These tests have not been cleared or approved by the U.S. Food and Drug Administration. The FDA does not require this test to go through premarket FDA review. [employer] is certified under CLIA-88 and accredited by the [employer] as qualified to perform high-complexity testing. This test is used for clinical purposes and should not be regarded as investigational or for research. Genomic DNA was analyzed by PCR-based [employer] TaqMan(R) and/or TVtripQ(R) probe-based methods to interrogate the variant locations listed in the Test results table above. In addition, CYP2D6 copy number status was assessed at sites within the promoter, intron 2, intron 6, and exon 9. The test detects CYP2D6 deletions, duplications/multiplications, and hybrid alleles, but cannot differentiate duplications in the presence of a deletion. Haplotypes, or combinations of inherited variants on a chromosome, are annotated according to legacy nomenclature for the genes and alleles in the table below. Less frequent haplotypes or novel alleles may be reported when appropriate. CY - *1C, *1D, *1E, *1F, *1J, *1K, *1L, *1V, *1W CYP2B6 - *4, *5, *6, *7, *9, *16, *18 CYP2C9 - *2, *3, *4, *5, *6, *8, *11 [id number] - *2, *3, *4, *4B, *10, *17 CYP2D6 - *2, *2A, *3, *4, *4M, *4N, *5, *6, *6C, *7, *8, *9, *10, *11, *12, *13, *14, *15, *17, *18, *19, *29, *31, *34, *35, *36, *39, 41, *42, *59, *63, *64, *68, *69, *70, *91, *109, *114 CY - *1B, *22 CY - *3, *6, *7 CYP4F2 - *3 DPYD - *2A, *13 HSSC9V2 - *5, *15, *17, *21 TPMT - *2, *3A, *3B, *3C, *4 UGT1A1 - *6, *28 The test does not detect all known and unknown variations in the genes tested, nor does absence of a detectable variant (designated as *1 for genes encoding drug metabolizing enzymes) rule out the presence of other, non-detected variants. As with other common SNP genotyping techniques, these assays cannot differentiate between the maternal and paternal chromosomes. In cases where observed variants are associated with more than one haplotype, [facility] infers and reports the most likely diplotype based on published allele frequency and/or ethnicity data. Inferences with potential clinical impact are reported in the Report and laboratory comments section. The variant detection methods validated by [employer] provide >99.9% accuracy; however, PCR may be subject to general interference by factors such as reaction inhibitors and low quality or quantity of extracted DNA. When present, these interferents typically yield no result rather than an inaccurate one. Very infrequent mutations or polymorphisms occurring in primer- or probe-binding regions may also affect testing and could produce an erroneous result or assay failure. Variant locations tested by the assay but not assigned a genotype call are reported as No Call. Test results and clinical interpretation may be inaccurate for individuals who have undergone or are receiving non-autologous blood transfusions, tissue, and/or organ transplant therapies. Although extremely rare, results could also be impacted by other factors not addressed above, such as laboratory error. Due to the complexity of interpreting some genetic test results, such as those that may carry a probabilistic risk of disease, patients and providers should consider the benefits of consulting with a trained genetic counseling professional, physician, or pharmacogenomic specialist. Swab (Mouth) 04/28/2024 10:5 8 AM CDT 04/29/2024 8:56 AM CDT us Tad Lo APRNN.P., M.S.N. LAB GENETIC T ESTING Final Result [facility] [address], [address] [place] [id number] OOMI [facility] [address], [address] [place] [id number] * BI Breast Screening Bilateral with Tomosynthesis (03/06/2024 1:03 PM CDT) Anatomical Region Laterality Modality Breast, Breast Imaging RST L OS, Breast Imaging ARZ LOS, Breast Imaging FLA LOS Bilateral Mammography Impressions 03/06/2024 4:04 PM CDT Benign. RECOMMENDATION: Annual Screening Mammogram ASSESSMENT: BI-RADS: 2: Benign. Narrative 03/06/2024 4:04 PM CDT EXAM: BI BREAST SCREENING BILATERAL WITH TOMOSYNTHESIS Current study was evaluated with a Computer Aided Detection (CAD) system. INDICATION: Screening mammogram. COMPARISON: Prior exam(s) were available and reviewed for comparison. DENSITY: c. The breast(s) are heterogeneously dense, which may obscure small masses. FINDINGS: No findings of malignancy. No significant change since prior exam. Procedure Note Alan Rogers M.D. - 03/06/2024 EXAM: BI BREAST SCREENING BILATERAL WITH TOMOSYNTHESIS Current study was evaluated with a Computer Aided Detection (CAD) system. INDICATION: Screening mammogram. COMPARISON: Prior exam(s) were available and reviewed for comparison. DENSITY: c. The breast(s) are heterogeneously dense, which may obscuresmall masses. FINDINGS: No findings of malignancy. No significant change since priorexam. IMPRESSION: Benign. RECOMMENDATION: Annual Screening Mammogram ASSESSMENT: BI-RADS: 2: Benign. Sadaf Go APRN, C.N.P., M.S.N. IMG BI PROCED URES Final Result * (ABNORMAL) Lipid Panel (02/21/2023 11:04 AM CDT) Triglycerides 89 mg/dL 02/21/2023 3:42 PM CDT [facility] Comment: ----REFERENCE VALUE---- Normal: <150 mg/dL Borderline High: 150-199 mg/dL High: 200-499 mg/dL Very High: > or =500 mg/dL Cholesterol, Total 213(H) mg/dL 2022 3:42 PM CDT MKTO Comment: ----REFERENCE VALUE---- Desirable: < 200 mg/dL Borderline High: 200 - 239 mg/dL High: > or = 240 mg/dL Cholesterol, LDL, Calculated 132(H) mg/dL 02/21/2023 3:42 PM CDT MKTO Comment: ----REFERENCE VALUE---- Desirable: <100 mg/dL Above Desirable: 100-129 mg/dL Borderline High: 130-159 mg/dL High: 160-189 mg/dL Very High: >=190 mg/dL ----ADDITIONAL INFORMATION---- LDL cholesterol calculated using the Dolan/NIH equation. Cholesterol, HDL 65 >=50 mg/dL 02/22/20 3:42 PM CDT MKTO Cholesterol, Non-HDL, Calculated 148 mg/dL 02/21/2023 3:42 PM CDT MKTO Comment: ----REFERENCE VALUE---- Desirable: <130 mg/dL Above Desirable: 130-159 mg/dL Borderline High: 160-189 mg/dL High: 190-219 mg/dL Very High: > or =220 mg/dL Fasting (8 HR or more) yes 02/21/2023 2:29 PM CDT MKTO Blood (Blood, Venous) 02/21/2023 11:04 AM CDT 02/21/2023 2:29 PM CDT Sadaf Go APRN, C.N.P., M.S.N. LAB BLOOD ADD -ON Final Result [facility] [address] [place] [address], [facility] MKTO [facility] [place] [address] * Cologuard-Sent Out Lab (12/22/2021 6:28 AM CDT) Result Negative Negative 12/28/2021 11:36 PM CDT [facility] Comment: NEGATIVE TEST RESULT. A negative Cologuard result indicates a low likelihood that a colorectal cancer (CRC) or advanced adenoma (adenomatous polyps with more advanced pre-malignant features) is present. The chance that a person with a negative Cologuard test has a colorectal cancer is less than 1 in 1500 (negative predictive value >99.9%) or has an advanced adenoma is less than 5.3% (negative predictive value 94.7%). These data are based on a prospective cross-sectional study of 10,000 individuals at average risk for colorectal cancer who were screened with both Cologuard and colonoscopy. (Suzy Macdonald al, N Engl J Med 2014;370(14):1463-7662) The normal value (reference range) for this assay is negative. COLOGUARD RE-SCREENING RECOMMENDATION: Periodic colorectal cancer screening is an important part of preventive healthcare for asymptomatic individuals at average risk for colorectal cancer. Following a negative Cologuard result, the [employer] Cancer Society and U.S. Multi-Society Task Force screening guidelines recommend a Cologuard re-screening interval of 3 years. References: [employer] Cancer Society Guideline for Colorectal Cancer Screening: https://www.cancer.org/cancer/jbhwz-unwkvs-gdgpzq/detection- diagnosis-staging/acs-recommendations.html.; Sherman DK, Comfort MERRITT, Panchito POP, Colorectal Cancer Screening: Recommendations for Physicians and Patients from the U.S. Multi-Society Task Force on Colorectal Cancer Screening , Am J Gastroenterology 2017; 112:7735-1149. TEST DESCRIPTION: Composite algorithmic analysis of stool DNA-biomarkers with hemoglobin immunoassay. Quantitative values of individual biomarkers are not reportable and are not associated with individual biomarker result reference ranges. Cologuard is intended for colorectal cancer screening of adults of either sex, 45 years or older, who are at average-risk for colorectal cancer (CRC). Cologuard has been approved for use by the U.[place]. FDA. The performance of Cologuard was established in a cross sectional study of average-risk adults aged 50-84. Cologuard performance in patients ages 45 to 49 years was estimated by sub-group analysis of near-age groups. Colonoscopies performed for a positive result may find as the most clinically significant lesion: colorectal cancer [4.0%], advanced adenoma (including sessile serrated polyps greater than or equal to 1cm diameter) [20%] or non- advanced adenoma [31%]; or no colorectal neoplasia [45%]. These estimates are derived from a prospective cross-sectional screening study of 10,000 individuals at average risk for colorectal cancer who were screened with both Cologuard and colonoscopy. (Suzy Macdonald al, N Engl J Med 2014;370(14):9329-9582.) Cologuard may produce a false negative or false positive result (no colorectal cancer or precancerous polyp present at colonoscopy follow up). A negative Cologuard test result does not guarantee the absence of CRC or advanced adenoma (pre-cancer). The current Cologuard screening interval is every 3 years. ([employer] Cancer Society and U.S. Multi-Society Task Force). Cologuard performance data in a 10,000 patient pivotal study using colonoscopy as the reference method can be accessed at the following location: www.ClickFox.Faveeo/results. Additional description of the Cologuard test process, warnings and precautions can be found at www.[email or web address].comrd.com. Stool (Stool) 12/22/2021 6:2 8 AM CDT 12/23/2021 8:35 PM CDT us Candice Corado M.D. LAB BODY FLUIDS AND STOOLS ORD ERABLES Final Result [facility] [address] [place] [address] EXLI [email or web address] [address] [facility], [address] [place] [address] from Last 3 Months or Most Recently Relevant to Health Maintenance Insurance [employer] Care Teams Claims Adjuster Relationship Specialty Start Date End Date Sadaf Go APRN, C.N.P., M.S.N. [address] [place] [place] [id number] PCP - General Family Medicine 08/08/19
--- OUTSIDE RECORDS SUMMARY | 2024-07-27 14:29 | XMS_ITS | Clinical Summary ---
Author Organization [facility] Address [address] [place] [id number] Care Team Providers Care Diesel Technology Instructor Name Role Phone Sadaf Go APRN C.N.Lanre, M.S.N. Primary Care Provider Source Comments Patient records contain information from all sites at [facility]. For routine questions regarding patient records, call [phone] during business hours, M-F 8:00 AM - 5:00 PM Central Time. Record requests for emergency care only can be directed to [phone] at any time.[facility] Allergies Active Allergy Reactions Criticality Noted Date [...] hours prior to report time. 4000 mL Active Additional Information Patient not taking.Reported on 06/13/2024 polyethylene glycol (Miralax) 17 gram/dose oral powder Mix 1 heaping tablespoon of MiraLAX into 4 to 8 oz of clear beverage and drink daily starting 5 to 7 days prior to procedure through the day before the procedure. 238 g Active Additional Information Patient not taking.Reported on [...] PPD in 06/2008. Work up at at [facility] was negative and extensive -- PPD with 0 induration; negative sputum culture, microbacaterial QuantiFERON gold test, amplified direct MTbc RNA x2, sputum staining. 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 Anesthesia Of Skin 06/22/2010 9 Encounters Date Type Department Care Team Description 07/16/2024 12:10 PM JEWELRY MANAGER - 07/16/2024 11:59 PM JEWELRY MANAGER Hospital Encounter Department of Laboratory Medicine and Pathology, [facility], in [place], [place] [address] [place] [address] Servando Garcias M.D. Paresthesia Discharge Disposition: Home or Self Care 07/16/2024 10:00 AM JEWELRY MANAGER Comprehensive Visit Department of Neurology in [place], [place] [address] [place] [address] Servando Garcias M.D. Paresthesia (Primary Dx); Neuropathy Peripheral 06/16/2024 9:29 AM JEWELRY MANAGER - 06/16/2024 11:59 PM JEWELRY MANAGER Hospital Encounter Department of Vascular Medicine in [place], [place] [address] [place] [address] Jaciel King M.D. Pain Leg Bilateral Discharge Disposition: Home or Self Care 06/16/2024 6:43 AM JEWELRY MANAGER - 06/16/2024 9:28 AM JEWELRY MANAGER Hospital Encounter Department of Neurology in [place], [place] [address] [place] [address] Antionette Mathis M.D. Neuropathy Peripheral Discharge Disposition: Home or Self Care 06/16/2024 Clinical Communication [facility] in [address] [place] [address] Sadaf Go APRN, C.N.P., M.S.N. 06/13/2024 12:00 PM JEWELRY MANAGER Comprehensive Visit Department of Obstetrics and Gynecology in [address] [phone] Micaela Ellington APRN, C.N.P., M.S.N. Perimenopause (Primary Dx); Pelvic Congestion Syndrome; Pap Smear Examination Discharge Disposition: Home or Self Care 06/02/2024 9:15 AM JEWELRY MANAGER - 06/02/2024 11:59 PM JEWELRY MANAGER Hospital Encounter Department of Laboratory Medicine in [address] [phone] Sadaf Go APRN, C.N.P., M.S.N. Elevated Blood Pressure Discharge Disposition: Home or Self Care 05/28/2024 7:42 AM JEWELRY MANAGER - 05/28/2024 11:59 PM JEWELRY MANAGER Hospital Encounter Department of Radiology in [address] [phone] Sadaf Go APRN, C.N.P., M.S.N. Bloating Abdominal Discharge Disposition: Home or Self Care 05/28/2024 Orders Only [facility] in [place], [place] [address] [place] [address] Sadaf Go APRN, C.N.P., M.S.N. Amenorrhea (Primary Dx); Bleeding Postmenopausal; Pelvic Congestion Syndrome 05/27/2024 6:42 PM JEWELRY MANAGER - 05/27/2024 11:59 PM JEWELRY MANAGER Hospital Encounter Department of Radiology in [place], [place] [address] [place] [address] Sadaf Go APRN, C.N.P., M.S.N. Bleeding Postmenopausal Discharge Disposition: Home or Self Care 05/26/2024 4:30 PM JEWELRY MANAGER - 05/26/2024 11:59 PM JEWELRY MANAGER Hospital Encounter Department of Laboratory Medicine, [facility], in [place], [place] [address] [place] [address] Sadaf Go APRN, C.N.P., M.S.N. Bleeding Postmenopausal; Bloating Abdominal Discharge Disposition: Home or Self Care 05/26/2024 4:04 PM JEWELRY MANAGER - 05/26/2024 4:29 PM JEWELRY MANAGER Hospital Encounter Department of Laboratory Medicine, [facility], in [place], [place] [address] [place] [address] Sadaf Go APRN, C.N.P., M.S.N. Bleeding Postmenopausal; Bloating Abdominal Discharge Disposition: Home or Self Care 05/26/2024 3:00 PM JEWELRY MANAGER Office Visit [facility] in [place], [place] [address] [place] [address] Sadaf Go APRN, C.N.P., M.S.N. Other Chronic Pain (Primary Dx); Neuropathy Fiber Small; Pain Leg Bilateral; Bleeding Postmenopausal; Bloating Abdominal; Screening Colon Cancer Average Risk; Livedo Reticularis; Other Specified Anxiety Disorders; Tobacco Use 05/26/2024 Clinical Communication [facility] in [place], [place] [address] [place] [address] Sadaf Go APRN, C.NDago., M.S.N. 05/21/2024 12:36 PM JEWELRY MANAGER - 05/21/2024 11:59 PM JEWELRY MANAGER Hospital Encounter Department of Neurology in [place], [place] [address] [place] [address] Antionette Mathis M.D. Neuropathy Peripheral Discharge Disposition: Home or Self Care 05/21/2024 8:36 AM JEWELRY MANAGER - 05/21/2024 12:35 PM JEWELRY MANAGER Hospital Encounter Department of Neurology in [place], [place] [address] [place] [address] Antionette Mathis M.D. Neuropathy Peripheral Discharge Disposition: Home or Self Care 05/20/2024 2:30 PM JEWELRY MANAGER Comprehensive Visit Department of Vascular Medicine in [place], [place] [address] [place] [address] Jaciel King M.D. Neuropathy Fiber Small (Primary Dx); Pain Leg Bilateral; Tobacco Use 05/20/2024 Orders Only Department of Vascular Medicine in [place], [place] [address] [place] [address] Jaciel King M.D. Pain Leg Bilateral (Primary Dx) 05/19/2024 9:30 AM JEWELRY MANAGER Office Visit Department of Family Medicine in [place], [place] [address] [address] [place] [phone] Sadaf Go APRN, Jairo.N.P., M.S.N. Kamryn Ratliff, Pharm.D., BCACP, R.Ph. Neuropathy Fiber Small [G62.89] (Primary Dx) 05/16/2024 11:46 AM JEWELRY MANAGER - 05/16/2024 11:59 PM JEWELRY MANAGER Hospital Encounter Department of Laboratory Medicine and Pathology, [facility], in [place], [place] [address] [place] [address] Antionette Mathis M.D. Neuropathy Peripheral Discharge Disposition: Home or Self Care 05/16/2024 11:46 AM JEWELRY MANAGER - 05/16/2024 11:59 PM JEWELRY MANAGER Hospital Encounter Department of Laboratory Medicine and Pathology, [facility] in [place], [place] [address] [place] [address] Antionette Mathis M.D. Neuropathy Peripheral Discharge Disposition: Home or Self Care 05/16/2024 11:00 AM JEWELRY MANAGER Comprehensive Visit Department of Medical Genetics in [place], [place] [address] [place] [phone] Antionette Mathis M.D. Neuropathy Peripheral (Primary Dx); Other Atherosclerosis Of Ak Chin Arteries Of Extremities Bilateral Legs (HCC) 05/13/2024 8:00 AM JEWELRY MANAGER Clinical Support Department of Medical Genetics in [place], [place] [address] [place] [address] Sadaf Go APRN, C.N.P., M.S.N. Marta Vela Livedo Reticularis; Neuropathy Fiber Small 04/29/2024 1:30 PM CDT Telemedicine Department of Pain Medicine in [place], [place] [address] [place] [phone] Benjamin Bell M.D., M.B.A. Pain Back (Primary Dx) Discharge Disposition: Home or Self Care 04/28/2024 10:50 AM CDT - 04/28/2024 11:59 PM CDT Hospital Encounter Department of Laboratory Medicine, [facility], in [place], [place] [address] [place] [address] Sadaf Go APRN, C.N.P., M.S.N. Livedo Reticularis; Neuropathy Fiber Small Discharge Disposition: Home or Self Care 04/28/2024 10:00 AM CDT Office Visit [facility] in [place], [place] [address] [place] [address] Sadaf Go APRN, C.N.P., M.S.N. 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) from Last 3 Months Immunizations Immunization Administration Dates Next Due Influenza TIV (IM) 03/22/2009,05/15/2008, 005 Influenza, Seasonal, Injectable 03/22/2009,05/15,04/13/2005 Influenza, Unspecified 03/22/2009,05/15/2008, PCV20 12/05/2021 PPD Test 12/27/2011 Tdap 05/25/2017,08/22/2007 influenza vaccine quad (FLUZ ONE/FLUARIX) (6 months and older)(PF) 05/30/2017,08/03/2016 Family History Medical History Relation Name Comments Single kidney Brother Vladimri found this out at 21 Skin cancer Brother Vladimir non-melanoma Aortic stenosis Father Don Arthritis Father Don Clotting disorder Father Don Hypertension Father Don Kidney disease Father Don stage [address] Stroke Father Don 2018af ter knee surgerystroke, 60 Transient ischemic attack Father Don anthro scolastic disease Father Don d. Autoimmune Father's Sister 2 unsure of details ADD / ADHD Grandson genetic testing Maternal Cousin 2 Cockayn e syndrome genetic testing Maternal Cousin 3 negativ e for cockayne syndrome Heart attack Maternal Grandfather d. Heart attack Maternal Grandmother Aidee 55. 57 Lung cancer Maternal Grandmother Aidee d.2x Anxiety disorder Mother Vilma Arthritis Mother Vilma Bipolar Mother Vilma Coronary artery disease Mother Vilma trip le bypass Dementia Mother Vilma Depression Mother Vilma Hyperlipidemia Mother Vilma Hypertension Mother Vilma Kidney disease Mother Vilma stage 3 Lung cancer Mother Vilma radiation Osteoporosis Mother Vilma Psychiatric Mother Vilma Thyroid disease Mother Vilma Vasculitis Mother Vilma purpura vascula r diseasemany vascular issues legs look similar to Jodeepain in feet Heart attack Mother's Sister 1 emergency hysterectomy Mother's Sister 2 Alcohol abuse Mother's Sister 3 Autoimmune disorder Mother's Sister 3 ADD / ADHD Nephew Intestinal cancer Paternal Grandfather Ankush sm oker Migraines Paternal Grandfather Ankush Stroke Paternal Grandfather Ankush Transient ischemic attack Paternal Grandfather Ankush Arthritis Paternal Grandmother Yamile in spin e Blood clot Paternal Grandmother Yamile in lung s and legs Diabetes Paternal Grandmother Yamile Stroke Paternal Grandmother Yamile Transient ischemic attack Paternal Grandmother Yamile ADD Son 1 Tristian Anxiety depression Son 1 Tristian ADD / ADHD Son 2 Mable Anxiety disorder Son 2 Mable PTSD Son 2 Mable milirary servic e ADD / ADHD Son 3 Treyton Anxiety disorder Son 3 Treyton GI problems Son 3 Treyton Relation Name Status Comments Brother Vladimir Alive Father Luis Daniel (Age 69) Father's Brother Alive unsure of d etails Father's Sister 1 Alive unsure of details Father's Sister 2 Alive Grandchild 1 Alive Grandchild 2 Alive Grandson Alive Maternal Cousin 1 Alive neck probl ems Maternal Cousin 2 Maternal Cousin 3 Alive Maternal Grandfather (Age 55) Maternal Grandmother Aidee (Age 94) Mother Vilma Alive Mother's Sister 1 Alive Mother's Sister 2 Alive Mother's Sister 3 Alive Nephew Alive Paternal Grandfather Ankush (Age 80s) Paternal Grandmother Yamile (Age 80s) Son 1 Tristian Alive skin sensory co ncerns Son 2 Mable Alive back and stomac h issuesconcerns with foot pain Son 3 Treyton Alive Social History Tobacco Use Types Packs/Day Years Used Date Smoking Tobacco: Every Day Cigarettes 1 25 Smokeless Tobacco: Never Tobacco Cessation:Ready to Q uit: Not Asked; Counseling Given: Not Answered Alcohol Use Standard Drinks/Week Comments Yes 2 (1 standard drink = 0.6 oz pur e alcohol) [facility] Utilities Answer Date Recorded In the past 12 months has e Exposed Vocals, gas, oil, or water [employer] threatened to shut off services in your [...] often do you attend chur ch or adventist services? Never 05/13/2021 Do you belong to any clubs o r organizations such as spiritism groups, unions, fraternal or athletic groups, or [...] Answer Date Recorded PHQ-2 Score 0 09/07/2023 [facility] - [...] your living situation today? I have a [facility] place to live 02/25/2024 Education Answer Date Recorded What is the highest level of school you have completed or the highest degree you have received? Some college, no degree 06/13/2019 Comments No Sex and Gender Information Value Date Recorded Sex Assigned at Female 07/06/2019 10:15 AM JEWELRY MANAGER Legal Sex Female 8:01 AM JEWELRY MANAGER Gender Identity Female 07/06/2019 10:15 AM JEWELRY MANAGER Sexual Orientation Not on file Last Filed Vital Signs Vital Sign Reading Time Taken Comments Blood Pressure 150/89 06/13/2024 11:46 AM JEWELRY MANAGER Pulse 78 06/13/2024 11:46 AM JEWELRY MANAGER Temperature 36.9 C (98.4 F) 05/26/2024 2:42 PM JEWELRY MANAGER Respiratory Rate 15 05/26/2024 2:42 PM JEWELRY MANAGER Oxygen Saturation 97% 04/24/2024 2:44 PM CDT Inhaled Oxygen Concentration - - Weight 54.2 kg (119 lb 7.8 oz) 07/16/2024 10:06 AM JEWELRY MANAGER Height 171.2 cm (5' 7.4) 07/16/2024 10:06 AM CS T Body Mass Index 18.49 07/16/2024 10:06 AM JEWELRY MANAGER Plan of Treatment Upcoming Encounters Date Type Department Care Team (Latest Contact Info) Description 07/30/2024 8:45 AM JEWELRY MANAGER Appointment Department of Radiology, [facility], in [place], [place] [address] [place] [address] Micaela Ellington APRN, C.NNadeem, M.S.N. [address] [place] [phone] 07/30/2024 10:00 AM JEWELRY MANAGER Procedure visit Department of Obstetrics and Gynecology in [place], [place] [address] [place] [address] Micaela Ellington APRN, C.N.P., M.S.N. [address] [place] [phone] Yaneth Edgar M.D. [address] [place] [address] Discharge Disposition: Home or Self Care 07/30/2024 12:45 PM JEWELRY MANAGER Comprehensive Visit Division of Vascular and Endovascular Surgery in [place], [place] [address] [place] [address] Joselo Horton M.D. [address] [place] [phone] Health Maintenance Due Date Last Done Comments CT Colonography 1975 Colonoscopy 1975 FIT 1975 Hepatitis C Screening 1975 Hepatitis B Vaccines (1 of 3 - 19+ 3-dose series) 1994 COVID-19 Vaccine (2023- season) 2024 Influenza Vaccine (#1) 2024 7, 08/03/2016, 03/22/2009, Additional history exists Depression Screening (Annual PHQ-2) 07/02/2024 Cologuard 12/22/2024 12/22/2021 Colorectal Cancer Screening 12/22/2024 Tobacco Cessation counseling 01/10/2025 01/11/2024 Mammogram 03/06/2025 03/06/2024, 08/08/2022, 12/05/2021, Additional history exists DTaP,Tdap,and Td Vaccines (3 - Td or Tdap) 05/25/2027 05/25/2017, 08/22/2007 Fasting Glucose for Diabetes Screening 06/02/2027 06/02/2024, 05/16/2024, 04/24/2024, Additional history exists Lipid (Cholesterol) Screening 02/22/2028 02/21/2023, 10/07/2020 Cervical/Vaginal Cancer Screening 06/13/2029 06/13/2024, 06/13/2024, 12/05/2021, Additional history exists HIV Screening Completed 06/23/2008 Pneumococcal vaccine (0-49 years) Completed 12/05/2021 IPV Vaccines Aged Out No longer eligi ble based on patient's age to complete this topic Procedures Procedure Name Priority Date/Time Associated Diagnosis Comments AXONAL, AUTOIMM/PARANEO, SERUM Routine 07/16/2024 12:21 PM JEWELRY MANAGER Paresthesia LOWER EXTREMITY ARTERIAL (GRETA) - EXERCISE (CLAUDICATION) Routine 06/16/2024 10:45 AM JEWELRY MANAGER Pain Leg Bilateral AUTONOMIC REFLEX SCREEN Routine 06/16/2024 8:49 AM JEWELRY MANAGER Neuropathy Peripheral THINPREP W/HPV CO-TEST SCREEN Routine 06/13/2024 1:04 PM JEWELRY MANAGER Pap Smear Examination HPV WITH GENOTYPING, PCR, THINPREP Routine 06/13/2024 1:04 PM JEWELRY MANAGER COMPREHENSIVE METABOLIC PANEL, S/P Routine 06/02/2024 9:20 AM JEWELRY MANAGER Elevated Blood Pressure CT ABDOMEN PELVIS WITH IV CONTRAST RAD - Routine (most inpatients and all outpatients) 05/28/2024 8:15 AM JEWELRY MANAGER Bloating Abdominal US PELVIS TRANSVAGINAL AND TRANSABDOMINAL RAD - Routine (most inpatients and all outpatients) 05/27/2024 7:13 PM JEWELRY MANAGER Bleeding Postmenopausal URINALYSIS WITH MICROSCOPIC IF INDICATED, U Routine 05/26/2024 4:07 PM JEWELRY MANAGER Bleeding Postmenopausal Bloating Abdominal EMG Routine 05/21/2024 12:36 PM JEWELRY MANAGER Neuropathy Peripheral THERMOREGULATORY SWEAT TEST Routine 05/21/2024 10:35 AM JEWELRY MANAGER Neuropathy Peripheral CRYOPRESERVATION FOR MOLEC STUDIES Routine 05/16/2024 11:59 AM JEWELRY MANAGER Neuropathy Peripheral HEMOGLOBIN A1C, B Routine 05/16/2024 11:59 AM JEWELRY MANAGER Neuropathy Peripheral SS-A AND SS-B ABS, IGG, S Routine 05/16/2024 11:59 AM JEWELRY MANAGER Neuropathy Peripheral ONEOME RIGHTMED Routine 04/28/2024 10:58 [...] Axonal Neuropathy, Autoimmune/Paraneoplastic Evaluation (07/16/2024 12:21 PM JEWELRY MANAGER) Autoimmune Axonal Interp, S see below 07/23/2024 9:07 AM JEWELRY MANAGER DTL Comment: No informative autoantibodies were detected in this evaluation. However, a negative result does not exclude an autoimmune neuropathy. IFA Notes None. 07/23/2024 9:07 AM JEWELRY MANAGER DTL Amphiphysin Ab, S Negative Negative 025 9:07 AM JEWELRY MANAGER DTL Comment: ----ADDITIONAL INFORMATION---- This test was developed and its performance characteristics determined by [facility] in a manner consistent with CLIA requirements. This test has not been cleared or approved by the U.S. Food and Drug Administration. ISRAEL-1, S Negative Negative 07/23/2024 9:07 AM JEWELRY MANAGER DTL Comment: ----ADDITIONAL INFORMATION---- This test was developed and its performance characteristics determined by [facility] in a manner consistent with CLIA requirements. This test has not been cleared or approved by the U.S. Food and Drug Administration. ISRAEL-3, S Negative Negative 07/23/2024 9:07 AM JEWELRY MANAGER DTL Comment: ----ADDITIONAL INFORMATION---- This test was developed and its performance characteristics determined by [facility] in a manner consistent with CLIA requirements. This test has not been cleared or approved by the U.S. Food and Drug Administration. AGNA-1, S Negative Negative 07/23/2024 9:07 AM JEWELRY MANAGER DTL Comment: ----ADDITIONAL INFORMATION---- This test was developed and its performance characteristics determined by [facility] in a manner consistent with CLIA requirements. This test has not been cleared or approved by the U.S. Food and Drug Administration. AP3B2 IFA, S Negative Negative 07/23/2024 9:07 AM JEWELRY MANAGER DTL Comment: ----ADDITIONAL INFORMATION---- This test was developed and its performance characteristics determined by [facility] in a manner consistent with CLIA requirements. This test has not been cleared or approved by the U.S. Food and Drug Administration. CASPR2-IgG CBA, S Negative Negative 025 9:07 AM JEWELRY MANAGER DTL Comment: ----ADDITIONAL INFORMATION---- This test was developed and its performance characteristics determined by [facility] in a manner consistent with CLIA requirements. This test has not been cleared or approved by the U.S. Food and Drug Administration. CRMP-5-IgG Western Blot, S Negative Negative 07/23/2024 9:07 AM JEWELRY MANAGER DTL Comment: ----ADDITIONAL INFORMATION---- This test was developed and its performance characteristics determined by [facility] in a manner consistent with CLIA requirements. This test has not been cleared or approved by the U.S. Food and Drug Administration. GFAP IFA, S Negative Negative 07/23/2024 9:07 AM JEWELRY MANAGER DTL Comment: ----ADDITIONAL INFORMATION---- This test was developed and its performance characteristics determined by [facility] in a manner consistent with CLIA requirements. This test has not been cleared or approved by the U.S. Food and Drug Administration. IgLON5 CBA, S Negative Negative 07/23/2024 9:07 AM JEWELRY MANAGER DTL Comment: ----ADDITIONAL INFORMATION---- This test was developed and its performance characteristics determined by [facility] in a manner consistent with CLIA requirements. This test has not been cleared or approved by the U.S. Food and Drug Administration. LGI1-IgG CBA, S Negative Negative 9:07 AM JEWELRY MANAGER DTL Comment: ----ADDITIONAL INFORMATION---- This test was developed and its performance characteristics determined by [facility] in a manner consistent with CLIA requirements. This test has not been cleared or approved by the U.S. Food and Drug Administration. NIF IFA, S Negative Negative 07/23/2024 9:07 AM JEWELRY MANAGER DTL Comment: ----ADDITIONAL INFORMATION---- This test was developed and its performance characteristics determined by [facility] in a manner consistent with CLIA requirements. This test has not been cleared or approved by the U.S. Food and Drug Administration. GENERAL MAINTENANCE ENGINEER-1, S Negative Negative 07/23/2024 9:07 AM JEWELRY MANAGER DTL Comment: ----ADDITIONAL INFORMATION---- This test was developed and its performance characteristics determined by [facility] in a manner consistent with CLIA requirements. This test has not been cleared or approved by the U.S. Food and Drug Administration. GENERAL MAINTENANCE ENGINEER-2, S Negative Negative 07/23/2024 9:07 AM JEWELRY MANAGER DTL Comment: ----ADDITIONAL INFORMATION---- This test was developed and its performance characteristics determined by [facility] in a manner consistent with CLIA requirements. This test has not been cleared or approved by the U.S. Food and Drug Administration. Blood (Blood, Venous) 07/16/2024 12:21 PM JEWELRY MANAGER 07/16/2024 1:58 PM JEWELRY MANAGER us Servando Garcias M.D. LAB BLOOD NON ADD-ON Fi nal Result [facility] [address] [place] [address], [facility] [address] [facility] [address] [place] [address] * Lower Extremity Arterial (GRETA) - Exercise (Claudication) (06/16/2024 10:45 AM JEWELRY MANAGER) Anatomical Region Laterality Modality Other 06/16/2024 9:59 AM JEWELRY MANAGER Narrative 06/16/2024 11:21 AM JEWELRY MANAGER Right: Doppler Waveforms: Normal at all levels [...] * Autonomic reflex Screen (06/16/2024 8:49 AM JEWELRY MANAGER) 06/16/2024 7:4 5 AM JEWELRY MANAGER Narrative [facility] AUTO - 06/16/2024 11:17 AM JEWELRY MANAGER FINAL REPORT AUTONOMIC REFLEX SCREEN [phone] Age: 49 Location: [facility] #: [id number] ChanningChalo arredondo Roxana Sex: F Order ID: [id number] Date: 06/16/2024 : 1975 Autonomic It Support Technician: Zulema Jalloh M.D. ([id number]) CONCLUSION Normal study. There is no evidence [...] to the Valsalva maneuver were normal. (B) [id number]-[id number] blood pressure responses to the Valsalva maneuver [...] Mathis M.D. NEUROLOGY ORDERABLES Fi nal Result [facility] AUTO * ThinPrep w/HPV Co-Test Screen (06/13/2024 1:04 PM JEWELRY MANAGER) 06/18/2024 1:07 PM JEWELRY MANAGER [facility] Report electronically signed by ANNY Monzon (ASCP) I verify that I have examined all relevant slides/materials for the specimen(s) and rendered or confirmed the diagnosis. 06/18/2024 1:07 PM JEWELRY MANAGER [facility] Gross Description Received specimen in a ThinPrep vial. 06/18/2024 1:07 PM JEWELRY MANAGER [facility] Pap Test Source Cervical/Endocervi noy 06/18/2024 1:07 PM JEWELRY MANAGER [facility] Hormone Therapy/Contracep tives None/Not known 06/18/2024 1:07 PM JEWELRY MANAGER [facility] Interpretation Cervical/Endocervi noy (ThinPrep): Satisfactory for Evaluation Negative for Intraepithelial Lesion or Malignancy High Risk HPV: Negative Negative for High Risk HPV by nucleic acid amplification. The following High Risk HPV types were not detected: 16, 18, 31, 33, 35, 39, 45, 51, 52, 56, 58, 59, 66, and 68. 06/18/2024 1:07 PM JEWELRY MANAGER [facility] Thin Prep Vial (Cervix/Endocerv ix) 06/13/2024 1:04 PM JEWELRY MANAGER 06/16/2024 7:38 AM JEWELRY MANAGER us Tad Manning APRNNDago., M.S.N. LAB PAP PATH DX ORDERABLES Final Result [facility] [address] [place] [address], [place] [facility] [address] [facility] [address] [place] [address] * HPV with Genotyping, PCR, ThinPrep (06/13/2024 1:04 PM JEWELRY MANAGER) HPV with Genotyping, ThinPrep, PCR Negative Negative 06/16/2024 2:47 PM JEWELRY MANAGER MKTO Comment: Negative for high risk HPV [...] correlated with patient's history, clinical presentation, and DEPUTY JUVENILE OFFICER cytology report. 06/13/2024 1:04 PM JEWELRY MANAGER 06/16/2024 7:38 AM JEWELRY MANAGER us Micaela Ellington APRN C.N.P., M.S.N. LAB MICROBIOLOGY - GENERAL ORDERABLES Final Result [facility] [address] [place] [address], [facility] MKTO [address] [place] [address] * Comprehensive Metabolic Panel (06/02/2024 9:20 AM JEWELRY MANAGER) Potassium, P 4.4 3.6 - 5.2 mmol/L 06/02/2024 9:47 AM JEWELRY MANAGER NPRG Sodium, P 143 135 - 145 mmol/L 06/02/2024 9:47 AM JEWELRY MANAGER NPRG Chloride, P 103 98 - 107 mmol/L 06/02/2024 9:47 AM JEWELRY MANAGER NPRG Bicarbonate, P 28 22 - 29 mmol/L 06/02/2024 9:47 AM JEWELRY MANAGER NPRG Anion Gap, P 12 7 - 15 06/02/2024 9:47 AM JEWELRY MANAGER NPRG BUN (Blood Urea Nitrogen), P 16 6 - 21 mg/dL 06/02/2024 9:47 AM JEWELRY MANAGER NPRG Creatinine 0.71 0.59 - 1.04 mg/dL 06/02/2024 9:47 AM JEWELRY MANAGER NPRG Estimated GFR (eGFR) >90 >=60 mL/min/BS A 06/02/2024 9:47 AM JEWELRY MANAGER NPRG Comment: Estimated GFR calculated using the 2020 CKD_EPI creatinine equation. Calcium, Total, P 9.8 8.6 - 10.0 mg/dL 06/02/2024 9:47 AM JEWELRY MANAGER NPRG Glucose, P 113 70 - 140 mg/dL 06/02/2024 9:47 AM JEWELRY MANAGER NPRG Protein, Total, P 7.3 6.3 - 7.9 g/dL 06/02/2024 9:47 AM JEWELRY MANAGER NPRG Albumin, P 4.8 3.5 - 5.0 g/dL 06/02/2024 9:47 AM JEWELRY MANAGER NPRG Aspartate Aminotransferase (AST), P 19 8 - 43 U/L 06/02/2024 9:47 AM JEWELRY MANAGER NPRG Alkaline Phosphatase, P 82 35 - 104 U/L 06/02/2024 9:47 AM JEWELRY MANAGER NPRG Alanine Aminotransferase (ALT), P 21 7 - 45 U/L 06/02/2024 9:47 AM JEWELRY MANAGER NPRG Bilirubin, Total, P 0.3 0.0 - 1.2 mg/dL 06/02/2024 9:47 AM JEWELRY MANAGER NPRG Blood (Blood, Venous) 06/02/2024 9:20 AM JEWELRY MANAGER 06/02/2024 9:22 AM JEWELRY MANAGER us Sadaf Go APRN, C.N.P., M.S.N. LAB BLOOD ADD -ON Final Result [facility] [address] [place] [address], [facility] NPRG [facility] [address] [place] [address] * CT Abdomen Pelvis with IV Contrast (05/28/2024 8:15 AM JEWELRY MANAGER) Anatomical Region Laterality Modality Abdomen, Pelvis, Abdominal R ST LOS, Abdominal ARZ LOS, Abdominal FLA LOS N/A Computed Tomography 05/28/2024 8:12 AM JEWELRY MANAGER Impressions 05/28/2024 8:28 AM JEWELRY MANAGER 1. Normal appearing appendix. 2. No acute intra-abdominal/pelvic pathology. 3. Findings that can be consistent with pelvic congestion syndrome, in the correct clinical context Narrative 05/28/2024 8:28 AM JEWELRY MANAGER EXAM: CT ABDOMEN PELVIS WITH IV CONTRAST [...] appendix in the right lower quadrant on [id number] of series 3. No small bowel or [...] Pelvis Transvaginal and Transabdominal (05/27/2024 7:13 PM JEWELRY MANAGER) Anatomical Region Laterality Modality Pelvis, Ultrasound RST LOS, Ultrasound ARZ LOS, Ultrasound FLA LOS N/A Ultrasound Impressions 05/27/2024 7:48 PM JEWELRY MANAGER 1. Endometrial thickening up to 7 mm, abnormal in a postmenopausal patient. Recommend gynecologic consultation for further evaluation. 2. A few endometrial echogenic foci/calcifications that are similar to 04/10/2023 and may be sequela of prior infection/instrumentation. 3. The ovaries are unremarkable. Narrative 05/27/2024 7:48 PM JEWELRY MANAGER EXAM: US PELVIS TRANSVAGINAL AND TRANSABDOMINAL COMPARISON: [...] ml. Intraperitoneal Fluid: None. Procedure Note Chu Ferrre M.D. - 05/27/2024 EXAM: US PELVIS TRANSVAGINAL [...] 3. The ovaries are unremarkable. us Sadaf Go APRN, C.N.P., M.S.N. IMG US PROCED URES Final Result * Urinalysis with Microscopic if Indicated (05/26/2024 4:07 PM JEWELRY MANAGER) Source Urine, Urine, Midstream 05/26/2024 4:11 PM JEWELRY MANAGER ERDG Clarity Clear Clear 05/26/2024 4:13 PM JEWELRY MANAGER ERDG Color Yellow 05/26/2024 4:13 PM JEWELRY MANAGER ERDG Comment: ----REFERENCE VALUE---- Colorless Yellow [place] Blood Negative Negative 05/26/2024 4:13 PM JEWELRY MANAGER ERDG Nitrite Negative Negative 05/26/2024 4:13 PM JEWELRY MANAGER ERDG Leukocyte Esterase Negative Negative 05/26/2024 4:13 PM JEWELRY MANAGER ERDG Protein Negative mg/dL 05/26/2024 4:13 PM JEWELRY MANAGER ERDG Comment: ----REFERENCE VALUE---- Negative Trace Glucose Negative Negative mg/dL 05/26/2024 4:13 PM JEWELRY MANAGER ERDG Ketones, QI(U) Negative Negative mg/dL 05/26/2024 4:13 PM JEWELRY MANAGER ERDG Bilirubin Negative Negative 05/26/2024 4:13 PM JEWELRY MANAGER ERDG pH 6.5 5.0 - 8.0 05/26/2024 4:13 PM JEWELRY MANAGER ERDG Specific Hunt 1.020 1.001 - 1.035 05/26/2024 4:13 PM JEWELRY MANAGER ERDG Urobilinogen 0.2 0.2 - 1.0 mg/dL 05/26/2024 4:13 PM JEWELRY MANAGER ERDG Urine (Urine, Midstream) 05/26/2024 4:07 PM JEWELRY MANAGER 05/26/2024 4:11 PM JEWELRY MANAGER us Sadaf Go APRN, C.N.P., M.S.N. LAB URINE ORD ERABLES Final Result [facility] [address] [place] [address], [facility] ERDG [facility] [place] [address] [address] [place] [address] * EMG (05/21/2024 12:36 PM JEWELRY MANAGER) 05/21/2024 1:15 PM JEWELRY MANAGER Narrative [facility] EMG - 05/21/2024 2:34 PM JEWELRY MANAGER Table formatting from the original result was not included. 21-May-2024 Electromyography Final Report Study Number: 1 EMG It Support Technician: Freddy Vizcarra 127 or [phone] Referred by: ANTIONETTE MATHIS (127 or [phone]) Referred for: SFN - LE Referral Code: [...] the interpretation. Kaitlyn Snow/Preethi Vizcarra (127 or [phone])/SMB NERVE CONDUCTIONS Record Rep Normal Normal Distal [...] Freddy Vizcarra M.D. at 05/21/2024 2:32:49 PM JEWELRY MANAGER Procedure Note Michael Vizcarra Jr., M.D. - 05/21/2024 21-May-2024 Electromyography Final Report Study Number: 1 EMG It Support Technician: Freddy Vizcarra 127 or [phone] Referred by: ANTIONETTE MATHIS (127 or [phone]) Referred for: SFN - LE Referral Code: [...] There is EMG evidence of a chronic L5-F3uwugunzfscehj with no active denervation. There is no evidence of a largefiber sensorimotor peripheral neuropathy. I have reviewed the findings of the examining physician and agree with theinterpretation. Kaitlyn Snow/Preethi Vizcarra (127 or [phone])/SMB NERVE CONDUCTIONS Record Rep Normal Normal Distal [...] Freddy Vizcarra M.D. at 05/21/2024 2:32:49 PM JEWELRY MANAGER Antionette Mathis M.D. NEUROLOGY ORDERABLES Ed ited Result - Final EMG * Thermoregulatory sweat test (05/21/2024 10:35 AM JEWELRY MANAGER) 05/21/2024 9:00 AM JEWELRY MANAGER Impressions [facility] JAKE AUTO - 05/21/2024 2:03 PM JEWELRY MANAGER There is hypohidrosis of the bilateral legs. [...] [facility] JAKE AUTO - 05/21/2024 2:03 PM JEWELRY MANAGER Table formatting from the original result was not included. Images from the original result were not included. FINAL REPORT Thermoregulatory Sweat Test -[id number] Age: 49 Location: [facility] Lab #: [id number] CHALO PERSON Sex: F Order ID: [id number] Date: 05/21/2024 : 1975 Autonomic It Support Technician: Zulema Jalloh M.D. ([phone]) Antionette Mathis M.D. NEUROLOGY ORDERABLES Fi nal Result Performing Organization Address City/[facility]/ZIP Co de Phone Number JAKE AUTO * SS-A and SS-B Antibodies, IgG (05/16/2024 11:59 AM JEWELRY MANAGER) Pathologist [facility] SS-A/Ro Ab, IgG, S <0.2 <1.0 (Negative) U 05/16/2024 5:01 PM JEWELRY MANAGER [facility] SS-B/La Ab, IgG, S <0.2 <1.0 (Negative) U 05/16/2024 5:01 PM JEWELRY MANAGER [facility] Blood (Blood, Venous) 05/16/2024 11:59 AM JEWELRY MANAGER 05/16/2024 3:54 PM JEWELRY MANAGER Antionette Mathis M.D. LAB BLOOD ADD-ON Final Result [facility] [address] [place] [address] [facility] [address] [place] [address] * Cryopreservation for Molecular Genetic Studies (05/16/2024 11:59 AM JEWELRY MANAGER) Comment A DNA specimen has been stored for future genomic studies. This specimen has been stored at the request of the ordering physician for anticipated future testing. In some instances, a portion of the specimen may remain available (by consent) for use by the individual and/or family. This is not a DNA banking service. If intermediate, guaranteed specimen storage is required, DNA banking should be considered. The Genomic Extraction Core extracted DNA. DNA Volume (microliters): 500+ Please review the following table to determine the possible number of tests that can be added for send out testing. DNA (ul) Possible Send Outs (~100 ul) <100 Recommend Redraw 100 1 250 2 500 5 05/19/2024 1:06 PM JEWELRY MANAGER DTL Specimen WB Whole Blood 05/19/2024 1:06 PM JEWELRY MANAGER DTL Released By WILL BEENINGA 05/19/2024 1:06 PM JEWELRY MANAGER DTL Blood (Blood, Peripheral Draw) 05/16/2024 11:59 AM JEWELRY MANAGER 05/16/2024 12:49 PM JEWELRY MANAGER Antionette Mathis M.D. LAB GENETIC TESTING Fin al Result Performing Organization Address City/[facility]/ZIP Co de Phone Number [facility] [address] [place] [address], [place] [address] * Hemoglobin A1c (05/16/2024 11:59 AM JEWELRY MANAGER) [facility] Hemoglobin A1c, B 5.5 4.0 - 5.6 % 05/16/2024 1:00 PM JEWELRY MANAGER DTL Blood (Blood, Venous) 05/16/2024 11:59 AM JEWELRY MANAGER 05/16/2024 12:40 PM JEWELRY MANAGER Antionette Mathis M.D. LAB BLOOD ADD-ON Final Result Performing Organization Address City/[facility]/ZIP Co de Phone Number [facility] [address] [place] [address], [address] [address] * [facility] PGx Test + MTHFR - Sent Out Lab (04/28/2024 10:58 AM CDT) [facility] Comments See Comment 05/05/2024 9:11 AM JEWELRY MANAGER OOMI Comment: General Lab Comments: Interpretive Guidance - Hemizygous males and homozygous females are reported as HTR2C CC. CY phenotype Rapid metabolizer 05/05/2024 9:11 AM JEWELRY MANAGER OOMI CY genotype *1F/*1F 9:11 AM JEWELRY MANAGER OOMI Comment: Increased enzyme activity is likely based on the genotype results. This activity is more than a normal metabolizer, but less than an ultrarapid metabolizer. The metabolism of the medication affected by this gene is predicted to be increased. CYP2B6 phenotype Intermediate metabolizer 05/05/2024 9:11 AM JEWELRY MANAGER OOMI CYP2B6 genotype *1/*6 9:11 AM JEWELRY MANAGER OOMI Comment: Decreased enzyme activity is likely based on the genotype results. Decreased metabolism of the medication affected by this gene is predicted. CYP2C9 phenotype Intermediate metabolizer 05/05/2024 9:11 AM JEWELRY MANAGER OOMI CYP2C9 genotype *1/*3 9:11 AM JEWELRY MANAGER OOMI Comment: Decreased enzyme activity is likely based on the genotype results. Decreased metabolism of the medication affected by this gene is predicted. CYP2C cluster phenotype Normal 05/05/2024 9:11 AM JEWELRY MANAGER OOMI CYP2C cluster genotype [id number] GG 05/05/2024 9:11 AM JEWELRY MANAGER OOMI Comment: CYP2C [id number] homozygous wild-type genotype consistent with normal clearance of a certain medication, independent of the impact of CYP2C9*2 and *3. CYP2C [id number], together with CYP4F2, CYP2C9, and VKORC1, may affect treatment management of a certain medication. [id number] phenotype Rapid metabolizer 05/05/2024 9:11 AM JEWELRY MANAGER OOMI EVR2P04 genotype *1/*17 05/05/20 9:11 AM JEWELRY MANAGER OOMI Comment: Increased enzyme activity is likely based on the genotype results. This activity is more than a normal metabolizer, but less than an ultrarapid metabolizer. The metabolism of the medication affected by this gene is predicted to be increased. CYP2D6 phenotype Normal metabolizer 05/05/2024 9:11 AM JEWELRY MANAGER OOMI CYP2D6 genotype *1/*41 9:11 AM JEWELRY MANAGER OOMI Comment: Fully functional enzyme activity is likely based on the genotype results. Normal metabolism of the medication affected by this gene is predicted. CY phenotype Normal metabolizer 05/05/2024 9:11 AM JEWELRY MANAGER OOMI CY genotype *1/*1 9:11 AM JEWELRY MANAGER OOMI Comment: Fully functional enzyme activity is likely based on the genotype results. Normal metabolism of the medication affected by this gene is predicted. CY phenotype Poor metabolizer 05/05/2024 9:11 AM JEWELRY MANAGER OOMI CY genotype *3/*3 9:11 AM JEWELRY MANAGER OOMI Comment: This CY genotype is associated with the phenotype most prevalent in studies used to define standard dosing guidelines. CYP4F2 phenotype Reduced activity 05/05/2024 9:11 AM JEWELRY MANAGER OOMI CYP4F2 genotype *1/*3 9:11 AM JEWELRY MANAGER OOMI Comment: Genotype consistent with reduced activity [...] COMT phenotype High activity 024 9:11 AM JEWELRY MANAGER OOMI COMT genotype [id number] GG 05/05/2024 9:11 AM JEWELRY MANAGER OOMI Comment: The GG (Josette/Josette) genotype is associated with higher COMT activity than AA (Met/Met) or GA (Josette/Met) genotypes. DPYD phenotype Normal metabolizer 05/05/2024 9:11 AM JEWELRY MANAGER OOMI DPYD genotype *1/*1 05/05/2024 9:11 AM JEWELRY MANAGER OOMI Comment: DPD activity score= 2. This genotype and activity score is consistent with a normal metabolizer phenotype. 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 F2 phenotype Normal risk 05/05/2024 9:11 AM JEWELRY MANAGER OOMI F2 genotype [id number] GG 05/05/2024 9:11 AM JEWELRY MANAGER OOMI Comment: Normal risk of thrombosis associated with Factor II (prothrombin). Other genetic and clinical factors contribute to the risk for thrombosis. F5 phenotype Normal risk 05/05/2024 9:11 AM JEWELRY MANAGER OOMI F5 genotype [id number] GG 05/05/2024 9:11 AM JEWELRY MANAGER OOMI Comment: Normal risk of thrombosis associated with Factor V. Other genetic and clinical factors contribute to the risk for thrombosis. GRIK4 phenotype Normal receptor function 05/05/2024 9:11 AM JEWELRY MANAGER OOMI GRIK4 genotype [id number] CC 05/05/20 9:11 AM JEWELRY MANAGER OOMI Comment: Glutamate ionotropic receptor kainate type subunit 4 (GRIK4) genotype is consistent with normal receptor function. HLA-A phenotype Normal risk 05/05/20 9:11 AM JEWELRY MANAGER OOMI HLA-A genotype Negative 05/05/2024 9:11 AM JEWELRY MANAGER OOMI Comment: Negative for the presence of [...] HLA-B phenotype Normal risk 05/05/20 9:11 AM JEWELRY MANAGER OOMI HLA-B genotype Negative 05/05/2024 9:11 AM JEWELRY MANAGER OOMI Comment: Negative for presence of the [...] HTR2A phenotype Variant absent 05/05 9:11 AM JEWELRY MANAGER OOMI HTR2A genotype [id number] TT 05/05/20 9:11 AM JEWELRY MANAGER OOMI Comment: The TT genotype is the wildtype genotype associated with intron 2 of the HTR2A gene. HTR2C phenotype Normal receptor expression 05/05/2024 9:11 AM JEWELRY MANAGER OOMI HTR2C genotype [id number] CC 05/05/20 9:11 AM JEWELRY MANAGER OOMI Comment: This genotype is associated with normal transcriptional activity of the HTR2C gene. IL28B (IFNL4) phenotype Normal 05/05/2024 9:11 AM JEWELRY MANAGER OOMI IL28B (IFNL4) genotype [id number] CC 05/05/2024 9:11 AM JEWELRY MANAGER OOMI Comment: Genotype consistent with a normal likelihood of hepatitis C sustained virologic response (SVR) with certain treatment options. MTHFR phenotype Decreased activity 05/05/2024 9:11 AM JEWELRY MANAGER OOMI MTHFR genotype [id number] AA, [id number] CT 05/05/2024 9:11 AM JEWELRY MANAGER OOMI Comment: This MTHFR genotype is associated with decreased enzyme activity. NUDT15 phenotype Normal metabolizer 05/05/2024 9:11 AM JEWELRY MANAGER OOMI NUDT15 genotype *1/*1 9:11 AM JEWELRY MANAGER OOMI Comment: NUDT15 genotype is consistent with normal enzyme activity and is not associated with an increased risk of thiopurine-induced toxicities. Toxicities with thiopurines can occur due to impaired TPMT activity independently from the NUDT15 activity. OPRM1 phenotype Variant absent 05/05 9:11 AM JEWELRY MANAGER OOMI OPRM1 genotype [id number] AA 05/05/20 9:11 AM JEWELRY MANAGER OOMI Comment: The AA genotype (or Asn/Asn isoform) is the wildtype genotype associated with the mu-1 opioid receptor. GCSM5E3 phenotype Normal function 9:11 AM JEWELRY MANAGER OOMI EVSV0P8 genotype *1/*1 05/05/20 9:11 AM JEWELRY MANAGER OOMI Comment: TORV5L8 genotype consistent with normal function of the CYOQ3S7 transporter. TPMT phenotype Normal metabolizer 05/05/2024 9:11 AM JEWELRY MANAGER OOMI TPMT genotype *1/*1 05/05/2024 9:11 AM JEWELRY MANAGER OOMI Comment: TPMT genotype is consistent with a normal metabolizer phenotype and is not associated with an increased risk of thiopurine-induced toxicities. Toxicities with thiopurines can occur due to impaired NUDT15 activity independently from the TPMT activity. UGT1A1 phenotype Normal metabolizer 05/05/2024 9:11 AM JEWELRY MANAGER OOMI UGT1A1 genotype *1/*1 9:11 AM JEWELRY MANAGER OOMI Comment: Genotype consistent with fully functional UGT1A1 enzyme activity, or a normal metabolizer phenotype. VKORC1 phenotype Low activity 2023 9:11 AM JEWELRY MANAGER OOMI VKORC1 genotype [id number] AA 024 9:11 AM JEWELRY MANAGER OOMI Comment: Genotype consistent with low activity of the vitamin K epoxide reductase enzyme, associated with the c.-1639AA ([id number]) variant. VKORC1, together with CYP2C9, CYP4F2, and a variant in CYP2C Cluster, may affect treatment management of a certain medication. SLC6A4 phenotype Typical to reduced expression 05/05/2024 9:11 AM JEWELRY MANAGER OOMI SLC6A4 genotype L/S (La/Sa) 05/05/20 24 9:11 AM JEWELRY MANAGER OOMI Comment: Genotype consistent with a typical to reduced expression of the SLC6A4 transporter compared to the L/L (La/La) genotype. This genotype was shown to exhibit different phenotypes in East populations, as opposite outcomes were observed for this genotype in East populations when compared to populations. Laboratory methods See Comment 05/05 9:11 AM JEWELRY MANAGER OOMI Comment: This test was developed and its performance characteristics determined by [facility], a clinical laboratory located at [address] [place] [address]. These tests have not been cleared or approved by the U.S. Food and Drug Administration. The FDA does not require this test to go through premarket FDA review. [facility] is certified under CLIA-88 and accredited by the [employer] as qualified to perform high-complexity testing. This test is used for clinical purposes and should not be regarded as investigational or for research. Genomic DNA was analyzed by PCR-based [employer] Direct TaqMan(R) and/or [employer] BHQ(R) probe-based methods to interrogate the variant locations [...] *2, *3, *4, *5, *6, *8, *11 TVL5M06 - *2, *3, *4, *4B, *10, *17 CYP2D6 - *2, *2A, *3, *4, *4M, *4N, *5, *6, *6C, *7, *8, *9, *10, *11, *12, *13, *14, *15, *17, *18, *19, *29, *31, *34, *35, *36, *39, 41, *42, *59, *63, *64, *68, *69, *70, *91, *109, *114 CY - *1B, *22 CY - *3, *6, *7 CYP4F2 - *3 DPYD - *2A, *13 ZICF7X9 - *5, *15, *17, *21 TPMT - [...] are associated with more than one haplotype, [facility] infers and reports the most likely diplotype based on published allele frequency and/or ethnicity data. Inferences with potential clinical impact are reported in the Report and laboratory comments section. The variant detection methods validated by [facility] provide >99.9% accuracy; however, PCR may be [...] 8 AM CDT 04/29/2024 8:56 AM CDT Sadaf Go APRN C.N.P., M.S.N. LAB GENETIC T ESTING Final Result [facility] [address] [place] [address], [address] [place] [id number] OOMI [facility] [address] [place] [address], [address] [address] * BI Breast Screening Bilateral with Tomosynthesis [...] Annual Screening Mammogram ASSESSMENT: BI-RADS: 2: Benign. us Sadaf Go APRN, C.N.P., M.S.N. IM BI PROCED URES Final Result * (ABNORMAL) [...] or more) yes 02/21/2023 2:29 PM CDT [facility] Blood (Blood, Venous) 02/21/2023 11:04 AM CDT 02/21/2023 2:29 PM CDT us Sadaf Go APRN, C.N.P., M.S.N. LAB BLOOD ADD -ON Final Result [facility] [address] [place] [address], [facility] MKTO [facility] [place] [address] * Cologuard-Sent Out Lab (12/22/2021 6:28 AM [...] (Suzy Macdonald al, N Engl J Med 2014;370(14):9007-1821) The normal value (reference range) for this assay is negative. COLOGUARD RE-SCREENING RECOMMENDATION: Periodic colorectal cancer screening is an important part of preventive healthcare for asymptomatic individuals at average risk for colorectal cancer. Following a negative Cologuard result, the [place] [employer] Society and U.S. Multi-Society Task Force screening guidelines recommend a Cologuard re-screening interval of 3 years. References: [place] [employer] Guideline for Colorectal Cancer Screening: https://www.cancer.org/cancer/itbff-frywrp-pvqefz/detection- diagnosis-staging/acs-recommendations.html.; Sherman DK, Comfort CR, Panchito SullivanK, Colorectal Cancer Screening: Recommendations for Physicians and Patients from the U.S. Multi-Society Task Force on Colorectal Cancer Screening , Am J Gastroenterology 2017; 112:2778-7391. TEST DESCRIPTION: Composite algorithmic analysis of stool [...] screened with both Cologuard and colonoscopy. (Suzy Alvarez et al, N Engl J Med 2014;370(14):6981-5877.) Cologuard may produce a false negative or false positive result (no colorectal cancer or precancerous polyp present at colonoscopy follow up). A negative Cologuard test result does not guarantee the absence of CRC or advanced adenoma (pre-cancer). The current Cologuard screening interval is every 3 years. ([place] [employer] and U.S. Multi-Society Task Force). Cologuard performance data in a 10,000 patient pivotal study using colonoscopy as the reference method can be accessed at the following location: www.[email or web address]/results. Additional description of the Cologuard test process, warnings and precautions can be found at www.[employer].com. Stool (Stool) 12/22/2021 6:2 8 AM CDT 12/23/2021 8:35 PM CDT us Candice Corado M.D. LAB BODY FLUIDS AND STOOLS ORD ERABLES Final Result [facility] [address] [place] [address] [facility] [address] [facility], [address] [place] [address] from Last 3 Months or Most Recently Relevant to Health Maintenance Insurance [employer] Care Teams [employer] Instructor Relationship Specialty Start Date End Date Sadaf Go APRN, C.N.P., M.S.N. [address] [place] [place] [id number] PCP - General Family Medicine 08/08/19
--- OUTSIDE RECORDS SUMMARY | 2024-07-27 14:29 | XMS_ITS | Continuity of Care Document ---
Author Organization [facility] Address [address] [place] [address] Phone Care Team Providers Care Medical Lab Scientist Name Role Phone Fran Hong Unavailable Unavailable Allergies, Adverse Reactions, Alerts Substance Reaction Status Criticality levofloxacin Active No Information Procedures Procedure Date Office/Outpatient Visit,[facility] [place] 2023 Advance Directives Directive Yes / No Effective Date File Name No Information Encounters Encounter Description Practice Location Reason(s) For Visit Diagnoses Date Provider Providers Copied on Encounter Office/Outpati ent Visit,[facility], [facility] [place] [facility], [address], [place], [place], [id number], [place] tel:[phone] [facility] [place] Low back pain Mike Pteers. [facility], [address], [address], [place], [address], [place]. tel:[phone] Referring Provider: Brianna Juarez [facility] [address] [address], [place], [address]. tel:[phone] Family History Family Member Type Diagnosis Age At Onset No Information Payers Payer name Insurance type Covered democrat ID Authornoelle jain(s) [facility] [id number] [facility] [id number] Social History Type Description Quantity Date Captured Comments Alcohol Use Details Unknown Caffeine Use Details Unknown Tobacco Use Status Smoking Status Unknown if ever smoked Non-Smoking Tobacco Use Details : No Details Available : No Details Available Sex Female Vital Signs Date / Time: Height Weight BMI Pulse Rate Blood Pressure Temperature Respiratory Rate Body Surface Area Head Circumference Head Circ. Percentile Wt./Alex. Percentile BMI percentile Pulse Ox Inhaled Ox 2:05 PM 69.40 in 68.492 kg (151.00 lbs) 22.0 4 kg/m eter (2) Chief Complaint And Reason For Visit No Information Reason For Referral Reason For Referral No Information History Of Present Illness Encounter Date Complaint History Of Prese nt Illness No Information Functional Status Date Functional Assessmen t No Information Instructions Date Instruction Additional Infor mation No Information Assessments Type Assessment Date assessment Low back pain Patient Care Teams Name Effective Dates (start - stop) Status Members No Information
[2024-07-27 14:31] LABS: Basophils Absolute Auto 0.04 K/uL (0.00-0.30); Basophils Percent Auto 0.4 % (0.0-3.0); Eosinophils Absolute Auto 0.09 K/uL (0.00-0.50); Eosinophils Percent Auto 0.9 % (0.0-7.0); Hematocrit 43.5 % (33.0-51.0); Hemoglobin* 14.3 gm/dL (12.0-16.0); Immature Granulocytes Abs Auto 0.02 K/uL (0.00-0.30); Immature Granulocytes Pct Auto 0.2 %; Lymphocytes Absolute Auto 2.36 K/uL (0.90-2.90); Lymphocytes Percent Auto 24.8 % (20-44); Mean Corpuscular HGB Conc 33 gm/dL (32-36); Mean Corpuscular Hemoglobin 30 pg (26-34); Mean Corpuscular Volume 91 fL (80-100); Monocytes Percent Auto 6.3 % (0.0-11.0); Neutrophils Percent Auto 67.4 % (42.0-72.0); Platelet Count* 328 K/uL (140-440); RDW Coefficient of Variation % 12.2 % (11.5-15.5); Red Blood Count 4.77 m/uL (4.00-5.20); White Blood Count* 9.51 K/uL (4.50-11.00)
[2024-07-27 14:45] LABS: Appearance Urine Clear (Clear); Bilirubin Urine Negative (Negative); Blood Urine Negative (Negative); Color Urine Yellow (Yellow); Glucose Urine Negative (Negative); Ketones Urine Negative (Negative); Leukocyte Esterase Urine Negative (Negative); Nitrite Urine Negative (Negative); Protein Urine Negative (Negative); Urobilinogen Urine 0.2 (0.2-1.0)
[2024-07-27 14:46] LABS: Slide Review Reflex No
[2024-07-27 14:47] LABS: Ur HCG Qualitative* Negative (Negative)
[2024-07-27 14:49] LABS: Chloride* 106 mmol/L (96-114); Potassium* 3.8 mmol/L (3.6-5.1); Sodium* 141 mmol/L (135-149)
[2024-07-27 14:50] LABS: Albumin* 4.5 g/dL (3.3-5.0)
[2024-07-27 14:51] LABS: Creatinine* 0.6 mg/dL (0.5-1.5); Est. Creatinine Clearance* 90.96; Estimated Glomerular Filt Rate 110 ml/min
[2024-07-27 14:52] LABS: Anion Gap 9 mEq/L (7-15); Blood Urea Nitrogen* 17 mg/dL (5-24); Calcium* 9.6 mg/dL (8.4-10.6); Carbon Dioxide* 26 mmol/L (20-32); Glucose* 100 mg/dL (60-115)
[2024-07-27 14:53] LABS: Alanine Aminotransferase* 19 U/L (4-35); Alkaline Phosphatase* 69 U/L (40-150); Aspartate Amino Transferase* 18 U/L (12-35); Bilirubin Direct* 0.2 mg/dL (0.0-0.5); Bilirubin Total* 0.4 mg/dL (0.1-1.5); Total Protein* 6.9 g/dL (6.0-8.3)
[2024-07-27 14:54] LABS: Acetaminophen* < 10.0 ug/mL (10.0-30.0); Salicylate* < 1.0 mg/dL (1.0-10)
[2024-07-27 14:55] LABS: Amphetamine Screen Urine Negative (Negative); Barbiturate Screen Urine Negative (Negative); Benzodiazepines Screen Urine Negative (Negative); Cannabinoid Screen Urine POSITIVE (Negative); Cocaine Screen Urine Negative (Negative); Methadone Screen Urine Negative (Negative); Methamphetamines Screen Urine Negative (Negative); Opiate Screen Urine Negative (Negative); Oxycodone Screen Urine Negative (Negative); Phencyclidine Screen Urine Negative (Negative); RBC Urine 0-2 (0-2); Tricyclic Antidepressant Urine Negative (Negative); WBC Urine 0-2 (0-5)
[2024-07-27 15:01] LABS: Ethanol* < 0.00 % (0.01-0.03)
[2024-07-27 15:20] LABS: SARS PCR* Negative SARS-CoV-2 (Negative)
[2024-07-27 15:45] LABS: Thyroid Stimulating Hormone* 0.676 uIU/mL (0.270-4.20)
[2024-07-27] MEDS: LORazepam 1 MG TABLET PO ×2 (16:20→23:07)
--- NOTE | 2024-07-27 17:14 | ED.NURSE ---
Pt did cooperatively change to paper scrubs upon arrival to ER however thus far Pt refuses to remove her necklace. Pt has eaten a salad. Pt offered evening meal, more blankets and pillows, and tylenol for chronic pain and Pt declines and states 'I'll just be tortured'. Pt also uses a pain relieving device at home. Pt sister in law offered to bring in to the ER and Pt declined this as well.
--- NOTE | 2024-07-27 19:15 | ED.NURSE ---
Call from Dave Goetz declined Pt due to acuity.
--- NOTE | 2024-07-27 19:15 | ED.NURSE ---
Call from Bishnu,
--- NOTE | 2024-07-27 20:26 | ED.NURSE ---
Pt has been sleeping since shortly after ativan was administered. Pt brother did visit and sister in law remains in room. Pt covered with second blanket. Pt remains of video camera monitor.
[2024-07-27 21:00] VITALS: BP 135/91; PULSE 64; RESP 16; TEMP 36.2; O2SAT 95
--- NOTE | 2024-07-27 21:45 | ED.NURSE ---
Call from Bishnu. [facility] has not received faxes. Call to [facility]. Since their fax machine isn't working they are not accepting patients. Try in am.
--- NOTE | 2024-07-27 23:01 | ED.NURSE ---
Pt sister in law is now leaving. Pt did allow for necklace to be placed with the rest of her belongings. Pt asked to pay her bills with her cellphone however doesn't have passwords. [id number] will help with this in the morning.
--- NOTE | 2024-07-27 23:12 | ED.NURSE ---
At this time, Pt again refuses nicotine patch, states they don't work. Pt provided ativan and blankets to assist with sleep.
--- NOTE | 2024-07-28 01:25 | ED.NURSE ---
Pt woke from sleep, refuses Depakote. Pt daughter in law here now.
--- NOTE | 2024-07-28 07:48 | ED.NURSE ---
Pt is resting in bed at this time
[2024-07-28 08:00] VITALS: BP 123/60; PULSE 61; RESP 18; TEMP 36.9; O2SAT 94
--- NOTE | 2024-07-28 08:16 | ED.NURSE ---
Pt provided with personal care items and a breakfast menu. Pt sister in law is in the room at this time. Pt is calm and cooperative, at this time.
--- NOTE | 2024-07-28 09:04 | ED.NURSE ---
Pt given cell phone, asked for it to pay for her bills. Pt is calm and cooperative at this time. Pt daughter in-law, and sister in-law are in room at this time.
--- NOTE | 2024-07-28 09:37 | ED.NURSE ---
Pt offered lorazepam, pt declined due to not wanting to sleep at the moment, and not wanting her brain controlled.
--- NOTE | 2024-07-28 10:11 | ED.NURSE ---
Pt provided with hospital crew-neck sweatshirt, stating hospital given scrubs are making her sweaty. Pt allowed to wear her own leggings. No drawstrings on the leggings.
[2024-07-29 14:49] LABS: Hep A Ab, IgM Negative (Negative); Hep B Core Ab, IgM Negative (Negative); Hep B Surface Antigen Negative (Negative); Hep C Ab by CIA Index 0.13 IV; Hep C Ab by CIA Interp Negative (Negative)
== END 2024-07-28 13:05 | disposition home or self-care (01) ==
PROVIDERS: Family Medicine; Emergency Provider Family Medicine
DX: G47.00 Insomnia, unspecified (principal); Z51.81 Encounter for therapeutic drug level monitoring; Z11.59 Encounter for screening for other viral diseases
CPT/HCPCS: 36415; 80048; 80074; 80076; 80143; 80179; 80306; 81001; 81025; 82077; 84443; 85025; 87635; 99284; 99285; Q3014; A9270